=== PATIENT | female | born 1950 | race Caucasian/White ===

== ENCOUNTER 2025-07-03 09:35 | Emergency (ER) | payer MEDICARE, OTHER, SELFPAY ==
--- OUTSIDE RECORDS SUMMARY | 2021-02-22 09:30 | XMS_ITS | Continuity of Care Document ---
Author Organization [facility] Address [address] [place] [address] Phone Care Team Providers Care Director Product Management Name Role Phone Silvino PT, DPT, Compa Unavailable Unavailab le Procedures Procedure Date Therapeutic Activities PT Evaluation Moderate Complexity Manual Therapy Therapeutic Activities Advance Directives Directive Yes / No Effective Date File Name No Information Encounters Encounter Description Practice Location Reason(s) For Visit Diagnoses Date Provider Providers Copied on Encounter [facility], [address], [place], [place], [id number], tel:[phone] Brittani Oscar [facility] [place] No Information Silvino Segovia Referring Provider: Samuel Mclain, [address] [place] [address], [id number]. tel:[phone] [address], [place], [place], [id number], tel:[phone] Walton [facility] No Information Silvino Segovia Family History Family Member Type Diagnosis Age At Onset No Information Payers Payer name Insurance type Covered green party ID Authorjanell kolb(s) Medicare [place]LIN [id number] [facility] [facility] CI [id number] Social History Type Description Quantity Date Captured Comments Sex Female Smoking Status No Information Chief Complaint And Reason For Visit No Information Reason For Referral Reason For Referral No Information History Of Present Illness Encounter Date Complaint History Of Prese nt Illness No Information Functional Status Date Functional Assessmen t No Information Instructions Date Instruction Additional Infor mation Giving encouragement to exercise Related to Overweight Giving encouragement to exercise Related to Overweight Assessments Type Assessment Date No Information Patient Care Teams Name Effective Dates (start - stop) Status Members No Information
--- OUTSIDE RECORDS SUMMARY | 2025-05-19 08:52 | XMS_ITS | Encounter Summary ---
Author Organization [facility] [employer] [facility] Address [address] [address] [place] [address] Care Team Providers Care Dockworker Name Role Phone Compa Guevara MD Primary Care Provider [phone] Provider, No Attributed RESOURCE Unavailable Unavailable Rain Castle RN Unavailable [phone] Compa Guevara MD Unavailable [phone] Reason for Visit * FCC PT (Routine) [...] PROC Compa Guevara MD [address] [facility] [address] Phone: tel: fax: [facility] [address] [place] [address] Phone: tel: fax: Referral ID Status Reason Start Date Expiration Date Visits Requested Visits Authorized [id number] Authorized Continuity of Care 05/19/2025 09/22/2025 99 99 Encounter Details Date Type Department Care Team (Latest Contact Info) Description 05/19/2025 8:52 AM CDT - 05/19/2025 11:59 PM CDT Hospital Encounter [facility] PH[facility]ICAL THERAPY [address] [facility] [address] [place] [address] Compa Guevara MD [address] [place] [address] Miranda Rose, PT [address] [place] [address] Unsteadiness Discharge Disposition: Still a Patient Social [...] often do you attend chur ch or amish services? Never 11/19/2023 Do you belong to any clubs o r organizations such as uatsdin groups, unions, fraternal or athletic groups, or [...] Answer Date Recorded PHQ-2 Total 3 04/20/2025 [facility] Occup[facility] ional Health - Occupational [...] place to sleep or slept in a senior living (including now)? No 11/19/2023 Housing Stability Vital Sign Answer Henrik e Recorded In the last 12 months, was t here a time when you were not able to pay the mortgage or rent on time? No 09/02/2024 In the past 12 months, how m any times have you moved where you were living? 0 09/02/2024 At any time in the past [address] [facility], were you homeless or living in a senior living (including now)? No 09/02/2024 Hunger Vital Sign [...] any time in the past [address] [facility], were you homeless or living in a senior living (including now)? No 04/20/2025 [facility] Utilities Answer Date Recorded In the past [...] DAILY (PLEASE CALL TO SCHEDULE FOLLOW UP [phone]) 90 tablet 3 5 DULoxetine (CYMBALTA) 60 [...] Vitamin C 40mg, Grape Seed Extract 26.3mg, [place] Fruit Extract 100mg, L-lysine 125mg OIL OF [...] nasal sprayIndications:Pl ugged feeling in ear, right [place] 2 sprays into each nostril 1 time [...] CDT Patient Name: Ace Domínguez : 1950 [facility]#: [id number] MR#: [id number] ZAYRA: [id number] Referring Provider: No ref. provider found Reason [...] this program: Increase Strength and improve balance Hoahaoism/Cultural Practices Incorporated into Care: none Preferred Learning [...] Total Time: 42 minutes Treatment: Access Code: [email or web address] Exercises - Seated March - 2 x [...] with SPC and no loss of balance Agricultural Scientist Goals: To be met within 12 weeks: [...] Compa Benson MD for [facility]. If you have any questions or concerns regarding this patient's physical therapy evaluation or plan of care, please contact me at [phone]. Sincerely, Miranda Rose PT, DPT Cosigned by Compa Guevara MD at 05/19/2025 2:16 PM CDT documented in this encounter Plan of Treatment Upcoming Encounters Date Type Department Care Team (Latest Contact Info) Description 07/06/2025 4:00 PM CDT Appointment [facility] PHYSICAL THERAPY [address] [facility] [address] [place] [address] Compa Guevara MD [address] [place] [address] Miranda Rose, PT [address] [place] [address] 07/20/2025 10:00 AM CDT Office Visit [facility] [address] [facility] [address] [place] [address] Addi Matias, DPM [address] [place] [address] Discharge Disposition: Home, Self Care 07/22/2025 9:45 AM CDT Appointment [facility] PHYSICAL THERAPY [address] [place] [address] Compa Guevara MD [address] [place] [address] Miranda Rose, PT [address] [place] [address] 07/28/2025 9:30 AM VOCATIONAL ADVISER Office Visit [facility] [place] [facility] [address] [place] [address] Compa Guevara MD [address] [place] [address] Discharge Disposition: Home, Self Care 07/28/2025 3:15 PM VOCATIONAL ADVISER Appointment [facility] PH[facility]ICAL THERAPY [address] [facility] [address] [place] [address] Compa Guevara MD [address] [place] [address] Miranda Rose, PT [address] [place] [address] 08/03/2025 9:15 AM VOCATIONAL ADVISER Appointment [facility] PHYSICAL THERAPY [address] [place] [address] Compa Guevara MD [address] [place] [address] Miranda Rose, PT [address] [place] [address] 2025 2:30 PM VOCATIONAL ADVISER Appointment [facility] PHYSICAL THERAPY [address] [place] [address] Compa Guevara MD [address] [place] [address] Miranda Rose, PT [address] [place] [address] 08/13/2025 9:00 AM VOCATIONAL ADVISER Appointment [facility] PH[facility]ICAL THERAPY [address] [place] [address] Compa Guevara MD [address] [place] [address] Miranda Rose, PT [address] [place] [address] 10/18/2025 8:30 AM VOCATIONAL ADVISER Ancillary Procedure [facility] [address] [place] [address] Discharge Disposition: Home, Self Care documented as of this encounter Goals Goal Patient Goal Type Associated Problems Recent Progress Patient-Stated? Author DIET - REDUCE SUGAR INTAKE Diet Not on track( 10:54 AM CDT) No Rain Castle APRN-FURNACE INSTALLER DIET - KEEP A DAILY FOOD DIARY Diet Yes Mariangel Virk, SENAIT Note: 07/17/22 Use a food journal or [employer] It mariela to document all food eaten [...] gait documented in this encounter Care Teams Dockworker Relationship Specialty Start Date End Date Compa Guevara MD [address] [place] [address] PCP - General Internal Medicine 08/18/19 Compa Guevara MD [address] [place] [address] PCP - Attributed Provider 03/17/21 Provider, No Attributed, RESOURCE [address] 08/13/16 Rain Castle, RN [address] [facility] [place] [address] Fine SanderSpooler Operator Automatic Medicine 05/18/15 documented as of this encounter
--- OUTSIDE RECORDS SUMMARY | 2025-05-21 09:14 | XMS_ITS | Encounter Summary ---
Author Organization [facility] [employer] [facility] Address [address] [place] [address] [address] [place] [address] Care Team Providers Care Master Cosmetologist Name Role Phone Compa Guevara MD Primary Care Provider Provider, No Attributed RESOURCE Unavailable Unavailable Rain Castle RN Unavailable [phone] Compa Guevara MD Unavailable [phone] Reason for Visit * FCC PT (Routine) [...] PROC Compa Guevara MD [address] [facility] [address] Phone: tel: fax: [facility] [address] [place] [place] [address] Phone: tel: fax: Referral ID Status Reason Start Date Expiration Date Visits Requested Visits Authorized [id number] Authorized Continuity of Care 05/19/2025 09/22/2025 99 99 Encounter Details Date Type Department Care Team (Latest Contact Info) Description 05/21/2025 9:14 AM CDT - 05/21/2025 11:59 PM CDT Hospital Encounter [facility] PHYSICAL THERAPY [address] [facility] [place] [address] Compa Guevara MD [address] [place] [address] Miranda Rose, PT [address] [place] [address] Unsteadiness Discharge Disposition: Still a Patient Social [...] any clubs o r organizations such as confucianist groups, unions, fraternal or athletic groups, or [...] Answer Date Recorded PHQ-2 Total 3 04/20/2025 [facility] of Occupat ional Health - Occupational [...] place to sleep or slept in a skilled nursing (including now)? No 11/19/2023 Housing Stability Vital Sign Answer Henrik e Recorded In the last 12 months, was t here a time when you were not able to pay the mortgage or rent on time? No 09/02/2024 In the past 12 months, how m any times have you moved where you were living? 0 09/02/2024 At any time in the past 12 m [facility], were you homeless or living in a skilled nursing (including now)? No 09/02/2024 Hunger Vital Sign [...] any time in the past 12 m [facility], were you homeless or living in a skilled nursing (including now)? No 04/20/2025 [facility] Utilities Answer Date Recorded In the [...] DAILY (PLEASE CALL TO SCHEDULE FOLLOW UP [phone]) 90 tablet 3 5 DULoxetine (CYMBALTA) 60 [...] Vitamin C 40mg, Grape Seed Extract 26.3mg, [place] Fruit Extract 100mg, L-lysine 125mg OIL OF [...] nasal sprayIndications:Pl ugged feeling in ear, right [place] 2 sprays into each nostril 1 time [...] Patient Name: Ace Domínguez : 1950 MR#: [id number] Referring Provider: Compa Guevara MD Therapy Session [...] Info) Description 07/06/2025 4:[address] [facility] PHYSICAL THERAPY [address] [place] [address] [place] [place] [address] Compa Guevara MD [address] [place] [place] [address] Miranda Rose, PT [address] [place] [place] [address] 07/20/2025 10:00 AM CDT Office Visit [facility] [address] [place] [address] [place] [place] [address] Addi Matias, DPM [address] [place] [address] [place] [address] Discharge Disposition: Home, Self Care 07/22/2025 9:[address] [facility] PHYSICAL THERAPY [address] [place] [address] [address] [place] [address] Compa Guevara MD [address] [place] [place] [address] Miranda Rose, PT [address] [place] [address] 07/28/2025 9:30 AM PATTERN MAKER Office Visit [facility] [place] [facility] [address] [place] [address] [place] [address] Compa Guevara MD [address] [place] [place] [address] Discharge Disposition: Home, Self Care 07/28/2025 3:15 PM PATTERN MAKER Appointment [facility] PHYSICAL THERAPY [address] [place] [address] [place] [address] Compa Guevara MD [address] [place] [address] [place] [address] Miranda Rose, PT [address] [place] [place] [address] 08/03/2025 9:15 AM PATTERN MAKER Appointment [facility] PHYSICAL THERAPY [address] [place] [address] [place] [address] Compa Guevara MD [address] [place] [place] [address] Miranda Rose, PT [address] [place] [address] 2025 2:30 PM PATTERN MAKER Appointment [facility] PHYSICAL THERAPY [address] [place] [address] [place] [address] Compa Guevara MD [address] [place] [place] [address] Miranda Rose, PT [address] [place] [address] 08/13/2025 9:00 AM PATTERN MAKER Appointment [facility] PHYSICAL THERAPY [address] [place] [address] [place] [address] Compa Guevara MD [address] [place] [address] Miranda Rose, PT [address] [place] [address] 10/18/2025 8:30 AM PATTERN MAKER Ancillary Procedure [facility] RAD[facility] MARTIN [address] [place] [address] [place] [address] [place] [id number] Discharge Disposition: Home, Self Care documented as of this encounter Goals Goal Patient Goal Type Associated Problems Recent Progress Patient-Stated? Author DIET - REDUCE SUGAR INTAKE Diet Not on track( 10:54 AM CDT) No Rain Castle APRN-CNP DIET - KEEP A DAILY FOOD DIARY Diet Yes Mariangel Virk, RN Note: 07/17/22 Use a food journal or Mis [employer] It mariela to document all food eaten [...] 5 10:00 AM CDT) No Rain Castle, HOT BLASTER-WET MIX OPERATOR documented as of this encounter Visit Diagnoses Not on filedocumented in this encounter Care Teams Master Cosmetologist Relationship Specialty Start Date End Date Compa Guevara MD [address] [facility] [address] PCP - General Internal Medicine 08/18/19 Compa Guevara MD [address] [facility] [address] PCP - Attributed Provider 03/17/21 Provider, No Attributed, RESOURCE [address] 08/13/16 Rain Castle, RN [address] [facility] [place] [address] Hedge Fund PrincipalTeleradiologist Medicine 05/18/15 documented as of this encounter
--- OUTSIDE RECORDS SUMMARY | 2025-05-27 08:57 | XMS_ITS | Encounter Summary ---
Author Organization [facility] [employer] [facility] Address [address] [address] [place] [address] Care Team Providers Care Tax Analyst Name Role Phone Compa Guevara MD Primary Care Provider [phone] Provider, No Attributed RESOURCE Unavailable Unavailable Rain Castle RN Unavailable Compa Guevara MD Unavailable [phone] Reason for Visit * FCC PT (Routine) [...] PROC Compa Guevara MD [address] [place] [address] Phone: tel: fax: [facility] [address] [place] [address] Phone: tel: fax: Referral ID Status Reason Start Date Expiration Date Visits Requested Visits Authorized [id number] Authorized Continuity of Care 05/19/2025 09/22/2025 99 99 Encounter Details Date Type Department Care Team (Latest Contact Info) Description 05/27/2025 8:57 AM CDT - 05/27/2025 11:59 PM CDT Hospital Encounter [facility] PHYSICAL THERAPY [address] [facility] [place] [address] Compa Guevara MD [address] [place] [address] Miranda Rose, PT [address] [place] [address] Unsteadiness Discharge Disposition: Still a Patient Social [...] often do you attend chur ch or advent services? Never 11/19/2023 Do you belong to any clubs o r organizations such as yazidi groups, unions, fraternal or athletic groups, or [...] Answer Date Recorded PHQ-2 Total 3 04/20/2025 [facility] of Occupat ional Health - Occupational Stress [...] place to sleep or slept in a fci (including now)? No 11/19/2023 Housing Stability Vital Sign Answer Henrik e Recorded In the last 12 months, was t here a time when you were not able to pay the mortgage or rent on time? No 09/02/2024 In the past 12 months, how m any times have you moved where you were living? 0 09/02/2024 At any time in the past 12 m [facility], were you homeless or living in a fci (including now)? No 09/02/2024 Hunger Vital Sign [...] any time in the past 12 m [facility], were you homeless or living in a fci (including now)? No 04/20/2025 [facility] Utilities Answer Date Recorded In the [...] DAILY (PLEASE CALL TO SCHEDULE FOLLOW UP [phone]) 90 tablet 3 5 DULoxetine (CYMBALTA) 60 [...] Vitamin C 40mg, Grape Seed Extract 26.3mg, [place] Fruit Extract 100mg, L-lysine 125mg OIL OF [...] nasal sprayIndications:Pl ugged feeling in ear, right [place] 2 sprays into each nostril 1 time [...] Patient Name: Ace Domínguez : 1950 MR#: [id number] Referring Provider: Compa Guevara MD Therapy Session [...] Description 07/06/2025 4:00 PM CDT Appointment [facility] PHYSICAL THERAPY [address] [place] [address] [place] [address] Compa Guevara MD [address] [place] [address] Miranda Rose, PT [address] [place] [address] 07/20/2025 10:00 AM CDT Office Visit [facility] [address] [place] [address] [place] [address] Addi Matias, DPM [address] [place] [address] [place] [address] Discharge Disposition: Home, Self Care 07/22/2025 9:45 AM CDT Appointment [facility] PHYSICAL THERAPY [address] [place] [address] [place] [address] Compa Guevara MD [address] [place] [address] Miranda Rose, PT [address] [place] [address] 07/28/2025 9:30 AM TRAFFIC POLICE OFFICER Office Visit [place] [facility] [address] [place] [address] Compa Guevara MD [address] [place] [address] Discharge Disposition: Home, Self Care 07/28/2025 3:15 PM TRAFFIC POLICE OFFICER Appointment [facility] PHYSICAL THERAPY [address] [place] [address] [place] [address] Compa Guevara MD [address] [place] [address] Miranda Rose, PT [address] [place] [address] 08/03/2025 9:15 AM TRAFFIC POLICE OFFICER Appointment [facility] PHYSICAL THERAPY [address] [place] [address] [place] [address] Compa Guevara MD [address] [place] [address] Miranda Rose, PT [address] [place] [address] 2025 2:30 PM TRAFFIC POLICE OFFICER Appointment [facility] PHYSICAL THERAPY [address] [place] [address] [place] [address] Compa Guevara MD [address] [place] [address] Miranda Rose, PT [address] [place] [address] 08/13/2025 9:00 AM TRAFFIC POLICE OFFICER Appointment [facility] PHYSICAL THERAPY [address] [place] [address] [place] [address] Compa Guevara MD [address] [place] [address] Mrianda Rose, PT [address] [place] [address] 10/18/2025 8:30 AM TRAFFIC POLICE OFFICER Ancillary Procedure [facility] [place] [facility] [place] [address] [place] [address] Discharge Disposition: Home, Self Care documented as of this encounter Goals Goal Patient Goal Type Associated Problems Recent Progress Patient-Stated? Author DIET - REDUCE SUGAR INTAKE Diet Not on track( 10:54 AM CDT) No Rain Castle APRN-CNP DIET - KEEP A DAILY FOOD DIARY Diet Yes Mariangel Virk, RN Note: 07/17/22 Use a food journal or [employer] It mariela to document all food eaten [...] 5 10:00 AM CDT) No Rain Castle, CORPORATE RELATIONS DIRECTOR-AGRICULTURAL ADVISER documented as of this encounter Visit Diagnoses Not on filedocumented in this encounter Care Teams Tax Analyst Relationship Specialty Start Date End Date Compa Guevara MD [address] [place] [address] PCP - General Internal Medicine 08/18/19 Compa Guevara MD [address] [facility], [place] [id number] PCP - Attributed Provider 03/17/21 Provider, No Attributed, RESOURCE [address] 08/13/16 Rain Castle, RN [address] [facility], [place] [id number] Material MoverWorkforce Analyst Medicine 05/18/15 documented as of this encounter
--- OUTSIDE RECORDS SUMMARY | 2025-06-02 08:32 | XMS_ITS | Encounter Summary ---
Author Organization [facility] [employer] [facility] Address [address] [address] [place] [address] Care Team Providers Care Health Editor Name Role Phone Compa Guevara MD Primary Care Provider [phone] Provider, No Attributed RESOURCE Unavailable Unavailable Rain Castle RN Unavailable [phone] Compa Guevara MD Unavailable [phone] Reason for Visit * FCC PT (Routine) [...] PROC Compa Guevara MD [address] [facility] [place] [place] [address] Phone: tel: fax: [facility] [address] [place] [address] Phone: tel: fax: Referral ID Status Reason Start Date Expiration Date Visits Requested Visits Authorized [id number] Authorized Continuity of Care 05/19/2025 09/22/2025 99 99 Encounter Details Date Type Department Care Team (Latest Contact Info) Description 06/02/2025 8:32 AM CDT - 06/02/2025 11:59 PM CDT Hospital Encounter [facility] PHYSICAL THERAPY [address] [facility] [place] [address] Compa Guevara MD [address] [place] [address] Miranda Rose, PT [address] [place] [address] Unsteadiness Discharge Disposition: Still a Patient Social [...] often do you attend chur ch or hoahaoism services? Never 11/19/2023 Do you belong to any clubs o r organizations such as pentecostal groups, unions, fraternal or athletic groups, or [...] Answer Date Recorded PHQ-2 Total 3 04/20/2025 [facility] - Occupational [...] [facility] in the [facility] were you [facility] or living in [...] any time in the past 12 m [facility], were you homeless or living in a senior living (including now)? No 04/20/2025 [facility] Utilities Answer Date Recorded In the past [...] DAILY (PLEASE CALL TO SCHEDULE FOLLOW UP [phone]) 90 tablet 3 5 DULoxetine (CYMBALTA) 60 [...] Vitamin C 40mg, Grape Seed Extract 26.3mg, [place] Fruit Extract 100mg, L-lysine 125mg OIL OF [...] nasal sprayIndications:Pl ugged feeling in ear, right [place] 2 sprays into each nostril 1 time [...] Progress Notes * Miranda Rose, PT - 06/02/2025 9:06 AM CDT Outpatient Physical Therapy Daily Treatment Note Patient Name: Ace Domínguez : 1950 MR#: [id number] Referring Provider: Compa Guevara MD Therapy Session Reason for therapy: Unsteadiness Visit Number: 4 Medicare Certification: 05/19/25 through 08/11/25 Therapy Diagnosis: decreased functional strength, decreased balance, decreased endurance Subjective: Bethany states that she has been doing her exercises at home, but hasn't been able to do the chairyoga yet. She feels like her strength is slowly improving. Pain Pain Scale Used: 0-10 Pain Ratin Nature of pain: No pain Comment: No pain Treatment: Therapeutic Exercise (27 minutes): -Nustep x7 minutes Level 3 -Seated exercises: -Alt marching 2x20 2# -LAQ 2x10 B 2# -Hip abd 2x10 GTB -Knee flexion 2x10 B GTB -Hip add ball squeeze 3 hold 2x10 -Sit to stand from mat table 2x10 no hands for 2nd set -Standing exercises: done in parallel bars -Alt marching 2x20 -Hip extension 2x10 B -Hip abd 2x10 B -Heel raises 2x10 -Toe raises 2x10 -Mini squats 2x10 Neuromuscular Reeducation (13 minutes): -Walking on foam beam: -fwd x6 lengths -retro walking x6 lengths -sidestep x3 lengths B -Tandem stance on floor 2x20 B with intermittent UE support -Step on/off Airex pad x10 B -WBOS on Airex pad: -Eyes open 2x30 -Eyes closed 2x10 Assessment: Patient verbalizes understanding of home exercise program? yes-continue with current program Comments: Able to do seated and standing exercises. She needed cues to lean forward with sit to stand. She also needed cues for body awareness and shifting her weight properly in order to maintain her balance.She had tendency to over compensate by shifting too much weight into toes with eyes closed. Plan: Continue skilled PT services Comment: Continue with balance and strengthening Session Summary: Total timed: 40 minutes Total untimed: 0 minutes Total treatment time: 40 minutes documented in this encounter Plan of Treatment Upcoming Encounters Date Type Department Care Team (Latest Contact Info) Description 07/06/2025 4:00 PM CDT Appointment [facility] PHYSICAL THERAPY [address] [place] [address] Compa Guevara MD [address] [facility] [place] [address] Miranda Rose, PT [address] [place] [address] 07/20/2025 10:00 AM CDT Office Visit [facility] [address] [place] [address] Addi Matias, DPM [address] [place] [address] Discharge Disposition: Home, Self Care 07/22/2025 9:45 AM CDT Appointment [facility] PHYSICAL THERAPY [address] [place] [address] Compa Guevara MD [address] [facility] [place] [address] Miranda Rose, PT [address] [place] [address] 07/28/2025 9:30 AM GLASS BENDER [facility] [address] [place] [address] Cmopa Guevara MD [address] [place] [address] Discharge Disposition: Home, Self Care 07/28/2025 3:15 PM GLASS BENDER Appointment [facility] PHYSICAL THERAPY [address] [facility] [place] [address] Compa Guevara MD [address] [place] [address] Miranda Rose, PT [address] [place] [address] 08/03/2025 9:15 AM GLASS BENDER Appointment [facility] PHYSICAL THERAPY [address] [facility] [place] [address] Compa Guevara MD [address] [place] [address] Miranda Rose, PT [address] [place] [address] 2025 2:30 PM GLASS BENDER Appointment [facility] PHYSICAL THERAPY [address] [facility] [place] [address] Compa Guevara MD [address] [place] [address] Miranda Rose, PT [address] [place] [address] 08/13/2025 9:00 AM GLASS BENDER Appointment [facility] PHYSICAL THERAPY [address] [place] [facility] [place] [address] Compa Guevara MD [address] [place] [address] Miranda Rose, PT [address] [place] [address] 10/18/2025 8:30 AM GLASS BENDER Ancillary Procedure [facility] [address] [place] [place] [address] Discharge Disposition: Home, Self Care documented as of this encounter Goals Goal Patient Goal Type Associated Problems Recent Progress Patient-Stated? Author DIET - REDUCE SUGAR INTAKE Diet Not on track( 10:54 AM CDT) No Rain Castle, ALEXX DIET - KEEP A DAILY FOOD DIARY Diet Yes Mariangel Virk, SENAIT Note: 07/17/22 Use a food journal or Channel[employer] It mariela to document all food eaten [...] track( 10:54 AM CDT) No Rain Castle, LOREETHYLENE PLANT OPERATOR Note: Every other day use bowflex and treadmill at home, increasing length and intensity gradually. HGB A1C < 7 Result Component 5.8( 8:25 AM CDT) No Mariangel Virk, RN Note: 07/17/22 Weight < 90.719 kg (200 lb) Weight 115.6 kg (254 lb 12.8 oz)( 5 10:00 AM CDT) No Rain Castle, IOS ARCHITECT-ETHYLENE PLANT OPERATOR documented as of this encounter Visit Diagnoses Not on filedocumented in this encounter Care Teams Health Editor Relationship Specialty Start Date End Date Compa Guevara MD [address] [facility], [place] [id number] PCP - General Internal Medicine 08/18/19 Compa Guevara MD [address] [facility] [place] [address] PCP - Attributed Provider 03/17/21 Provider, No Attributed, RESOURCE [address] 08/13/16 Rain Castle, RN [address] [facility], [place] [id number] Body Component EngineerSpot Welder Line Medicine 05/18/15 documented as of this encounter
--- OUTSIDE RECORDS SUMMARY | 2025-06-04 08:17 | XMS_ITS | Encounter Summary ---
Author Organization [facility] [employer] [facility] Address [address] [address] [place] [address] Care Team Providers Care Photoengraving Photographer Name Role Phone Compa Guevara MD Primary Care Provider [phone] Provider, No Attributed RESOURCE Unavailable Unavailable Rain Castle RN Unavailable [phone] Compa Guevara MD Unavailable [phone] Reason for Visit * FCC PT (Routine) [...] PROC Compa Guevara MD [address] [facility] [place] [address] Phone: tel: fax: [facility] [address] [place] [address] Phone: tel: fax: Referral ID Status Reason Start Date Expiration Date Visits Requested Visits Authorized [id number] Authorized Continuity of Care 05/19/2025 09/22/2025 99 99 Encounter Details Date Type Department Care Team (Latest Contact Info) Description 06/04/2025 8:17 AM CDT - 06/04/2025 11:59 PM CDT Hospital Encounter [facility] PHYSICAL THERAPY [address] [facility] [place] [address] Compa Guevara MD [address] [place] [address] Miranda Rose, PT [address] [place] [address] Unsteadiness Discharge Disposition: Still a Patient Social [...] often do you attend chur ch or caodaism services? Never 11/19/2023 Do you belong to any clubs o r organizations such as cheondoism groups, unions, fraternal or athletic groups, or [...] Recorded PHQ-2 Total 3 04/20/2025 [facility] of Occupat ional Health - Occupational [...] place to sleep or slept in a alf (including now)? No 11/19/2023 Housing Stability Vital Sign Answer Henrik e Recorded In the last 12 months, was t here a time when you were not able to pay the mortgage or rent on time? No 09/02/2024 In the past 12 months, how m any times have you moved where you were living? 0 09/02/2024 At any time in the past 12 m [facility], were you homeless or living in a alf (including now)? No 09/02/2024 Hunger Vital Sign [...] any time in the past 12 m [facility], were you homeless or living in a alf (including now)? No 04/20/2025 [facility] Utilities Answer Date Recorded In the [...] DAILY (PLEASE CALL TO SCHEDULE FOLLOW UP [phone]) 90 tablet 3 5 DULoxetine (CYMBALTA) 60 [...] Vitamin C 40mg, Grape Seed Extract 26.3mg, [place] Fruit Extract 100mg, L-lysine 125mg OIL OF [...] nasal sprayIndications:Pl ugged feeling in ear, right [place] 2 sprays into each nostril 1 time [...] Progress Notes * Miranda Rose, PT - 06/04/2025 8:57 AM CDT Outpatient Physical Therapy Daily Treatment Note Patient Name: Ace Domínguez : 1950 MR#: [id number] Referring Provider: Compa Guevara MD Therapy Session Reason for therapy: Unsteadiness Visit Number: 5 Medicare Certification: 05/19/25 through 08/11/25 Therapy Diagnosis: decreased functional strength, decreased balance, decreased endurance Subjective: Bethany reports that she was sore from last session. It lasted for a few days. Pain Pain Scale Used: 0-10 Pain Ratin Nature of pain: No pain Comment: No pain Treatment: Therapeutic Exercise (28 minutes): -Nustep x7 minutes Level 3 -Seated [...] raises 2x10 -Mini squats 2x10 Neuromuscular Reeducation (14 minutes): -Walking on foam beam: -fwd x6 lengths -retro walking x6 lengths -sidestep x3 lengths B -Tandem stance on floor 2x20 B with intermittent UE support -Step over/back 4 block x10 B -WBOS on Airex pad: -Eyes open x30 -Eyes closed x10 -Head turns left/right, up/down x10 each Assessment: Patient verbalizes understanding of home exercise program? yes-continue with current program Comments: Ace Penny tolerated exercises well. She needed cues to picker her feet when stepping over 4 block. She was able to maintain her balance better in tandem stance than last session and she kept her balance well with head turns on Airex pad. Plan: Continue skilled PT services Comment: Continue with balance and strengthening Session Summary: Total timed: 42 minutes Total untimed: 0 minutes Total treatment time: 42 minutes documented in this encounter Plan of Treatment Upcoming Encounters Date Type Department Care Team (Latest Contact Info) Description 07/06/2025 4:00 PM CDT Appointment [facility] PHYSICAL THERAPY [address] [place] [address] [place] [address] Compa Guevara MD [address] [place] [address] Miranda Rose, PT [address] [place] [address] [place] [address] 07/20/2025 10:00 AM CDT Office Visit [facility] [address] [place] [address] [place] [address] Addi Matias, DPM [address] [place] [address] [place] [address] Discharge Disposition: Home, Self Care 07/22/2025 9:45 AM CDT Appointment [facility] PHYSICAL THERAPY [address] [place] [address] [place] [address] Compa Guevara MD [address] [place] [address] Miranda Rose, PT [address] [place] [address] 07/28/2025 9:30 AM MERRY GO ROUND OPERATOR [facility] [address] [place] [address] Compa Guevara MD [address] [place] [address] Discharge Disposition: Home, Self Care 07/28/2025 3:15 PM MERRY GO ROUND OPERATOR Appointment [facility] PHYSICAL THERAPY [address] [facility] [place] [address] Compa Guevara MD [address] [place] [address] Miranda Rose, PT [address] [place] [address] 08/03/2025 9:15 AM MERRY GO ROUND OPERATOR Appointment [facility] PHYSICAL THERAPY [address] [facility] [place] [address] Compa Guevara MD [address] [place] [address] Miranda Rose, PT [address] [place] [address] 2025 2:30 PM MERRY GO ROUND OPERATOR Appointment [facility] PHYSICAL THERAPY [address] [facility] [place] [address] Compa Guevara MD [address] [place] [address] Miranda Rose, PT [address] [place] [address] 08/13/2025 9:00 AM MERRY GO ROUND OPERATOR Appointment [facility] PHYSICAL THERAPY [address] [place] [address] [place] [address] Compa Guevara MD [address] [place] [address] Miranda Rose, PT [address] [place] [address] 10/18/2025 8:30 AM MERRY GO ROUND OPERATOR Ancillary Procedure [facility] [address] [place] [address] Discharge Disposition: Home, Self Care documented as of this encounter Goals Goal Patient Goal Type Associated Problems Recent Progress Patient-Stated? Author DIET - REDUCE SUGAR INTAKE Diet Not on track( 10:54 AM CDT) No Rain Castle, ALEXX DIET - KEEP A DAILY FOOD DIARY Diet Yes Mariangel Virk, RN Note: 07/17/22 Use a food journal or [employer]angent It mariela to document all food eaten [...] 5 10:00 AM CDT) No Rain Castle, DINING SERVICES DIRECTOR-FIELD HORTICULTURAL SPECIALTY GROWER documented as of this encounter Visit Diagnoses Not on filedocumented in this encounter Care Teams Photoengraving Photographer Relationship Specialty Start Date End Date Compa Guevara MD [address] [facility], [place] [id number] PCP - General Internal Medicine 08/18/19 Compa Guevara MD [address] [facility], [place] [id number] PCP - Attributed Provider 03/17/21 Provider, No Attributed, RESOURCE [address] 08/13/16 Rain Castle, RN [address] [facility], [place] [id number] Contractor General BuildingMonogram Technician Medicine 05/18/15 documented as of this encounter
--- OUTSIDE RECORDS SUMMARY | 2025-06-08 08:04 | XMS_ITS | Encounter Summary ---
Author Organization [facility] Address [address] [address] [place] [address] Care Team Providers Care General Office Worker Name Role Phone Compa Guevara MD Primary Care Provider [phone] Provider, No Attributed RESOURCE Unavailable Unavailable Rain Castle RN Unavailable [phone] Compa Guevara MD Unavailable [phone] Reason for Visit * FCC PT (Routine) [...] [facility] [place] [address] Phone: tel: fax: [facility] [address] [place] [address] Phone: tel: fax: Referral ID Status Reason Start Date Expiration Date Visits Requested Visits Authorized [id number] Authorized Continuity of Care 05/19/2025 09/22/2025 99 99 Encounter Details Date Type Department Care Team (Latest Contact Info) Description 06/08/2025 8:04 AM CDT - 06/08/2025 11:59 PM CDT Hospital Encounter [facility] [address] [facility] [place] [address] Compa Guevara MD [address] [place] [address] Miranda Rose, PT [address] [place] [address] Unsteadiness Discharge Disposition: Still a Patient Social [...] often do you attend chur ch or jehovah's witness services? Never 11/19/2023 Do you belong to any clubs o r organizations such as hindu groups, unions, fraternal or athletic groups, or [...] Answer Date Recorded PHQ-2 Total 3 04/20/2025 [facility] of Occupat ional Health - Occupational Stress [...] place to sleep or slept in a group home (including now)? No 11/19/2023 Housing Stability [...] any time in the past 12 m [facility], were you homeless or living in a group home (including now)? No 09/02/2024 Hunger Vital [...] any time in the past 12 m [facility], were you homeless or living in a group home (including now)? No 04/20/2025 [facility] Utilities Answer Date Recorded In the past [...] DAILY (PLEASE CALL TO SCHEDULE FOLLOW UP [phone]) 90 tablet 3 5 DULoxetine (CYMBALTA) 60 [...] Vitamin C 40mg, Grape Seed Extract 26.3mg, [place] Fruit Extract 100mg, L-lysine 125mg OIL OF [...] nasal sprayIndications:Pl ugged feeling in ear, right [place] 2 sprays into each nostril 1 time [...] Progress Notes * Miranda Rose, PT - 06/08/2025 8:16 AM CDT Outpatient Physical Therapy Daily Treatment Note Patient Name: Ace Domínguez : 1950 MR#: [id number] Referring Provider: Compa Guevara MD Therapy Session Reason for therapy: Unsteadiness Visit Number: 6 Medicare Certification: 05/19/25 through 08/11/25 Therapy Diagnosis: decreased functional strength, decreased balance, decreased endurance Subjective: Bethany states that her back is sore this sore. She states that she is going to the chiropractor today. Pain Pain Scale Used: 0-10 Pain Ratin Nature of pain: low back pain Comment: low back Treatment: Therapeutic Exercise (28 minutes): -Nustep x7 minutes Level 3 -Seated exercises: -Alt marching 2x20 2# -LAQ 2x10 B 2# -Hip abd 2x10 GTB -Knee flexion 2x10 B GTB -Hip add ball squeeze 3 hold 2x10 -Sit to stand from mat table 2x10 no hands -Standing exercises: done in parallel bars -Alt marching 2x20 -Hip extension 2x10 B -Hip abd 2x10 B -Heel raises 2x10 -Toe raises 2x10 -Mini squats 2x10 Neuromuscular Reeducation (14 minutes): -Walking on foam beam: -fwd x6 lengths -retro walking x6 lengths -sidestep x3 lengths B -Tandem stance on floor 2x20 B with intermittent UE support -Step over/back small albert x10 fwd B, x10 lat B -WBOS on Airex pad: -Eyes open x30 -Eyes closed x15 -Head turns left/right, up/down x10 each Assessment: Patient verbalizes understanding of home exercise program? yes-continue with current program Comments: Ace Penny did well with exercises today even though her back was sore. She needed less support for tandem stance today. She did need cues to picket labor union her feet with stepping over the albert. Plan: Continue skilled PT services Comment: Continue with balance and strengthening Session Summary: Total timed: 42 minutes Total untimed: 0 minutes Total treatment time: 42 minutes documented in this encounter Plan of Treatment Upcoming Encounters Date Type Department Care Team (Latest Contact Info) Description 07/06/2025 4:00 PM CDT Appointment [facility] [address] [address] [place] [address] Compa Guevara MD [address] [facility] [place] [address] Miranda Rose, PT [address] [place] [address] 07/20/2025 10:00 AM CDT Office Visit [facility] [address] [address] [place] [address] Addi Matias, DPM [address] [address] [place] [address] Discharge Disposition: Home, Self Care 07/22/2025 9:45 AM CDT Appointment [facility] [address] [address] [place] [address] Compa Guevara MD [address] [place] [address] Miranda Rose, PT [address] [place] [address] 07/28/2025 9:30 AM ELECTRICIAN CHIEF [facility] [address] [place] [address] Compa Guevara MD [address] [place] [address] Discharge Disposition: Home, Self Care 07/28/2025 3:15 PM ELECTRICIAN CHIEF Appointment [facility] [address] [facility] [place] [address] Compa Guevara MD [address] [place] [address] Miranda Rose, PT [address] [place] [address] 08/03/2025 9:15 AM ELECTRICIAN CHIEF Appointment [facility] [address] [facility] [place] [address] Compa Guevara MD [address] [place] [address] Miranda Rose, PT [address] [place] [address] 2025 2:30 PM ELECTRICIAN CHIEF Appointment [facility] [address] [facility] [place] [address] Compa Guevara MD [address] [place] [address] Miranda Rose, PT [address] [place] [address] 08/13/2025 9:00 AM ELECTRICIAN CHIEF Appointment [facility] [address] [facility] [address] [place] [address] Compa Guevara MD [address] [place] [address] Miranda Rose, PT [address] [place] [address] 10/18/2025 8:30 AM ELECTRICIAN CHIEF Ancillary Procedure [facility] JULIA MARTIN [address] [place] [address] Discharge Disposition: Home, Self Care documented as of this encounter Goals Goal Patient Goal Type Associated Problems Recent Progress Patient-Stated? Author DIET - REDUCE SUGAR INTAKE Diet Not on track( 022 10:54 AM CDT) No Rain Castle, ALEXX DIET - KEEP A DAILY FOOD DIARY Diet Yes Mariangel Virk, SENAIT Note: 07/17/22 Use a food journal or [employer] It mariela to document all food eaten [...] TIMES PER WEEK Exercise Not on track( 022 10:54 AM CDT) No Rain Castle APRN-USPS LETTER CARRIER Note: Every other day use bowflex and treadmill at home, increasing length and intensity gradually. HGB A1C < 7 Result Component 5.8( 5 8:25 AM CDT) No Mariangel Virk, RN Note: 07/17/22 Weight < 90.719 kg (200 lb) Weight 115.6 kg (254 lb 12.8 oz)( 5 10:00 AM CDT) No Rain Castle, SENIOR ADULTS DIRECTOR-USPS LETTER CARRIER documented as of this encounter Visit Diagnoses Not on filedocumented in this encounter Care Teams General Office Worker Relationship Specialty Start Date End Date Compa Guevara MD [address] [facility], [place] [id number] PCP - General Internal Medicine 08/18/19 Compa Guevara MD [address] [facility], [place] [id number] PCP - Attributed Provider 03/17/21 Provider, No Attributed, RESOURCE [address] 08/13/16 Rain Castle, RN [address] [facility], [place] [id number] Dead Mail CheckerElectric Sealing Machine Operator Medicine 05/18/15 documented as of this encounter
--- OUTSIDE RECORDS SUMMARY | 2025-06-15 14:01 | XMS_ITS | Encounter Summary ---
Author Organization [facility] [employer] [facility] Address [address] [place] [address] [address] [place] [address] Care Team Providers Care Cougar Hunter Name Role Phone Compa Guevara MD Primary Care Provider [phone] Provider, No Attributed RESOURCE Unavailable Unavailable Rain Castle RN Unavailable [phone] Compa Guevara MD Unavailable [phone] Reason for Visit * FCC PT (Routine) [...] Compa Guevara MD [address] [facility] [place] [address] Phone: tel: fax: [facility] [address] [place] [address] Phone: tel: fax: Referral ID Status Reason Start Date Expiration Date Visits Requested Visits Authorized [id number] Authorized Continuity of Care 05/19/2025 09/22/2025 99 99 Encounter Details Date Type Department Care Team (Latest Contact Info) Description 06/15/2025 2:01 PM CDT - 06/15/2025 11:59 PM CDT Hospital Encounter [facility] PHYSICAL THERAPY [address] [facility] [place] [address] Compa Guevara MD [address] [place] [address] Tanner Alvarado, CEREAL CHEMIST [address] [facility] [place] [address] Unsteadiness Discharge Disposition: Still a Patient Social [...] often do you attend chur ch or congregation services? Never 11/19/2023 Do you belong to any clubs o r organizations such as gnosticism groups, unions, fraternal or athletic groups, or [...] Answer Date Recorded PHQ-2 Total 3 04/20/2025 [facility] Occupat ional Health - [...] place to sleep or slept in a [place] (including now)? No 11/19/2023 Housing Stability Vital Sign Answer Henrik e Recorded In the last 12 months, was t here a time when you were not able to pay the mortgage or rent on time? No 09/02/2024 In the past 12 months, how m any times have you moved where you were living? 0 09/02/2024 At any time in the past 12 m [facility], were you homeless or living in a [place] facility (including now)? No 09/02/2024 Hunger Vital Sign [...] any time in the past 12 m [facility], were you homeless or living in a [place] facility (including now)? No 04/20/2025 [facility] Utilities Answer Date Recorded In the [...] No 02/11/2020 7:57 AM Elton Bashir RN * Because of a physical, mental, [...] DAILY (PLEASE CALL TO SCHEDULE FOLLOW UP [phone]) 90 tablet 3 5 DULoxetine (CYMBALTA) 60 [...] Vitamin C 40mg, Grape Seed Extract 26.3mg, [place] Fruit Extract 100mg, L-lysine 125mg OIL OF [...] nasal sprayIndications:Pl ugged feeling in ear, right [place] 2 sprays into each nostril 1 time [...] as of this encounter Progress Notes * Tanner Alvarado, CEREAL CHEMIST - 06/15/2025 2:17 PM CDT Outpatient Physical Therapy Daily Treatment Note Patient Name: Ace Domínguez : 1950 MR#: [id number] Referring Provider: Compa Guevara MD Therapy Session Reason for therapy: Unsteadiness Visit Number: 7 Medicare Certification: 05/19/25 through 08/11/25 Therapy Diagnosis: decreased functional strength, decreased balance, decreased endurance Subjective: Bethany reports she has done her exercises today and gone up and down steps a few times so her legs are sore. Pain Pain Scale Used: 0-10 Pain Ratin Nature of pain: legs Comment: soreness Treatment: Therapeutic Exercise (30 minutes): -Nustep x8 minutes Level 3 -Seated exercises: -Alt marching 2x20 2.5# -LAQ 2x10 B 2.5# -Hip abd 2x10 GTB -Knee flexion 2x10 [...] albert x10 fwd B, x10 lat B Assessment: Patient verbalizes understanding of home exercise program? yes-continue with current program Comments: Held off on progressing standing exercises due to increased leg soreness and fatigue today. Does well with previous exercises. Plan: Continue skilled PT services Comment: Continue with balance and strengthening Session Summary: Total timed: 40 minutes Total untimed: 0 minutes Total treatment time: 40 minutes documented in this encounter Plan of Treatment Upcoming Encounters Date Type Department Care Team (Latest Contact Info) Description 07/06/2025 4:00 PM CDT Appointment [facility] PHYSICAL THERAPY [address] [address] [place] [address] Compa Guevara MD [address] [facility] [address] Miranda Rose, PT [address] [facility] [place] [address] 07/20/2025 10:00 AM CDT Office Visit [facility] [address] [address] [place] [address] Addi Matias, DPM [address] [address] [place] [address] Discharge Disposition: Home, Self Care 07/22/2025 9:45 AM CDT Appointment [facility] PHYSICAL THERAPY [address] [address] [place] [address] Compa Guevara MD [address] [facility] [address] Miranda Rose, PT [address] [facility] [address] 07/28/2025 9:30 AM ACCOUNTS RECEIVABLE PROCESSOR Office Visit [facility] [address] [place] [address] Compa Guevara MD [address] [place] [address] Discharge Disposition: Home, Self Care 07/28/2025 3:15 PM ACCOUNTS RECEIVABLE PROCESSOR Appointment [facility] PHYSICAL THERAPY [address] [facility] [place] [address] Compa Guevara MD [address] [place] [address] Miranda Rose, PT [address] [place] [address] 08/03/2025 9:15 AM ACCOUNTS RECEIVABLE PROCESSOR Appointment [facility] PHYSICAL THERAPY [address] [facility] [place] [address] Compa Guevara MD [address] [place] [address] Miranda Rose, PT [address] [place] [address] 2025 2:30 PM ACCOUNTS RECEIVABLE PROCESSOR Appointment [facility] PHYSICAL THERAPY [address] [facility] [place] [address] Compa Guevara MD [address] [place] [address] Miranda Rose, PT [address] [place] [address] 08/13/2025 9:00 AM ACCOUNTS RECEIVABLE PROCESSOR Appointment [facility] PHYSICAL THERAPY [address] [facility] [place] [address] Compa Guevara MD [address] [place] [address] Miranda Rose, PT [address] [place] [address] 10/18/2025 8:30 AM ACCOUNTS RECEIVABLE PROCESSOR Ancillary Procedure [facility] [address] [facility] [address] [place] [address] Discharge Disposition: Home, Self Care documented as of this encounter Goals Goal Patient Goal Type Associated Problems Recent Progress Patient-Stated? Author DIET - REDUCE SUGAR INTAKE Diet Not on track( 10:54 AM CDT) No Rain Castle APRN-CNP DIET - KEEP A DAILY FOOD DIARY Diet Yes Mariangel Virk, RN Note: 07/17/22 Use a food journal or [employer] It mariela to document all food eaten [...] 5 8:25 AM CDT) No Mariangel Virk, SENAIT Note: 07/17/22 Weight < 90.719 kg (200 lb) Weight 115.6 kg (254 lb 12.8 oz)( 5 10:00 AM CDT) No Radigan, Rain A, MANAGER OF INTERNAL-GAS GENERATOR OPERATOR documented as of this encounter Visit Diagnoses Not on filedocumented in this encounter Care Teams Cougar Hunter Relationship Specialty Start Date End Date Compa Guevara MD [address] [facility], [place] [id number] PCP - General Internal Medicine 08/18/19 Compa Guevara MD [address] [facility], [place] [id number] PCP - Attributed Provider 03/17/21 Provider, No Attributed, RESOURCE [address] 08/13/16 Rain Castle, RN [address] [place] [address] Top Lift CompresserAir Traffic Control Operator Medicine 05/18/15 documented as of this encounter
--- OUTSIDE RECORDS SUMMARY | 2025-06-18 10:30 | XMS_ITS | Encounter Summary ---
Author Organization [facility] Address [address] [place] [address] [address] [place] [address] Care Team Providers Care Binding Machine Operator Name Role Phone Compa Guevara MD Primary Care Provider Provider, No Attributed RESOURCE Unavailable Unavailable Rain Castle RN Unavailable [phone] Compa Guevara MD Unavailable [phone] Reason for Visit * Reason Comments Obstructive Sleep Apnea Encounter Details Date Type Department Care Team (Late st Contact Info) Description 06/18/2025 10:30 AM CDT [place] [facility] 2 PULMONOLOGY CLINIC [address] [place] [address] Luis Duran DO [address] [place] [address] SARATH on CPAP (Primary Dx) Discharge Disposition: [...] How often do you attend chur or jainism services? Never 11/19/2023 Do you belong to any clubs o r organizations such as faith groups, unions, fraternal or athletic groups, or [...] Answer Date Recorded PHQ-2 Total 3 04/20/2025 [facility] [...] place to sleep or slept in a intermediate (including now)? No 11/19/2023 Housing Stability Vital [...] were you homeless or living in a intermediate (including now)? No 09/02/2024 Hunger Vital Sign [...] were you homeless or living in a intermediate (including now)? No 04/20/2025 [place] Utilities Answer Date Recorded In the past [...] Body Mass Index 41.13 08/03/2024 11:20 AM RIPSHEAR OPERATOR documented in this encounter Functional Status * [...] female who we are seeing in the [place] sleep clinic for followupof SARATH diagnosed by PSG. Ace Penny is currently on CPAP (AutoSet 9/13 cmH2O). Review of the recent data shows compliance of 57% (>=4h). Her overall compliance is 87% which is significantly improved compared to prior. Witha residual AHI of 1.9/h. Current Total Giddings Score: 9. Patient continues to work on [...] FIBER PO acetaminophen (TYLENOL) 500 mg tablet Qicfxiuhxzj-Djpkhdfyz-Jox C-Mn (GLUCOSAMINE-CHONDROITIN COMPLEX) capsule Probiotic Product (PROBIOTIC [...] Daily Use 5h45m 5h31m 3h10m 4h35m Total Giddings Score: 9 I spent a total of 25 minutes on the patient's care today including preparing for the visit, the visit, documentation, and follow-up care. This does not include any procedure time. Luis Duran DO PULMONARY, CRITICAL CARE, AND SLEEP MEDICINE [facility] documented in this encounter Plan of Treatment Upcoming Encounters Date Type Department Care Team (Latest Contact Info) Description 07/06/2025 4:00 PM CDT Appointment [facility] PHYSICAL THERAPY [address] [address] [place] [address] Compa Guevara MD [address] [facility] [address] Miranda Rose, PT [address] [place] [address] 07/20/2025 10:00 AM CDT Office Visit [facility] [address] [address] [place] [address] Addi Matias, DPM [address] [address] [facility] [address] Discharge Disposition: Home, Self Care 07/22/2025 9:45 AM CDT Appointment [facility] [address] [address] [place] [address] Compa Guevara MD [address] [facility] [address] Miranda Rose, PT [address] [facility] [address] 07/28/2025 9:30 AM RIPSHEAR OPERATOR Office [place] [facility] [place] [facility] [address] [place] [address] Compa Guevara MD [address] [place] [address] Discharge Disposition: Home, Self Care 07/28/2025 3:15 PM RIPSHEAR OPERATOR Appointment [facility] [address] [place] [address] Compa Guevara MD [address] [place] [address] Miranda Rose, PT [address] [place] [address] 08/03/2025 9:15 AM RIPSHEAR OPERATOR Appointment [facility] [address] [facility] [address] [place] [address] Compa Guevara MD [address] [place] [address] Miranda Rose, PT [address] [place] [address] 2025 2:30 PM RIPSHEAR OPERATOR Appointment [facility] [address] [facility] [address] [place] [address] Compa Guevara MD [address] [place] [address] Miranda Rose, PT [address] [place] [address] 08/13/2025 9:00 AM RIPSHEAR OPERATOR Appointment [facility] [address] [place] [address] Compa Guevara MD [address] [place] [address] Miranda Rose, PT [address] [place] [address] 10/18/2025 8:30 AM RIPSHEAR OPERATOR Ancillary Procedure [facility] RAD[facility] MARTIN [address] [place] [address] Discharge Disposition: Home, Self Care documented as of this encounter Goals Goal Patient Goal Type Associated Problems Recent Progress Patient-Stated? Author DIET - REDUCE SUGAR INTAKE Diet Not on track( 10:54 AM CDT) No Rain Castle APRN-CNP DIET - KEEP A DAILY FOOD DIARY Diet Yes Mariangel Virk, RN Note: 07/17/22 Use a food journal or GetIntent It mariela to document all food eaten [...] oz)( 5 10:00 AM CDT) Rain Park, LAB SUPPORT TECH-ICER HAND documented as of this encounter Visit Diagnoses Diagnosis SARATH on CPAP- Primary Obstructive sleep apnea (adult) (pediatric) documented in this encounter Care Teams Binding Machine Operator Relationship Specialty Start Date End Date Compa Guevara MD [address] [place] [address] PCP - General Internal Medicine 08/18/19 Compa Guevara MD [address] [place] [address] PCP - Attributed Provider 03/17/21 Provider, No Attributed, RESOURCE [address] 08/13/16 Rain Castle, RN [address] [place] [address] Display Card WriterSliver Former Medicine 05/18/15 documented as of this encounter
--- OUTSIDE RECORDS SUMMARY | 2025-06-25 14:43 | XMS_ITS | Encounter Summary ---
Author Organization [facility] Address [address] [place] [address] [address] [place] [address] Care Team Providers Care Microstrategy Bi Developer Name Role Phone Compa Guevara MD Primary Care Provider [phone] Provider, No Attributed RESOURCE Unavailable Unavailable Rain Castle RN Unavailable Compa Guevara MD Unavailable [phone] Reason for Visit * FCC PT (Routine) [...] [address] [facility] [place] [address] Phone: tel: fax: [facility] [address] [place] [address] Phone: tel: fax: Referral ID Status Reason Start Date Expiration Date Visits Requested Visits Authorized [id number] Authorized Continuity of Care 05/19/2025 09/22/2025 99 99 Encounter Details Date Type Department Care Team (Latest Contact Info) Description 06/25/2025 2:43 PM CDT - 06/25/2025 11:59 PM CDT Hospital Encounter [facility] PHYSICAL THERAPY [address] [facility] [place] [address] Compa Guevara MD [address] [place] [address] Miranda Rose, PT [address] [place] [address] Unsteadiness Discharge Disposition: Still a Patient Social [...] often do you attend chur ch or denominational services? Never 11/19/2023 Do you belong to [...] Answer Date Recorded PHQ-2 Total 3 04/20/2025 [facility] - Occupational [...] place to sleep or slept in a jail (including now)? No 11/19/2023 Housing Stability Vital [...] time in the past 12 m [facility], were you homeless or living in a jail (including now)? No 09/02/2024 Hunger Vital Sign [...] time in the past 12 m [facility], were you homeless or living in a jail (including now)? No 04/20/2025 [facility] Utilities Answer Date Recorded In [...] DAILY (PLEASE CALL TO SCHEDULE FOLLOW UP [phone]) 90 tablet 3 5 DULoxetine (CYMBALTA) 60 [...] Vitamin C 40mg, Grape Seed Extract 26.3mg, [place] Fruit Extract 100mg, L-lysine 125mg OIL OF [...] nasal sprayIndications:Pl ugged feeling in ear, right [place] 2 sprays into each nostril 1 time [...] Progress Notes * Miranda Rose, PT - 06/25/2025 3:20 PM CDT Outpatient Physical Therapy Daily Treatment Note Patient Name: Ace Domínguez : 1950 MR#: [id number] Referring Provider: Compa Guevara MD Therapy Session Reason for therapy: Unsteadiness Visit Number: 8 Medicare Certification: 05/19/25 through 08/11/25 Therapy Diagnosis: decreased functional strength, decreased balance, decreased endurance Subjective: Bethany states that she has a headache today. She reports that she can tell that her strength and balance are a little bit better. Pain Pain Scale Used: 0-10 Pain Ratin Nature of pain: headache Comment: took Advil Treatment: Therapeutic Exercise (30 minutes): -Nustep x8 minutes Level 3 -Seated exercises: -Alt marching 2x20 2.5# -LAQ 2x10 B 2.5# -Hip abd 2x10 GTB -Knee flexion 2x10 B GTB -Hip add ball squeeze 3 hold 2x10 -Sit to stand from mat table 2x10 holding ball -Standing exercises: done in parallel bars -Alt marching 2x20 -Hip extension 2x10 B -Hip abd 2x10 B -Heel raises 2x10 -Toe raises 2x10 -Mini squats 2x10 Neuromuscular Reeducation (10 minutes): -Walking on foam beam: -fwd x6 lengths -retro walking x6 lengths -sidestep x4 lengths B -Staggered stance 2x30 B -Step over/back small albert x10 fwd B Assessment: Patient verbalizes understanding of home exercise program? yes-continue with current program Comments: She was able to do less UE support with standing marching, heel raises and toe raises. She needed cues to slow down her movements. She had some quad fatigue with sit to stand from chair holding the ball. Plan: Continue skilled PT services Comment: Will do progress note next session and then reassess plan. Session Summary: Total timed: 40 minutes Total untimed: 0 minutes Total treatment time: 40 minutes documented in this encounter Plan of Treatment Upcoming Encounters Date Type Department Care Team (Latest Contact Info) Description 07/06/2025 4:00 PM CDT Appointment [facility] PHYSICAL THERAPY [address] [place] [address] [place] [address] Compa Guevara MD [address] [place] [address] Miranda Rose, PT [address] [place] [address] 07/20/2025 10:00 AM CDT Office Visit [facility] [address] [place] [address] [place] [address] Addi Matias, DPM [address] [place] [address] [place] [address] Discharge Disposition: Home, Self Care 07/22/2025 9:45 AM CDT Appointment [facility] PHYSICAL THERAPY [address] [place] [address] [place] [address] Compa Guevara MD [address] [place] [address] Miranda Rose, PT [address] [place] [address] 07/28/2025 9:30 AM INSURANCE AGENCY OWNER Office [place] [facility] [address] [place] [address] Compa Guevara MD [address] [place] [address] Discharge Disposition: Home, Self Care 07/28/2025 3:15 PM INSURANCE AGENCY OWNER Appointment [facility] PHYSICAL THERAPY [address] [place] [address] [place] [address] Compa Guevara MD [address] [place] [address] Miranda Rose, PT [address] [place] [address] 08/03/2025 9:15 AM INSURANCE AGENCY OWNER Appointment [facility] PHYSICAL THERAPY [address] [place] [address] [place] [address] Compa Guevara MD [address] [place] [address] Miranda Rose, PT [address] [place] [address] 2025 2:30 PM INSURANCE AGENCY OWNER Appointment [facility] PHYS[facility]APY [address] [place] [address] [place] [address] Copma Guevara MD [address] [place] [address] Miranda Rose, PT [address] [place] [address] 08/13/2025 9:00 AM INSURANCE AGENCY OWNER Appointment [facility] PHYSICAL THERAPY [address] [place] [address] [place] [address] Compa Guevara MD [address] [place] [address] Miranda Rose, PT [address] [place] [address] 10/18/2025 8:30 AM INSURANCE AGENCY OWNER Ancillary Procedure [facility] [place] [address] [place] [address] Discharge Disposition: Home, Self Care documented as of this encounter Goals Goal Patient Goal Type Associated Problems Recent Progress Patient-Stated? Author DIET - REDUCE SUGAR INTAKE Diet Not on track( 10:54 AM CDT) No Rain Castle APRN-CNP DIET - KEEP A DAILY FOOD DIARY Diet Yes Mariangel Virk, RN Note: 07/17/22 Use a food journal or [employer] It mariela to document all food eaten [...] 5 10:00 AM CDT) No Rain Castle, TERRA COTTA ROOFER HELPER-PLASTER MOLD MAKER documented as of this encounter Visit Diagnoses Not on filedocumented in this encounter Care Teams Microstrategy Bi Developer Relationship Specialty Start Date End Date Compa Guevara MD [address] [facility] [place] [address] PCP - General Internal Medicine 08/18/19 Compa Guevara MD [address] [facility], [place] [id number] PCP - Attributed Provider 03/17/21 Provider, No Attributed, RESOURCE [address] 08/13/16 Rain Castle, RN [address] [facility] [place], [place] [id number] Director BioinformaticsLedger Clerk Medicine 05/18/15 documented as of this encounter
--- OUTSIDE RECORDS SUMMARY | 2025-06-28 09:00 | XMS_ITS | Encounter Summary ---
Author Organization [facility] Address [address] [place] [address] [address] [place] [address] Care Team Providers Care Superintendent Custodian Janitor Name Role Phone Compa Guevara MD Primary Care Provider [phone] Provider, No Attributed RESOURCE Unavailable Unavailable Rain Castle RN Unavailable [phone] Compa Guevara MD Unavailable [phone] Reason for Visit * FCC PT (Routine) [...] PROC Compa Guevara MD [address] [place] [address] Phone: tel: fax: [facility] [address] [place] [address] Phone: tel: fax: Referral ID Status Reason Start Date Expiration Date Visits Requested Visits Authorized [id number] Authorized Continuity of Care 05/19/2025 09/22/2025 99 99 Encounter Details Date Type Department Care Team (Latest Contact Info) Description 06/28/2025 9:00 AM CDT - 06/28/2025 11:59 PM CDT Hospital Encounter [facility] [address] [facility] [place] [address] Compa Guevara MD [address] [place] [address] Miranda Rose, PT [address] [place] [address] Unsteadiness Discharge Disposition: Still a Patient Social [...] often do you attend chur ch or anabaptism services? Never 11/19/2023 Do you belong to any clubs o r organizations such as yazdanism groups, unions, fraternal or athletic groups, or [...] Answer Date Recorded PHQ-2 Total 3 04/20/2025 [facility] - [...] any time in the past 12 m [facility], were you homeless or [...] any time in the past 12 m [facility], were you homeless or living in a correction (including now)? No 04/20/2025 [facility] Utilities Answer Date Recorded In the past [...] DAILY (PLEASE CALL TO SCHEDULE FOLLOW UP [phone]) 90 tablet 3 5 DULoxetine (CYMBALTA) 60 [...] nasal sprayIndications:Pl ugged feeling in ear, right [place] 2 sprays into each nostril 1 time [...] Patient Name: Ace Domínguez : 1950 MR#: [id number] Referring Provider: Compa Guevara MD Therapy Session [...] SPC and no loss of balance MET Pig Iron Loader Goals: To be met within 12 weeks: [...] met 5/5 short term goals and 1/4 superintendent terminal goals. She has significantly improved her overall [...] Info) Description 07/06/2025 4:00 PM CDT Appointment [facility] [address] [place] [address] Compa Guevara MD [address] [place] [address] Miranda Rose PT [address] [place] [address] 07/20/2025 10:00 AM CDT Office Visit [facility] [address] [address] [place] [address] Addi Matias, DPM [address] [address] [place] [address] Discharge Disposition: Home, Self Care 07/22/2025 9:45 AM CDT Appointment [facility] [address] [address] [place] [address] Compa Guevara MD [address] [place] [address] Miranda Rose, PT [address] [place] [address] 07/28/2025 9:30 AM GROUP WORK PROGRAM DIRECTOR [facility] [address] [place] [address] Compa Guevara MD [address] [place] [address] Discharge Disposition: Home, Self Care 07/28/2025 3:15 PM GROUP WORK PROGRAM DIRECTOR Appointment [facility] [address] [address] [place] [address] Compa Guevara MD [address] [place] [address] Miranda Rose, PT [address] [place] [address] 08/03/2025 9:15 AM GROUP WORK PROGRAM DIRECTOR Appointment [facility] [address] [facility] [place] [address] Compa Guevara MD [address] [place] [address] Miranda Rose, PT [address] [place] [address] 2025 2:30 PM GROUP WORK PROGRAM DIRECTOR Appointment [facility] [address] [facility] [place] [address] Compa Guevara MD [address] [place] [address] Miranda Rose, PT [address] [place] [address] 08/13/2025 9:00 AM GROUP WORK PROGRAM DIRECTOR Appointment [facility] [address] [place] [address] Compa Guevara MD [address] [place] [address] Miranda Rose, PT [address] [place] [address] 10/18/2025 8:30 AM GROUP WORK PROGRAM DIRECTOR Ancillary Procedure [facility] [address] [place] [address] Discharge Disposition: Home, Self Care documented as of this encounter Goals Goal Patient Goal Type Associated Problems Recent Progress Patient-Stated? Author DIET - REDUCE SUGAR INTAKE Diet Not on track( 022 10:54 AM CDT) Rain Park, AJ-SUBSTITUTE TEACHER DIET - KEEP A DAILY FOOD DIARY Diet Yes Mariangel Virk, SENAIT Note: 07/17/22 Use a food journal or [employer] It mariela to document all food eaten [...] on filedocumented in this encounter Care Teams Superintendent Custodian Janitor Relationship Specialty Start Date End Date Compa Guevara MD [address] [place] [address] PCP - General Internal Medicine 08/18/19 Compa Guevara MD [address] [place] [address] PCP - Attributed Provider 03/17/21 Provider, No Attributed, RESOURCE [address] 08/13/16 Rain Castle, RN [address] [place] [facility] [place] [address] Digital Color Press OperatorType Inspector Medicine 05/18/15 documented as of this encounter
[2025-07-03 09:56] VITALS: BP 166/68; PULSE 80; RESP 18; TEMP 37.2; O2SAT 98; BMI 41.6
--- NOTE | 2025-07-03 11:03 | ED.GENADULT ---
HPI - General Adult General Date Seen: 07/03/25 Chief complaint: Dizziness/Vertigo Stated complaint: vertigo Time Seen by Provider: 07/03/25 11:01 History of Present Illness HPI narrative: 74-year-old female presenting to the ER today with concern for dizziness and vertigo. She has a history of vertigo in the past related to inflammation in her ear. She started having symptoms this morning at about 4:00 a.m.. She is also vomiting. Per her records from [facility] she has a history of hypertension, knee replacement, sleep apnea, depression . 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 Because of her left eye problems she wears a patch over her left eye so that her right eye will see better. She does have chronic trouble with balance and uses a cane. She is already working with her primary care provider and a physical therapist in her home city of [place], [place]. She recalls that she had an episode of vertigo identical to what she is experiencing today. It happened about 9 months ago, last August. She says she went to the ER in her home city of [place] and had an extensive workup and was found not to have a stroke. It sounds like her doctor was also suspecting that she might have had BPPV but hurt tests for crystals was negative (she describes having undergone Hartland-Hallpike maneuver). She was given meclizine and Zofran for supportive care and put on a 3 day course of steroids and her vertigo resolved. She has been doing well since then. She is in [place] visiting some family. She woke up at about 4:00 a.m. this morning and rolled over in bed to go to the bathroom and had onset of spinning vertigo. It is the same as what happened to her last August. She got very dizzy and had to lay back down and then moved to the foot of her bed. She tends to experience a lot of spinning dizziness and vertigo when she tries to move and it is better when she holds still. She is nauseous and has been dry heaving. She is not having a headache. No change in her chronic vision (she does not see much out of her left eye). No facial droop. No slurred speech. No numbness or weakness in her arms or legs. No headache. No fall. No other symptoms such as chest pain, shortness of breath, palpitations. No fever. She already took a meclizine that she had left over from last time but is not helping very much. She came here to the ER this morning desiring some nausea medication and some more steroids which were very effective for her with her last episode. Related Data Home Medications ?Medication ?Instructions ?Recorded ?Confirmed amlodipine 5 mg tablet 5 mg PO DAILY 07/03/25 07/03/25 bupropion HCl 100 mg tablet 100 mg PO TID 07/03/25 07/03/25 duloxetine 60 mg capsule,delayed 60 mg PO DAILY 07/03/25 07/03/25 release sprinkle (Drizal[place] Sprinkle) hydrochlorothiazide 25 mg tablet 25 mg PO DAILY 07/03/25 07/03/25 losartan 25 mg tablet (Cozaar) 25 mg PO DAILY 07/03/25 07/03/25 omeprazole 20 mg capsule,delayed 20 mg PO BID 07/03/25 07/03/25 release rosuvastatin 5 mg tablet 5 mg PO DAILY 07/03/25 07/03/25 Previous Rx's ?Medication ?Instructions ?Recorded meclizine 25 mg tablet 25 mg PO TID PRN vertigo #15 tabs 07/03/25 ondansetron HCl 4 mg tablet 4 mg PO Q8H PRN nausea and 07/03/25 vomiting #10 tabs prednisone 20 mg tablet 60 mg (3 x 20 mg) PO DAILY 3 days 07/03/25 #9 tabs Allergies Allergy/AdvReac Type Severity Reaction Status Date / Time paroxetine Allergy Unknown Verified 07/03/25 10:06 Sulfa (Sulfonamide Allergy Unknown Verified 07/03/25 10:06 Antibiotics) Exam Narrative: Exam Narrative: Constitutional: Appears well-developed and well-nourished. Alert. Conversant. Non toxic. HENT: Head: Atraumatic. Nose: Nose normal. Mouth/Throat: Oral mucosa is clear and moist. no trismus. Pharynx normal. Tonsils symmetric. No tonsillar enlargement, erythema, or exudate. Eyes: Wears a shade on her glasses over her left eye because of her vision loss there. Conjunctivae normal. EOM normal. No nystagmus Pupils equal, round, and reactive to light. No scleral icterus. Neck: Normal range of motion. Neck supple. No tracheal deviation present. No tenderness Cardiovascular: Normal rate, regular rhythm. No gallop. No friction rub. No murmur heard. Pulmonary/Chest: Effort normal. No stridor. No respiratory distress. No wheezes. No rales. No rhonchi .. Abdominal: Soft. No distension. No mass. No tenderness. No rebound. No guarding. Musculoskeletal: RUE: Normal range of motion. No tenderness. No deformity LUE: Normal range of motion. No tenderness. No deformity RLE: Normal range of motion. No edema. No tenderness. No deformity LLE: Normal range of motion. No edema. No tenderness. No deformity Neurological: Alert and oriented to person, place, and time. Normal strength. CN II-VII intact. No sensory deficit. GCS eye subscore is 4. GCS verbal subscore is 5. GCS motor subscore is 6. Normal coordination Mental status normal. Attention normal. Alert and oriented x3. GCS 15. Memory normal. Speech fluent. Cognition normal. Cranial Nerves intact II-XII except I did not formally test gag or visual acuity. EOMI. Palate elevates symmetrically and tongue protrudes in the midline. Strength: 5/5 trapezius on the right and left 5/5 deltoid on the right and left 5/5 biceps on the right and left 5/5 triceps on the right and left 5/5 end matcher on the right and left 5/5 thumb opposition on the right and left 5/5 finger abduction on the right and left 5/5 hip flexors (L3) on the right and left 5/5 quadriceps (L4) on the right and left 5/5 tibialis anterior on the right and left 5/5 EHL (L5) on the right and left 5/5 gastrocnemius (S1) on the right and left 5/5 hamstring on the right and left Sensation intact to light touch in both upper extremities (C4-T1) Sensation intact to light touch in Both lower extremities (L4-S1). Finger to nose and coordination normal. Her uses a cane to stand and this is her baseline. She has a beautiful hand carved wooden walking stick Skin: Skin is warm and dry. No rash noted. No pallor. Normal capillary refill. Psychiatric: Normal mood. Normal affect. Very polite. Const: Vital Signs, click to edit/add: Vital Signs - 24 hr 07/03/25 09:56 Temperature 98.9 F Pulse Rate [Right Pulse Oximeter] 80 Respiratory Rate 18 Blood Pressure [Ri ght Upper Arm] 166/68 H Pulse Oximetry 98 Oxygen Delivery Me thod Room Air Course Vital Signs Vital signs: Initial Vital Signs Temperature 98.9 F 07/03/25 09:56 Temperature Source Temporal Artery Scan 07/03/25 09:56 Pulse Rate 80 07/03/25 09:56 Pulse Rhythm Regular 07/03/25 09:56 Pulse Strength 3+ Normal 07/03/25 09:56 Respiratory Rate 18 07/03/25 09:56 Blood Pressure 166/68 H 07/03/25 09:56 Blood Pressure Mean 100 07/03/25 09:56 Blood Pressure Position Sitting 07/03/25 09:56 Pulse Oximetry 98 07/03/25 09:56 Oxygen Delivery Method Room Air 07/03/25 09:56 Vital Signs Temperature 98.9 F 07/03/25 09:56 Pulse Rate 80 07/03/25 09:56 Respiratory Rate 18 07/03/25 09:56 Blood Pressure 166/68 H 07/03/25 09:56 Pulse Oximetry 98 07/03/25 09:56 Oxygen Delivery Method Room Air 07/03/25 09:56 Temperature 98.9 F 07/03/25 09:56 Pulse Rate 80 07/03/25 09:56 Respiratory Rate 18 07/03/25 09:56 Blood Pressure 166/68 H 07/03/25 09:56 Pulse Oximetry 98 07/03/25 09:56 Oxygen Delivery Method Room Air 07/03/25 09:56 Medications Administered Medications: Discontinued Medications Generic Name Dose Route Start Last Admin Trade Name Freq PRN Reason Stop Dose Admin Ondansetron HCl 4 mg 07/03/25 11:20 07/03/25 11:25 Ondansetron Odt 4 Mg Tab PO 07/03/25 11:21 4 mg ONCE ONE Administration Prednisone 60 mg 07/03/25 11:20 07/03/25 11:27 Prednisone 20 Mg Tablet PO 07/03/25 11:21 60 mg ONCE ONE Administration Medical Decision Making [facility] Narrative Medical decision making narrative: This patient presents for evaluation of dizziness c/w vertigo. The differential diagnosis of vertigo is broad and includes common etiologies such as menieres disease, labyrinthitis, benign positional vertigo, otitis media, etc. More serious etiologies considered include central etiologies such as tumor, intracerebral bleed, dissection, ischemic cerebral vascular accident. The history, physical exam including detailed neurologic exam, and workup in the emergency room suggests a benign cause of vertigo today. Based on history and physical from the patient and similar to previous episode which self-resolved, the patient does not want workup for other causes such as neuro imaging for stroke. She just wants supportive care with medications. Based on history provided in absence of other neurologic findings such as diplopia, dysarthria, facial droop, or other focal deficits I think it is reasonable to treat supportively. I did give her a dose of Zofran and prednisone here in the ER. She had already taken meclizine. Further outpatient management is indicated with vertigo medications. We attempted to give her prescriptions through [facility] but the machine is malfunctioning due to and IT problem and therefore [facility] Vertigo precautions given for home. Would recommend, even if she gets better, but she follow-up with her primary at home in [place] and consider dizziness and balance evaluation through PT Discharge Plan Discharge Clinical Impression: Vertigo Patient Disposition: Home, Self-Care Condition: Stable Instructions: Vertigo (DC) Additional Instructions: As we discussed, we expect that your dizziness should get better over the next day or 2. Please return to the ER right away if you have any worsening symptoms such as headache, neck pain, slurred speech, uncontrolled vomiting, fever, numbness or weakness in your arm or leg, or worsening trouble walking. If you are not completely improved within 72 hours, please recheck with your ER or with your regular doctor. Even if you get better, when you get home to [place], please recheck with your regular doctor and consider a referral to physical therapy for dizziness and balance (specifically for vertigo) evaluation. Prescriptions: New meclizine 25 mg tablet 25 mg PO TID PRN (Reason: vertigo) Qty: 15 0RF ondansetron HCl 4 mg tablet 4 mg PO Q8H PRN (Reason: nausea and vomiting) Qty: 10 0RF prednisone 20 mg tablet 60 mg PO DAILY 3 Days Qty: 9 0RF Rx Instructions: days 11-21 of therapy No Action hydrochlorothiazide 25 mg tablet 25 mg PO DAILY bupropion HCl 100 mg tablet 100 mg PO TID Rx Instructions: administer 6 hours apart omeprazole 20 mg capsule,delayed release(DR/EC) 20 mg PO BID rosuvastatin 5 mg tablet 5 mg PO DAILY losartan [Cozaar] 25 mg tablet 25 mg PO DAILY amlodipine 5 mg tablet 5 mg PO DAILY Drizal[place] Sprinkle 60 mg capsule, delayed rel sprinkle 60 mg PO DAILY Stand Alone Forms: [facility] Info Instructions
[2025-07-03] MEDS: ONDANSETRON ODT 4 MG TAB PO (11:25)
--- OUTSIDE RECORDS SUMMARY | 2025-07-03 11:33 | XMS_ITS | Clinical Summary ---
Author Organization [facility] Address [address] [place] [address] [address] [place] [address] Care Team Providers Care Government Guard Name Role Phone Compa Guevara MD Primary Care Provider [phone] Provider, No Attributed RESOURCE Unavailable Unavailable Rain Castle RN Unavailable [phone] Compa Guevara MD Unavailable [phone] Allergies Active Allergy Reactions Criticality Noted Date Comments Ofloxacin Diarrhea,Dizziness 02/15/2015 Muscle pain Paroxetine Other (Specify in Comments) 12/03/2013 Caused low blood pressure. Simvastatin Other (Specify in Comments) 12/03/2013 Caused muscle pain. Sulfa Drugs Itching 12/03/2013 Medications acetaminophen (TYLENOL) 500 mg tablet Take 2 tablets (1,000 mg) by mouth Every 4 hours as needed for fever > (indicate temp) (100.00) Active Glucosamine-Chondr oit-Vit C-Mn (GLUCOSAMINE-CHOND ROITIN COMPLEX) capsule Take 2 capsules by mouth 1 time per day Active Probiotic Product (PROBIOTIC COLON SUPPORT) CAPS Take 1 capsule by mouth 1 time per day. Active Lutein-Zeaxanthin 20-0.8 MG CAPS Take 1 capsule by mouth 1 time per day. Active FIBER PO Take 2 gummy by mouth 1 time per day Active fluticasone (FLONASE) 50 mcg/spray nasal sprayIndications:P lugged feeling in ear, right [place] 2 sprays into each nostril 1 time per day 1 Bottle 13 01/17/20 17 Active Additional Information Patient taking differently: 1 sprayEach nostril DAILY, Reason: By Patient, Informant: Self, Reported on 04/28/2025 ELEMENTAL MAGNESIUM PO Take 1,000 mg by mouth 1 time per day Active vitamin D, cholecalciferol, 100 MCG (4000 UT) CAPS Take 1 capsule (4,000 Units) by mouth Take 2 tablets daily Active diphenhydrAMINE-ac etaminophen (TYLENOL PM) 25-500 mg tablet Take 2 tablets by mouth at bedtime as needed for insomnia Active QUERCETIN PO Take 500 mg by mouth 1 time per day 12/23/19 20 Active Multiple Vitamins-Minerals (ICAPS) TABS Take 1 tablet by mouth 1 time per day 30 tablet 06/13/20 20 Active OIL OF OREGANO PO 15 mL 1 time per day 07/19/20 21 Active Menaquinone-7 (VITAMIN K2 PO) 07/09/20 Active ubiquinol (COENZYME Q10) 100 MG CAPS capsule Take by mouth 1 time per day Active MISC NATURAL PRODUCTS PO Take 1 capsule by mouth 1 time per day [facility] Eye Floater Formula. Each dose contains: Zinc 5mg, Vitamin C 40mg, Grape Seed Extract 26.3mg, [place] Fruit Extract 100mg, L-lysine 125mg Active MISC NATURAL PRODUCTS PO Take by mouth Turmeric 1650 mg; Susan Extract 300 mg Active ibuprofen-diphenhy drAMINE (ADVIL PM) 200-38 mg tablet Take 1 tablet by mouth at bedtime as needed for insomnia (pain) Active melatonin 10 mg capsuleIndications :Insomnia, unspecified type Take 1 capsule (10 mg) by mouth every night at bedtime 30 capsule 10 12/19/19 24 Active hydroCHLOROthiazid e 25 mg tabletIndications: Essential hypertension Take 1 tablet (25 mg) by mouth 1 time per day 90 tablet 3 07/22/20 24 Active losartan 100 mg tabletIndications: Essential hypertension Take 1 tablet (100 mg) by mouth 1 time per day 90 tablet 3 07/22/20 24 Active esomeprazole (NEXIUM) 40 mg capsuleIndications :Gastroesophageal reflux disease without esophagitis Take 1 capsule (40 mg) by mouth 2 times a day 180 capsule 3 08/24/20 24 Active semaglutide (OZEMPIC, 0.25 OR 0.5 MG/DOSE,) 2 mg/3 mL subcutaneous injection solution (pen)Indications:C ontrolled type 2 diabetes mellitus without complication, without long-term current use of insulin (HCC) Inject 0.5 mg under the skin 1 time a week 9 mL 3 09/01/20 24 Active amLODIPine (NORVASC) 5 mg tabletIndications: Essential hypertension Take 1 tablet (5 mg) by mouth 1 time per day 90 tablet 3 09/21/20 24 Active rosuvastatin (CRESTOR) 5 mg tabletIndications: Mixed hyperlipidemia Take 1 tablet (5 mg) by mouth 1 time per day 90 tablet 3 04/16/20 25 Active buPROPion (WELLBUTRIN XL) 150 mg tablet (24 hr)Indications:Dys thymic disorder TAKE 3 TABLETS ONCE DAILY (PLEASE CALL TO SCHEDULE FOLLOW UP [phone]) 90 tablet 3 04/28/20 25 Active DULoxetine (CYMBALTA) 60 mg capsuleIndications :Dysthymic disorder,Fibromyal lindsay Take 1 capsule (60 mg) by mouth 1 time per day 90 capsule 3 04/28/20 25 Active Active Problems Problem Noted Date Diagnosed Date Gastroesophageal reflux disease without esophagi tis 08/05/2023 Obesity, morbid (more than 1 00 lbs over ideal weight or BMI > 40) 08/05/2023 Controlled type 2 diabetes m ellitus without complication, without long-term current use of insulin 07/17/2022 Chronic right maxillary sinusitis 07/23/2021 Fasting hyperglycemia 12/17/2018 Encounter for therapeutic drug monitoring 2016 Essential hypertension 06/18/2017 Mixed hyperlipidemia 06/18/2017 SARATH (obstructive sleep apnea) 06/18/2017 [facility] arthritis 02/26/2015 Wrist pain 02/26/2015 Depression 12/03/2013 Assessment & Plan (12/03/2016 10:49 AM CDT): Mood is ok but because has a colonoscopy tomorrow so is a little cranky today. Otherwise has been having days when she's a little blue but not out of the ordinary. Taking duloxetine and Abilify. Continue current therapy. Assessment & Plan (05/10/2016 9:50 AM CDT): Duloxetine and Abilify. Doesn't follow with psychiatry. Fibromyalgia 12/03/2013 Assessment & Plan (12/03/2016 10:50 AM CDT): Does seem to be aggravated by weather and her mood. Tends to be worse. Taking duloxetine and that helps, also takes Aleve. Continue current therapy. Assessment & Plan (08/31/2016 5:24 PM DIAMOND POLISHER): She is on duloxetine 30 mg daily. Pain is tolerable and for the most part she can function. Some days are better than others and she's worse if she overdoes things. She will continue her duloxetine. Assessment & Plan (05/10/2016 9:51 AM CDT): Duloxetine, exercise and weight management have helped her pain. Assessment & Plan (01/30/2016 2:31 PM CDT): She is on duloxetine 30 mg daily which also helps her depression. The weight loss and exercise also helps her feel better overall. Continue duloxetine. 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 Resolved Problems Problem Noted Date Diagnosed Date Resolved Date Controlled type 2 diabetes italia nino without complication, without long-term current use of insulin 01/21/2018 12/17/2018 CKD (chronic kidney disease) stage 3, GFR 30-59 ml/min 05/03/2015 06/18/2017 Assessment & Plan (05/10/2016 9:49 AM CDT): Last eGFR was 56 which has been her baseline for the past 2 years. She is on lasix. We discussed using NSAID's very judiciously. Prediabetes 02/07/2014 01/21/2018 Assessment & Plan (12/03/2016 10:32 AM CDT): She's been losing weight which has helped her blood sugars. She's been able to maintain her weight over the winter. Lab Results Component Value Date HGBA1C 5.8 11/28/2016 HGBA1C 5.7 08/06/2016 HGBA1C 5.7 05/04/2016 We stopped her metformin and her A1C remains well below 6.0. She continues to work on life style modification. Continue current efforts. Assessment & Plan (08/31/2016 5:18 PM DIAMOND POLISHER): She's been losing weight which has helped her blood sugars. Lab Results Component Value Date HGBA1C 5.7 08/06/2016 HGBA1C 5.7 05/04/2016 HGBA1C 5.8 01/23/2016 We stopped her metformin and her A1C remains well below 6.0. We discussed her increased risk of developing diabetes but she has worked hard on life style modification and weight loss. She is afraid of going backwards and gaining weight again. I encouraged her to just maintain her weight during the holidays and then she can start anew come September 23. Assessment & Plan (05/10/2016 9:54 AM CDT): Metformin once daily. Checks blood sugars daily. Has been doing extremely well with diet and exercise. Lab Results Component Value Date HGBA1C 5.7 05/04/2016 HGBA1C 5.8 01/23/2016 HGBA1C 6.1 10/27/2015 Wt Readings from Last 3 Encounters: 05/10/16 110 kg (242 lb 9.6 oz) 02/24/16 117.9 kg (260 lb) 01/30/16 120.6 kg (265 lb 14.4 oz) She continues to lose weight which helps her overall health. I think we can stop the metformin now. Assessment & Plan (01/30/2016 2:28 PM CDT): She is taking metformin 500 mg once daily with breakfast. Lab Results Component Value Date HGBA1C 5.8 01/23/2016 HGBA1C 6.1 10/27/2015 HGBA1C 5.9 04/27/2015 A1C has responded nicely. She hasn't had any low readings or symptoms. Wt Readings from Last 3 Encounters: 01/30/16 120.611 kg (265 lb 14.4 oz) 11/01/15 126.962 kg (279 lb 14.4 oz) 10/03/15 127.007 kg (280 lb) She has been losing weight which she's happy about. She is walking on her treadmill 4 days a week. She will continue the metformin and her lifestyle modification. Essential hypertension with goal blood pressure less than 130/80 12/03/2013 06/18/2017 Assessment & Plan (12/03/2016 10:58 AM CDT): Amlodipine, Coreg, losartan and lasix. BP Readings from Last 3 Encounters: 12/03/16 128/76 08/31/16 132/72 06/01/16 122/62 Goal blood pressures should be less than 140/90 and she is within goal. Denies chest pain or dizziness. She does get short of breath with heavy exertion. Continue current therapy. Assessment & Plan (08/31/2016 4:09 PM DIAMOND POLISHER): Reviewed in Snap[employer]ot. BP Readings from Last 3 Encounters: 08/31/16 132/72 06/01/16 122/62 05/10/16 134/68 Goal blood pressures should be less than 140/90 and she is within goal. Continue current therapy. Assessment & Plan (05/10/2016 9:59 AM CDT): Amlodipine, lasix and losartan. Has some mild ankle swelling periodically but has been better since she's been losing weight. BP Readings from Last 3 Encounters: 05/10/16 134/68 02/24/16 130/82 01/30/16 130/76 denies-chest pain or dizziness. Gets some shortness of breath with exercising after a while. Continue current therapy. Assessment & Plan (01/30/2016 12:58 PM CDT): Medications reviewed in Synopsis BP Readings from Last 3 Encounters: 11/01/15 132/80 05/03/15 128/72 02/21/15 128/82 She denies- Obesity (BMI 30-39.9) 12/03/20132019 Assessment & Plan (12/03/2016 10:30 AM CDT): She has been working to maintain her weight. Wt Readings from Last 3 Encounters: 11/06/16 109.3 kg (241 lb) 08/31/16 109.5 kg (241 lb 4.8 oz) 06/01/16 109.9 kg (242 lb 3.2 oz) Encounters Date Type Department Care Team Description 06/28/2025 9:00 AM CDT - 06/28/2025 11:59 PM CDT Hospital Encounter [facility] [address] [facility] [place] [address] Compa Guevara MD Crank, Sara, PT Unsteadiness Discharge Disposition: Still a Patient 06/25/2025 2:43 PM CDT - 06/25/2025 11:59 PM CDT Hospital Encounter [facility] [address] [place] [address] [place] [address] Compa Guevara MD Crank, Sara, PT Unsteadiness Discharge Disposition: Still a Patient 06/21/2025 Telephone 2 [facility] [address] [facility] [address] [place] [address] Yulisa Gibbs LPN 06/18/2025 10:30 AM CDT Office Visit 2 [facility] [address] [place] [address] [place] [address] Luis Duran DO SARATH on CPAP (Primary Dx) Discharge Disposition: Home, Self Care 06/15/2025 2:01 PM CDT - 06/15/2025 11:59 PM CDT Hospital Encounter [facility] [address] [place] [address] [place] [address] Compa Guevara MD Erickson, Conner, COMMERCIAL HOUSEKEEPER Unsteadiness Discharge Disposition: Still a Patient 06/08/2025 8:04 AM CDT - 06/08/2025 11:59 PM CDT Hospital Encounter [facility] [address] [place] [address] [place] [address] Compa Guevara MD Crank, Sara, PT Unsteadiness Discharge Disposition: Still a Patient 06/04/2025 8:17 AM CDT - 06/04/2025 11:59 PM CDT Hospital Encounter [facility] [address] [place] [address] [place] [address] Compa Guevara MD Crank, Sara, PT Unsteadiness Discharge Disposition: Still a Patient 06/02/2025 8:32 AM CDT - 06/02/2025 11:59 PM CDT Hospital Encounter [facility] [address] [place] [address] [place] [address] Compa Guevara, Miranda Dumont, PT Unsteadiness Discharge Disposition: Still a Patient 05/27/2025 8:57 AM CDT - 05/27/2025 11:59 PM CDT Hospital Encounter [facility] [address] [place] [address] [place] [address] Compa Guevara MD Crank, Sara, PT Unsteadiness Discharge Disposition: Still a Patient 05/21/2025 9:14 AM CDT - 05/21/2025 11:59 PM CDT Hospital Encounter [facility] [address] [place] [address] [place] [address] Compa Guevara MD Crank, Sara, PT Unsteadiness Discharge Disposition: Still a Patient 05/19/2025 8:52 AM CDT - 05/19/2025 11:59 PM CDT Hospital Encounter [facility] [address] [place] [address] [place] [address] Compa Guevara MD Crank, Sara, PT Unsteadiness Discharge Disposition: Still a Patient 04/28/2025 10:00 AM CDT Office Visit [facility] [facility] [address] [place] [address] Sari Domínguez, STRUCTURES TECHNICIAN-DAIRY FARM SUPERVISOR Dysthymic disorder (Primary Dx); Anxiety; Fibromyalgia Discharge Disposition: Home, Self Care 04/27/2025 1:30 PM CDT [facility] [address] [facility] [place] [id number] Compa Gueavra MD Unsteadiness (Primary Dx); Fall, initial encounter; Essential hypertension; Mixed hyperlipidemia; Controlled type 2 diabetes mellitus without complication, without long-term current use of insulin (HCC); Other depression Discharge Disposition: Home, Self Care 04/15/2025 Refill [facility] [address] [facility] [place] [address] Compa Guevara MD Refill Request from Last 3 Months Immunizations Immunization Administration Dates Next Due FLU VACCINE TRIVALENT SINGLE DOSE(Fluvirin,Afluria) 11/13/2011 FLU VACCINE HIGH DOSE 65YR+(Fluzone) 06/22/2019 INFLUENZA HIGH DOSE (FLUZONE ) 65 YEARS AND UP 07/17/2022,06/28/2021,08/01/2020 INFLUENZA MULTIDOSE 6 MONTHS AND UP 07/07/2014 INFLUENZA SINGLE DOSE 0.5ML 6 MONTHS AND UP 07/26/2017,08/03/2016,08/08/2015,07/24 Influenza High Dose Quadrivalent 07/17/2022,10/0 02/2021,08/01/2020 Influenza Vaccine 07/26/2017,06/17/2012,08/09/20 10 Influenza Vaccine,unspecified 07/24/2013 ,06/17/2012,11/13/2011,08/09 Pfizer COVID-19 Vaccine(Purp le Top) 12 Years and up 01/11/2021,12/16/2020 Pneumococcal Conj PCV13 06/19/2018 Pneumococcal Polysaccharide PPSV23 08/03/2024, TD,adsorbed, 7 years and up 09/06/2003 TDAP 08/05/2024,07/24/2013,10/14/2010 Trivalent Influenza High Dos e, Historical 06/22/2019 Zoster Live(Zostavax) 02/17/2015 Zoster Recombinant (Shingrix) 09/02/2019, 019 influenza split quadrivalent PF 07/26/2017,08/03,07/24/2013 Family History Medical History Relation Comments Heart Brother 3 Hyperlipidemia Brother 4 Obesity Brother 5 Arthritis Brother 6 Osteoarthritis Heart Disease Brother 6 Hypertension Brother 6 Not otherwise listed - Cancer Brother 7 le ukvasu, 1970 aged 25 Heart Father CHF Hypertension Father Breast Cancer Maternal Aunt 80 Diabetes Maternal Grandfather Dementia Mother Heart Mother Hyperlipidemia Mother Hypertension Mother Diabetes Paternal Aunt Diabetes Paternal Uncle Chronic Obstructive Pulmonar y Disease Sister 1 Hypertension Sister 1 Hypertension Sister 3 Chronic Obstructive Pulmonar y Disease Sister 4 Relation Status Comments Brother 1 (Age 26) leukemia Brother 2 Alive Brother 3 Brother 4 Brother 5 Brother 6 Brother 7 Father (Age 69) Maternal Aunt Maternal Grandfather Mother (Age 95) Paternal Aunt Paternal Uncle Sister 1 (Age 65) COPD Sister 2 Alive Sister 3 Sister 4 Social History Tobacco Use Types Packs/Day Years Used Date Smoking Tobacco: Former Cigarettes 2.5 21 0 02/27/1971 - 02/28/1992 Smokeless Tobacco: Never Tobacco Cessation:Counseling Given: Yes Comments:Average packs/day over 21 years is closer to 1.5 Alcohol [...] week 11/19/2023 How often do you attend [facility] or mormon services? Never 11/19/2023 Do you belong to any clubs o r organizations such as buddhism groups, unions, fraternal or athletic groups, or [...] Answer Date Recorded PHQ-2 Total 3 04/20/2025 [facility] - Occupational [...] in a correction (including now)? No 04/20/2025 [facility] Utilities Answer Date Recorded In [...] file Not on file Not on file Last Filed Vital Signs Vital Sign Reading Time Taken Comments Blood Pressure 164/72 06/18/2025 10:00 AM CDT Pulse 81 06/18/2025 10:00 AM CDT Temperature 36.7 C (98 F) 06/18/2025 10:00 AM CDT Respiratory Rate 18 04/28/2025 9:46 AM CDT Oxygen Saturation 92% 06/18/2025 10: 00 AM CDT Inhaled Oxygen Concentration - - Weight 115.6 kg (254 lb 12.8 oz) 2024 10:00 AM CDT Height 167.6 cm (5' 6) 08/03/2024 11:2 0 AM DIAMOND POLISHER Body Mass Index 41.13 08/03/2024 11:20 AM DIAMOND POLISHER Plan of Treatment Upcoming Encounters Date Type Department Care Team (Latest Contact Info) Description 07/06/2025 4:00 PM CDT Appointment [facility] [address] [place] [address] Compa Guevara MD [address] [facility] [place] [address] Miranda Rose, PT [address] [facility] [place] [address] 07/20/2025 10:00 AM CDT Office Visit [facility] [address] [place] [address] [facility] [place] [id number] Addi Matias, DPM [address] [place] [address] [facility] [place] [address] Discharge Disposition: Home, Self Care 07/22/2025 9:45 AM CDT Appointment [facility] [address] [place] [address] [facility] [place] [address] Compa Guevara MD [address] [place] [address] Miranda Rose, PT [address] [place] [address] 07/28/2025 9:30 AM DIAMOND POLISHER Office Visit [facility] [address] [place] [address] Compa Guevara MD [address] [place] [address] Discharge Disposition: Home, Self Care 07/28/2025 3:15 PM DIAMOND POLISHER Appointment [facility] [address] [place] [address] Compa Guevara MD [address] [place] [address] Miranda Rose, PT [address] [place] [address] 08/03/2025 9:15 AM DIAMOND POLISHER Appointment [facility] [address] [place] [address] Compa Guevara MD [address] [place] [address] Miranda Rose, PT [address] [place] [address] 2025 2:30 PM DIAMOND POLISHER Appointment [facility] [address] [place] [address] Compa Guevara MD [address] [place] [address] Miranda Rose, PT [address] [place] [address] 08/13/2025 9:00 AM DIAMOND POLISHER Appointment [facility] [address] [facility] [address] [place] [address] Compa Guevara MD [address] [place] [address] Miranda Rose, PT [address] [place] [address] 10/18/2025 8:30 AM DIAMOND POLISHER Ancillary Procedure [facility] [address] [place] [address] Discharge Disposition: Home, Self Care Health Maintenance Due Date Last Done Comments RSV Vaccine, Adult (1 - Risk 60-74 years 1-dose series) 2012 Covid-19 Vaccine ( season) 2025 01/11/2021, 12/16/2020 Influenza Vaccine (#1) 2025 , 07/17/2022, 06/28/2021, Additional history exists Lipid Screening 07/30/2025 07/30/2024, 06/24, 07/13/2022, Additional history exists Microalbumin 07/30/2025 07/30/2024, 06/24, 06/16/2018 Diabetic Foot Exam 08/03/2025 08/03/2024, 1 , 07/17/2022 Hemoglobin A1C Every 6 Months 08/20/2025 02/17/2025, 07/30/2024, 03/24/2024, Additional history exists Creatinine 08/28/2025 08/28/2024, 03/2024, 07/15/2023, Additional history exists WISDOM Study-Screening Mammogram Schedule 10/16/2025 10/16/2024, 09/02/2023, 07/23/2023, Additional history exists Glucose Value 02/17/2026 02/17/2025, 02/2024, 07/30/2024, Additional history exists Colonoscopy 12/04/2026 12/04/2016, 12/08/2014 ALT 08/28/2027 08/28/2024, 07/15/2023 AST 08/28/2027 08/28/2024, 06/24, 07/13/2022, Additional history exists Platelets 08/28/2027 08/28/2024, 02/2024, 07/15/2023, Additional history exists TDAP/TD VACCINE (4 - Td or Tdap) 08/05/2034 08/05/2024, 07/24/2013, 10/14/2010, Additional history exists DEXA/Heel Scan 06/20/2035 06/20/2020, 12/2017, 04/27/2015 Hepatitis C Screening Completed 01/30/2016 (Health Contraindicated) Zoster Vaccine Completed 09/02/2019, 12/2018, 02/17/2015 Pneumococcal Vaccine 50yr + Completed 07/24, 06/22/2019, 06/19/2018 Mammogram Discontinued 10/16/2024, 08/23, 07/23/2023, Additional history exists Hepatitis B Vaccine Aged Out No longe r eligible based on patient's age to complete this topic Ophthalmology Exam Discontinued Goals Goal Patient Goal Type Associated Problems Recent Progress Patient-Stated? Author DIET - REDUCE SUGAR INTAKE Diet Not on track( 022 10:54 AM CDT) No Rain Castle APRN-NICOLE DIET - KEEP A DAILY FOOD DIARY Diet Yes Mariangel Virk, SENAIT Note: 07/17/22 Use a food journal or [employer] It mariela to document all food eaten [...] Weight 115.6 kg (254 lb 12.8 oz)( 10:00 AM CDT) No Rain Castle APRN-CNP Medical Devices Implanted Type Area Regulator Assembler Device Identifier Shelf Expiration Date Model / Serial / Lot Stnt Universa Soft 5fr 26cm N [id number] - [id number] Implanted:Qty: 1 on 12/03/2017 by Nehemiah Madden MD at [facility] 08/30/2020 [id number] / / [id number] Procedures Procedure Name Priority Date/Time Associated Diagnosis Comments GLYCATED HEMOGLOBIN Routine 02/17/2025 8 :25 AM CDT Controlled type 2 diabetes mellitus without complication, without long-term current use of insulin (HCC) GLUCOSE Routine 02/17/2025 8:25 AM CDT Controlled type 2 diabetes mellitus without complication, without long-term current use of insulin (HCC) MAMMOGRAM BALJEET DIGITAL SCREENING AHBILASH Routine 10/16/2024 7:37 AM DIAMOND POLISHER Screening mammogram, encounter for LAB ONLY-COMPLETE BLOOD COUNT WITH DIFFERENTIAL Routine 08/28/2024 5:50 PM DIAMOND POLISHER Dizziness COMPREHENSIVE METABOLIC PANEL Routine 08/28/2024 5:50 PM DIAMOND POLISHER Dizziness ALBUMIN WITH ALBUMIN/CREATININE RATIO, RANDOM URINE Routine 07/30/2024 9:28 AM DIAMOND POLISHER Controlled type 2 diabetes mellitus without complication, without long-term current use of insulin (HCC) LIPID PANEL Routine 07/30/2024 8:22 AM DIAMOND POLISHER Mixed hyperlipidemia DEXA SCAN Routine 06/20/2020 2:27 PM CDT Post-menopausal from Last 3 Months or Most Recently Relevant to Health Maintenance Results * (ABNORMAL) GLYCATED HEMOGLOBIN (02/17/2025 8:25 AM CDT) Hgb A1C 5.8(H) <5.7 % 02/17/2025 8:58 AM CDT [facility] [address] Estimated Average Glucose 120 mg/dL 02/17/2025 8:58 AM CDT [facility] [address] Blood BLOOD SPECIMEN / Unknown Venipuncture / Unknown 02/17/2025 8:25 AM CDT 02/17/2025 8:28 AM CDT Narrative [facility] [address] - 02/17/2025 8:58 AM CDT ADA Interpretive Guidelines When Using HbA1c for Diagnosis Prediabetes 5.7 - 6.4% Diabetes >= 6.5% When monitoring a person known to have diabetes mellitus, A1C goals must be individualized, however an A1C of <7% is reasonable for most children, adolescents and non adults. ADA Standards of Medical Care in Diabetes - 2023 Compa Guevara MD LAB BLOOD Final Result [facility] [address] [place] [address] * (ABNORMAL) GLUCOSE (02/17/2025 8:25 AM CDT) Glucose 103(H) 70 - 99 mg/dL 02/17/2025 12:45 PM CDT [facility] Fasting Yes Yes, No, Unknown 02/17/2025 12:45 PM CDT [facility] Blood BLOOD SPECIMEN / Unknown 02/17/2025 8:25 AM CDT 02/17/2025 8:28 AM CDT Compa Guevara MD LAB BLOOD Final Result [facility] [address] [place] [address] * MAMMOGRAM BALJEET DIGITAL SCREENING ABHILASH (10/16/2024 7:37 AM DIAMOND POLISHER) Anatomical Region Laterality Modality Breast Bilateral Mammography 10/20/2024 8:40 AM DIAMOND POLISHER Narrative 10/20/2024 8:44 AM DIAMOND POLISHER EXAM: MAMMOGRAM BALJEET DIGITAL SCREENING ABHILASH INDICATION: Screening mammogram. COMPARISON(S): Comparison is made to previous exams. TECHNIQUE: Computer aided detection used. Interpretation was made with the benefit of tomosynthesis imaging. DENSITY: There are scattered areas of fibroglandular density. FINDINGS: No significant masses, calcifications, or other abnormalities seen. No significant change since prior exams. 2 biopsy clips in the left breast. ASSESSMENT: BI-RADS 2 - Benign RECOMMENDATION: Screening mammogram in one year. A letter will be sent to the patient indicating the mammography results in lay terminology. Finalized by: Dennis Pisano MD on 10/20/2024 8:44 AM DIAMOND POLISHER FDA Accredited Performing Facility: [address], [facility] [id number] Compa Guevara MD MAMMOGRAPHY Final Result * (ABNORMAL) COMPREHENSIVE METABOLIC PANEL (08/28/2024 5:50 PM DIAMOND POLISHER) Glucose 116(H) 70 - 99 mg/dL 08/28/2024 6:12 PM DIAMOND POLISHER [facility] BUN 20 6 - 22 mg/dL 08/28/2024 6:12 PM DIAMOND POLISHER [facility] Creatinine 0.90 0.55 - 1.02 mg/dL 08/28/2024 6:12 PM DIAMOND POLISHER [facility] BUN/Creatinine Ratio 22.2 10.0 - 25.0 08/28/2024 6:12 PM [facility] Sodium 145 136 - 145 meq/L 08/28/2024 6:12 PM [facility] Potassium 4.2 3.5 - 5.1 meq/L 08/28/2024 6:12 PM [facility] Chloride 107 98 - 109 meq/L 08/28/2024 6:12 PM [facility] CO2 25 20 - 29 meq/L 08/28/2024 6:12 PM [facility] Anion Gap with K 17 6 - 20 meq/L 08/28/2024 6:12 PM [facility] Calcium 10.2 8.5 - 10.5 mg/dL 08/28/2024 6:12 PM [facility] Protein Total 7.7 6.0 - 8.3 g/dL 08/28/2024 6:12 PM [facility] Albumin 4.3 3.2 - 4.6 g/dL 08/28/2024 6:12 PM [facility] Alkaline Phosphatase 94 40 - 150 U/L 08/28/2024 6:12 PM [facility] AST - SGOT 29 <6 - 45 U/L 08/28/2024 6:12 PM [facility] ALT - SGPT 19 <6 - 55 U/L 08/28/2024 6:12 PM [facility] Bilirubin Total 0.2 0.2 - 1.2 mg/dL 08/28/2024 6:12 PM [facility] Age 74 Years 08/28/2024 6:12 PM [facility] eGFRcr() 68 >=60 mL/min/1.73 m2 08/28/2024 6:12 PM [facility] Fasting Yes Yes, No, Unknown 08/28/2024 6:12 PM [facility] Blood BLOOD SPECIMEN / Unknown 08/28/2024 5:50 PM DIAMOND POLISHER 08/28/2024 5:52 PM DIAMOND POLISHER Lorena KOO LAB BLOOD Final Result [facility] [address] [place] [address] * ALBUMIN WITH ALBUMIN/CREATININE RATIO, RANDOM URINE (07/30/2024 9:28 AM DIAMOND POLISHER) Creatinine Urine 116.72 No Reference Range Established mg/dL 07/30/2024 1:26 PM [facility] Albumin mg/L 18.26 No Reference Range Established mg/L 07/30/2024 1:26 PM [facility] Albumin/Creati nine Ratio 16 <30 mg/g 07/30/2024 1:26 PM [facility] Urine VOIDED URINE SPECIMEN / Unknown Collection / Unknown 07/30/2024 9:28 AM DIAMOND POLISHER 07/30/2024 9:28 AM DIAMOND POLISHER Compa Guevara MD LAB NON BLOOD Final Result Performing Organization Address [facility] Co de Phone Number [facility] [address] [place] [phone] * LIPID PANEL (07/30/2024 8:22 AM DIAMOND POLISHER) Cholesterol 168 <200 mg/dL 07/30/2024 1:16 PM [facility] Triglyceride 137 <150 mg/dL 07/30/2024 1:16 PM [facility] HDL 70 >=40 mg/dL 07/30/2024 1:16 PM [facility] LDL 71 <=100 mg/dL 07/30/2024 1:16 PM [facility] Fasting Yes Yes, No, Unknown 07/30/2024 1:16 PM [facility] Blood BLOOD SPECIMEN / Unknown Venipuncture / Unknown 07/30/2024 8:22 AM DIAMOND POLISHER 07/30/2024 8:23 AM DIAMOND POLISHER Compa Guevara MD LAB BLOOD Final Result Performing Organization Address [facility]/ZIP Co de Phone Number [facility] [address] [place] [address] * DEXA SCAN (06/20/2020 2:27 PM CDT) Anatomical Region Laterality Modality Spine Diaphanography Narrative 06/21/2020 11:50 AM CDT [facility] DEXA Report [address], [address] [place] [address] Name: Ace Domínguez : 1950 AGE: [id number] year old To: Compa Guevara [address] [place] [address] ORDERING PHYSICIAN: Compa Guevara ORDERING PHYSICIAN FAX: [phone] ORDER ID: [id number] DEXA SCAN 06/20/2020 1427 Order Dx: Post-Menopausal Technologist: MACK CSN: [id number] ZAYRA: [id number] PATIENT HISTORY: Risk Factors: Female, or heritage, Post-menopausal, Follow up exam Current Treatment: Supplemental Calcium, Vitamin D COMPARISON: 06/26/2018 TECHNIQUE: A bone density measurement was done on the above patient to evaluate bone loss. Dual energy X-Ray absorptiometric was used to determine the bone mineral density of the AP spine and hip using a Hologic dual energy X-Ray bone densitometer. FINDINGS: BMD BMD Previous BMD % Change T-score T-Score Previous Z-Score AP Spine 1.217 1.251 -2.7% 1.5 1.9 3.5 Right Hip 0.962 1.043 -7.8% 0.2 0.8 1.5 Right Femoral Neck 0.775 0.806 N/A -0.7 -0.4 1.0 Left Hip 0.997 1.109 -10.1% 0.4 1.4 1.8 Left Femoral Neck 0.794 0.823 N/A -0.5 -0.2 1.2 # This symbol denotes no statistically significant interval change IMPRESSION: Lumbar Spine WHO Classification is: Normal bone mass Right Hip WHO Classification is: Normal bone mass Right Femoral Neck WHO Classification is:Normal bone mass Left Hip WHO Classification is: Normal bone mass Left Femoral Neck WHO Classification is:Normal bone mass Indications for VFA not met. FRAX not reported due to T scores at or above -1.0. COMMENTS: A more comprehensive DEXA report, including images and graphs, is available electronically. T-score represents a standard deviation above or below the young-normal reference. Z-score represents a standard deviation above or below average for the age-matched reference for all females/males in the patient's ethnic group. In the absence of other causes of low BMD or demonstrated skeletal fragility, osteoporosis may be diagnosed in post-menopausal women and men age 50 and older when the T-score is at or below - 2.5 per WHO (World Health Organization). Osteopenia is present at T-scores between -1 and -2.5 and normal BMD is defined by a T-score at or above -1.0. The diagnosis of osteoporosis in pre-menopausal women and in men can be based on low bone mass or evidence of skeletal fragility. A valid clinical diagnosis of osteoporosis can be made on clinical grounds in the setting of fragility fracture even when DEXA criteria for osteoporosis are absent. Compa Guevara MD MAMMOGRAPHY Final Result from Last 3 Months or Most Recently Relevant to Health Maintenance Advance Directives For more information, please contact: [phone] Documents on File Type Date Recorded Patient Radio Mechanic Expl anation Advance Directives and Living Will 12/23/2018 * Full Code (Latest Code Status on File) Date Activated Date Inactivated Comments 07/24/2021 6:14 AM 07/24/2021 5:57 PM * Full Code Date Activated Date Inactivated Comments 02/11/2020 7:44 AM 02/11/2020 10:08 AM * Full Code Date Activated Date Inactivated Comments 12/03/2017 10:05 AM 12/03/2017 8:57 PM * Full Code Date Activated Date Inactivated Comments 12/03/2016 7:45 AM 12/04/2016 6:46 PM * Full Code Date Activated Date Inactivated Comments 12/06/2014 11:57 AM 12/08/2014 4:43 PM Care Teams Government Guard Relationship Specialty Start Date End Date Comap Guevara MD [address] [place] [address] PCP - General Internal Medicine 08/18/19 Compa Guevara MD [address] [facility] [place] [address] PCP - Attributed Provider 03/17/21 Provider, No Attributed, RESOURCE [address] 08/13/16 Rain Castel, RN [address] [place] [address] Pancake ProfessionalShag Truck Driver Medicine 05/18/15
--- OUTSIDE RECORDS SUMMARY | 2025-07-03 11:33 | XMS_ITS | Encounter Summary ---
Author Organization [facility] HERMEL DELOR [facility] Address [address] [place] [address] [address] [place] [address] Care Team Providers Care Kier Tender Name Role Phone Compa Guevara MD Primary Care Provider Provider, No Attributed RESOURCE Unavailable Unavailable Rain Castle RN Unavailable Compa Guevara MD Unavailable [phone] Encounter Details Date Type Department Care Team (Late st Contact Info) Description 06/21/2025 Telephone [facility] [address] [place] [address] Yulisa iGbbs LPN [address] [place] [address] Social History Tobacco Use Types Packs/Day Years [...] How often do you attend chur or christian services? Never 11/19/2023 Do you belong to any clubs o r organizations such as hoahaoism groups, unions, fraternal or athletic groups, or [...] Answer Date Recorded PHQ-2 Total 3 04/20/2025 [facility] - Occupational Stress [...] in the past 12 m [facility], were you homeless or living in a group home (including now)? No 04/20/2025 [facility] Utilities Answer Date Recorded In the [...] 02/11/2020 7:57 AM CDT Elton Fabian RN documented as of this encounter Mental Status * Because of a physical, mental, or emotional condition; does this person have serious difficulty concentrating, remembering, or making decisions? Answer Entry Date Author No 02/11/2020 7:57 AM IMANT Elton Fabian RN documented in this encounter Nursing Notes * Yulisa Gibbs LPN - 06/21/2025 9:30 AM CDT Images from the original note were not included. Updated orders sent to [facility]. Luis Duran DO P Pulmonary [facility] Please send prescription for CPAP supplies on current settings to her preferred DME provider. Thankyou documented in this encounter Plan of Treatment Upcoming Encounters Date Type Department Care Team (Latest Contact Info) Description 07/06/2025 4:00 PM CDT Appointment [facility] [address] [place] [address] [place] [address] Compa Guevara MD [address] [facility] [place] [address] Miranda Rose, PT [address] [facility] [place] [address] 07/20/2025 10:00 AM CDT Office Visit [facility] [address] [place] [address] [place] [address] Addi Matias, DPM [address] [place] [address] [place] [address] Discharge Disposition: Home, Self Care 07/22/2025 9:45 AM CDT Appointment [facility] [address] [place] [address] [place] [address] Compa Guevara MD [address] [facility] [place] [address] Miranda Rose, PT [address] [facility] [place] [address] 07/28/2025 9:30 AM COOK RELIEF Office Visit [facility] [address] [place] [address] Compa Guevara MD [address] [place] [address] Discharge Disposition: Home, Self Care 07/28/2025 3:15 PM COOK RELIEF Appointment [facility] [address] [place] [address] Compa Guevara MD [address] [place] [address] Miranda Rose, PT [address] [place] [address] 08/03/2025 9:15 AM COOK RELIEF Appointment [facility] [address] [place] [address] Compa Guevara MD [address] [place] [address] Miranda Rose, PT [address] [place] [address] 2025 2:30 PM COOK RELIEF Appointment [facility] [address] [place] [address] Compa Guevara MD [address] [place] [address] Miranda Rose, PT [address] [place] [address] 08/13/2025 9:00 AM COOK RELIEF Appointment [facility] [address] [place] [address] Compa Guevara MD [address] [facility] [place] [address] Rose Miranda, PT [address] [facility] [place] [address] 10/18/2025 8:30 AM COOK RELIEF Ancillary Procedure [facility] [address] [place] [address] Discharge Disposition: Home, Self Care documented as of this encounter Goals Goal Patient Goal Type Associated Problems Recent Progress Patient-Stated? Author DIET - REDUCE SUGAR INTAKE Diet Not on track( 10:54 AM CDT) No Rain Castle APRN-CNP DIET - KEEP A DAILY FOOD DIARY Diet Yes Mariangel Virk, RN Note: 07/17/22 Use a food journal or [email or web address] It mariela to document all food eaten [...] (pediatric) documented in this encounter Care Teams Kier Tender Relationship Specialty Start Date End Date Compa Guevara MD [address] [facility] [place], [place] [id number] PCP - General Internal Medicine 08/18/19 Compa Guevara MD [address] [facility] [place] [place] [id number] PCP - Attributed Provider 03/17/21 Provider, No Attributed, RESOURCE [address] 08/13/16 Rain Castle, RN [address] [facility], [place] [id number] Electrician WiringData Collection Specialist Medicine 05/18/15 documented as of this encounter
== END 2025-07-03 11:45 | disposition home or self-care (01) ==
PROVIDERS: Emergency Provider Emergency Medicine
DX: R42 Dizziness and giddiness (principal)
CPT/HCPCS: 99282; 99283; A9270; J7512

== ENCOUNTER 2025-07-03 23:22 | Outpatient (CLI) | payer MEDICARE, OTHER, SELFPAY | END 2025-07-03 23:23 | disposition home or self-care (01) | LOC: AMB 07-07 12:40 | PROVIDERS: Visit Provider Family Medicine | DX: R42 Dizziness and giddiness (principal) | CPT/HCPCS: A0425; A0429 ==

== ENCOUNTER 2025-07-03 23:57 | Emergency (ER) | payer MEDICARE, OTHER, SELFPAY ==
--- OUTSIDE RECORDS SUMMARY | 2021-02-22 09:30 | XMS_ITS | Continuity of Care Document ---
Author Organization [facility] Address [address] [place] [address] Phone Care Team Providers Care [place]rick [place] Hand Name Role Phone Silvino PT, DPT, Compa Unavailable Unavailab le Procedures Procedure Date Therapeutic Activities Therapeutic Activities Manual Therapy PT Evaluation Moderate Complexity Advance Directives Directive Yes / No Effective Date File Name No Information Encounters Encounter Description Practice Location Reason(s) For Visit Diagnoses Date Provider Providers Copied on Encounter [facility], [address], [place], [place], [id number], tel:[phone] Brittani Oscar [facility] No Information Silvino Segovia Referring Provider: Samuel Mclain, [address] [place] [address], [id number]. tel:[phone] [address], [place], [place], [id number], tel:[phone] [facility] No Information Silvino Segovia Family History Family Member Type Diagnosis Age At Onset No Information Payers Payer name Insurance type Covered republican ID Authorjanell kolb(s) Medicare [place] [id number] [employer] [facility] CI [id number] Social History Type Description Quantity Date Captured [...]
--- OUTSIDE RECORDS SUMMARY | 2021-02-22 09:30 | XMS_ITS | Continuity of Care Document ---
Author Organization [facility] Address [address] [place] [address] Phone Care Team Providers Care Animal Care Assistant Name Role Phone Silvino PT, DPT, Compa Unavailable Unavailab le Procedures Procedure Date Therapeutic Activities Therapeutic Activities Manual Therapy PT Evaluation Moderate Complexity Advance Directives Directive Yes / No Effective Date File Name No Information Encounters Encounter Description Practice Location Reason(s) For Visit Diagnoses Date Provider Providers Copied on Encounter [facility], [address], [place], [place], [id number], tel:[phone] [place] [facility] [place] Information Silvino Segovia Referring Provider: Samuel Mclain, [address] [place] [address], [address]. tel:[phone] [address] [address], [place], [place], [id number], tel:[phone] [facility] [place] Information Silvino Segovia Family History Family Member Type Diagnosis Age At Onset No Information Payers Payer name Insurance type Covered alliance party ID Authorjanell kolb(s) Medicare [place] [id number] [employer] [facility] CI [id number] Social History Type Description Quantity Date Captured [...]
--- OUTSIDE RECORDS SUMMARY | 2025-05-19 08:52 | XMS_ITS | Encounter Summary ---
Author Organization [facility] [employer] [facility] Address [address] [address] [place] [address] Care Team Providers Care Grip Name Role Phone Compa Guevara MD Primary Care Provider [phone] Provider, No Attributed RESOURCE Unavailable Unavailable Rain Castle RN Unavailable [phone] Compa Guevara MD Unavailable [phone] Reason for Visit * FCC PT (Routine) - Authorized Specialty Diagnoses / Procedures Referred By Contac t Referred To Contact Physical Therapy Diagnoses Unsteadiness Procedures PT EVAL MOD COMPLEX 30 MIN THERAPEUTIC PROC 1+ AREAS EACH 15 MIN THERAPEUTIC EXERCISES THERAPEUTIC PROC 1+ AREAS EACH 15 MIN NEUROMUSCULAR REEDUCATION THERAPEUTIC PROC 1+ AREAS EA 15 MIN GAIT TRAINING(WSTAIR CLIMBING) MANUAL THERAPY TECHNIQUES 1+ REGIONS EACH 15 MIN THERAPEUTIC ACTVITIES DIRECT PATIENT CONTACT EACH 15 MIN CANALITH REPOSITIONING PROC Compa Guevara MD [address] [place] [address] Phone: tel: fax: [facility] [address] [place] [address] Phone: tel: fax: Referral ID Status Reason Start Date Expiration Date Visits Requested Visits Authorized [id number] Authorized Continuity of Care 05/19/2025 09/22/2025 99 99 Encounter Details Date Type Department Care Team (Latest Contact Info) Description 05/19/2025 8:52 AM CDT - 05/19/2025 11:59 PM CDT Hospital Encounter [facility] PHYSICAL THERAPY [address] [facility] [address] [place] [address] Compa Guevara MD [address] [place] [address] Miranda Rose, PT [address] [place] [address] Unsteadiness Discharge Disposition: Still a Patient Social History Tobacco Use Types Packs/Day Years Used Date Smoking Tobacco: Former Cigarettes 2.5 21 0 02/27/1971 - 02/28/1992 Smokeless Tobacco: Never Comments:Average packs/day o shauna 21 years is closer to 1.5 Alcohol Use Standard Drinks/Week Comments Not Currently 2 (1 standard drink = 0.6 oz pur e alcohol) 1-2 a year Humiliation, Afraid, Rape, and Kick questionnair e Answer Date Recorded Within the last year, have y ou been afraid of your partner or ex-partner? No 12/20/2021 Within the last year, have y ou been humiliated or emotionally abused in other ways by your partner or ex-partner? No Within the last year, have y ou been kicked, hit, slapped, or otherwise physically hurt by your partner or ex-partner? No 12/20/2021 Within the last year, have y ou been raped or forced to have any kind of sexual activity by your partner or ex-partner? No 12/20/2021 Social Connection and Isolation Panel Answer Date Recorded In a typical week, how many times do you talk on the phone with family, friends, or neighbors? Twice a week 11/19/2023 How often do you get togethe r with friends or relatives? Three times a week 11/19/2023 How often do you attend chur ch or quaker services? Never 11/19/2023 Do you belong to any clubs o r organizations such as shinto groups, unions, fraternal or athletic groups, or school groups? No 11/19/2023 How often do you attend meet ings of the clubs or organizations you belong to? Never 11/19/2023 Are you , , di vorced, , never , or living with a partner? 11/19/2023 AUDIT-C Answer Date Recorded Q1: How often do you have a drink containing alcohol? Never 11/19/2023 Q2: How many drinks containi ng alcohol do you have on a typical day when you are drinking? Patient does not drink Q3: How often do you have si x or more drinks on one occasion? Never 11/19/2023 Overall Financial Resource Strain (CARDIA) Answe r Date Recorded How hard is it for you to pa y for the very basics like food, housing, medical care, and heating? Not hard at all 11/19/2023 PHQ-2 Answer Date Recorded PHQ-2 Total 3 04/20/2025 [facility] - Occupational Stress Questionnaire Answer Date Recorded Do you feel stress - tense, restless, nervous, or anxious, or unable to sleep at night because your mind is troubled all the time - these days? Rather much 11/19/2023 Exercise Vital Sign Answer Date Recorde d On average, how many days pe r week do you engage in moderate to strenuous exercise (like a brisk walk)? 0 days 11/19/2023 On average, how many minutes do you engage in exercise at this level? 0 min 11/19/2023 Housing Stability Vital Sign Answer Henrik e Recorded In the last 12 months, was t here a time when you were not able to pay the mortgage or rent on time? No 11/19/2023 In the last 12 months, how many places have you lived? 1 11/19/2023 In the last 12 months, was t here a time when you did not have a steady place to sleep or slept in a residential (including now)? No 11/19/2023 Housing Stability Vital Sign Answer Henrik e Recorded In the last 12 months, was t here a time when you were not able to pay the mortgage or rent on time? No 09/02/2024 In the past 12 months, how m any times have you moved where you were living? 0 09/02/2024 At any time in the past 12 m [facility], were you homeless or living in a residential (including now)? No 09/02/2024 Hunger Vital Sign Answer Date Recorded Within the past 12 months, y ou worried that your food would run out before you got the money to buy more. Never true 04/20/20 25 Within the past 12 months, t he food you bought just didn't last and you didn't have money to get more. Never true 04/20/2025 PRAPARE - Transportation Answer Date Re corded In the past 12 months, has l ack of transportation kept you from medical appointments or from getting medications? No 03/24 In the past 12 months, has l ack of transportation kept you from meetings, work, or from getting things needed for daily living? No 04/20/2025 Housing Stability Vital Sign Answer Henrik e Recorded In the last 12 months, was t here a time when you were not able to pay the mortgage or rent on time? No 04/20/2025 In the past 12 months, how m any times have you moved where you were living? 0 04/20/2025 At any time in the past 12 m [facility], were you homeless or living in a residential (including now)? No 04/20/2025 [facility] Utilities Answer Date Recorded In the past 12 months has th e electric, gas, oil, or water company threatened to shut off services in your home? No 04/20/2025 Abuse/Neglect Answer Date Recorded Do you have current concerns about any past or present abuse and neglect? No 04/28/2025 Does the patient display any signs or symptoms of abuse or neglect? No 04/28/2025 Education Answer Date Recorded What is the highest level of school you have completed or the highest degree you have received? Associate degree: occupational, technical, or vocational program 12/14/2019 Sexually Active Control Partners Comments Not Currently Post-menopausal Male Comments No Sex and Gender Information Value Date Recorded Sex Assigned at Female 12/28/2019 9:21 AM CDT Legal Sex Female 4:53 AM CDT Gender Identity Female 12/28/2019 9:21 AM CDT Sexual Orientation Straight 12/28/2019 9: 21 AM CDT Occupation Industry Job Start Date Job End Date Retired Not on file Not on file Not on file documented as of this encounter Functional Status * Is the person deaf or does he/she have serious difficulty hearing? Answer Date of Assessment Author No 02/04/2020 4:08 PM CDT Shelia Navas RN * Is this person blind or does he/she have difficulty seeing even when wearing glasses? Answer Date of Assessment Author No 02/04/2020 4:08 PM CDT Shelia Navas, SENAIT * Do you have difficulty with walking, balance, climbing stairs, or had a fall in the last 3 months? Answer Date of Assessment Author Yes 04/30/2024 8:09 PM CDT Kori Colón RN * Does the patient have difficulty dressing or bathing? Answer Date of Assessment Author No 02/11/2020 7:57 AM CDT Elton Fabian RN * Because of a physical, mental, or emotional condition; does this person have difficulty doing errands alone such as visiting a doctor's office or shopping? Answer Date of Assessment Author No 02/11/2020 7:57 AM Elton Bashir RN documented as of this encounter Mental Status * Because of a physical, mental, or emotional condition; does this person have serious difficulty concentrating, remembering, or making decisions? Answer Entry Date Author No 02/11/2020 7:57 AM Elton Bashir RN documented in this encounter Medications at Time of Discharge buPROPion (WELLBUTRIN XL) 150 mg tablet (24 hr)Indications:Dyst hymic disorder TAKE 3 TABLETS ONCE DAILY (PLEASE CALL TO SCHEDULE FOLLOW UP [phone]) 90 tablet 3 5 DULoxetine (CYMBALTA) 60 mg capsuleIndications: Dysthymic disorder,Fibromyalg ia Take 1 capsule (60 mg) by mouth 1 time per day 90 capsule 3 5 rosuvastatin (CRESTOR) 5 mg tabletIndications:M ixed hyperlipidemia Take 1 tablet (5 mg) by mouth 1 time per day 90 tablet 3 5 amLODIPine (NORVASC) 5 mg tabletIndications:E ssential hypertension Take 1 tablet (5 mg) by mouth 1 time per day 90 tablet 3 4 semaglutide (OZEMPIC, 0.25 OR 0.5 MG/DOSE,) 2 mg/3 mL subcutaneous injection solution (pen)Indications:Co ntrolled type 2 diabetes mellitus without complication, without long-term current use of insulin (HCC) Inject 0.5 mg under the skin 1 time a week 9 mL 3 4 esomeprazole (NEXIUM) 40 mg capsuleIndications: Gastroesophageal reflux disease without esophagitis Take 1 capsule (40 mg) by mouth 2 times a day 180 capsule 3 4 hydroCHLOROthiazide 25 mg tabletIndications:E ssential hypertension Take 1 tablet (25 mg) by mouth 1 time per day 90 tablet 3 4 losartan 100 mg tabletIndications:E ssential hypertension Take 1 tablet (100 mg) by mouth 1 time per day 90 tablet 3 4 melatonin 10 mg capsuleIndications: Insomnia, unspecified type Take 1 capsule (10 mg) by mouth every night at bedtime 30 capsule 10 4 ibuprofen-diphenhyd rAMINE (ADVIL PM) 200-38 mg tablet Take 1 tablet by mouth at bedtime as needed for insomnia (pain) MISC NATURAL PRODUCTS PO Take by mouth Turmeric 1650 mg; Susan Extract 300 mg ubiquinol (COENZYME Q10) 100 MG CAPS capsule Take by mouth 1 time per day MISC NATURAL PRODUCTS PO Take 1 capsule by mouth 1 time per day Vit[employer] Eye Floater Formula. Each dose contains: Zinc 5mg, Vitamin C 40mg, Grape Seed Extract 26.3mg, Arapahoe Fruit Extract 100mg, L-lysine 125mg OIL OF OREGANO PO 15 mL 1 time per day 1 Menaquinone-7 (VITAMIN K2 PO) 1 Multiple Vitamins-Minerals (ICAPS) TABS Take 1 tablet by mouth 1 time per day 30 tablet 0 QUERCETIN PO Take 500 mg by mouth 1 time per day 0 diphenhydrAMINE-janny taminophen (TYLENOL PM) 25-500 mg tablet Take 2 tablets by mouth at bedtime as needed for insomnia vitamin D, cholecalciferol, 100 MCG (4000 UT) CAPS Take 1 capsule (4,000 Units) by mouth Take 2 tablets daily ELEMENTAL MAGNESIUM PO Take 1,000 mg by mouth 1 time per day fluticasone (FLONASE) 50 mcg/spray nasal sprayIndications:Pl ugged feeling in ear, right Aspen 2 sprays into each nostril 1 time per day 1 Bottle 13 7 FIBER PO Take 2 gummy by mouth 1 time per day acetaminophen (TYLENOL) 500 mg tablet Take 2 tablets (1,000 mg) by mouth Every 4 hours as needed for fever > (indicate temp) (100.00) Glucosamine-Chondro it-Vit C-Mn (GLUCOSAMINE-CHONDR OITIN COMPLEX) capsule Take 2 capsules by mouth 1 time per day Probiotic Product (PROBIOTIC COLON SUPPORT) CAPS Take 1 capsule by mouth 1 time per day. Lutein-Zeaxanthin 20-0.8 MG CAPS Take 1 capsule by mouth 1 time per day. documented as of this encounter Progress Notes * GalenMiranda carlos, PT - 05/19/2025 10:17 AM CDT Patient Name: Ace Domínguez : 1950 [facility]#: [id number] MR#: [id number] ZAYRA: [id number] Referring Provider: No ref. provider found Reason for Therapy Treatment Date of Evaluation/SOC: 05/19/25 Onset Date: 04/27/25 (order date) Clinical Diagnosis: Unsteadiness Certification: 05/19/25 through 08/11/25 Therapy Diagnosis: decreased functional strength, decreased balance, decreased endurance Subjective Assessment Reason for therapy: Instability and Weakness History of present problem: Patient is a 74yr female referred to OP physical therapy by Compa Guevara MD for evaluation and treatment of decreased balance, decreased strength and endurance. Patient reports that she started to notice her unsteadiness about 6 months ago. During that time she wasalso diagnosed with vertigo and had treatment for her vertigo. The vertigo cleared, but she continued to feel unsteady when walking. She started using a cane and feels like that helps with her balance and gait. She states that she has had some falls. One happened 3 weeks ago when she was sitting henrry chair with wheels and leaned too far forward when bending forward and fell off the chair. She hada near fall last week when she dropped her cane outside and stumbled and caught herself on a fence so she didn't fall. She complains of bilateral knee pain even though both of her knees are replaced.She states she has bursitis in both knees. She states her pain is worse in her knees when sitting and then has to stand up. She struggles with standing up from a chair and turning while walking. She uses her cane all the time when outside of her house, but doesn't use the cane as much when in herhome. Her goal for therapy is to be able to have better balance and endurance in her legs. What goals to you hope to reach by the end of this program: Increase Strength and improve balance Protestant/Cultural Practices Incorporated into Care: none Preferred Learning Method/Learning Ability: dialogue Barriers to Learning: none Pain Assessment Pain Scale Used: 0-10 Pain Ratin Pain Location: Knee Nature of Pain: achy Comment: both knees have bursitis Past Medical History: Diagnosis Date Allergy, unspecified not elsewhere classified 1994, 2012, 1989, 2008 Sulfa drugs, Simvastatin, Paroxetine, Ofloxacin Arthritis 1996 CMC arthritis 02/26/2015 Colon polyp 2010 benign Depression 1986 Encounter for therapeutic drug monitoring 07/17/2017 Essential hypertension 06/18/2017 Fasting hyperglycemia 12/17/2018 HTN (hypertension) 1997 Hypercholesterolemia 1997 Mixed hyperlipidemia 06/18/2017 Obesity 1980 worse after hyst and stopped smoking SARATH (obstructive sleep apnea) no cpap Wrist pain 02/26/2015 Past Surgical History: Procedure Laterality Date ABD HYSTERECTOMY 1987 ARTHROPLASTY 2008 left knee ARTHROSCOPY 2006 left knee BREAST BIOPSY BALJEET STEREOTACTIC LT Left 06/10/2018 Benign CHOLECYSTECTOMY 1996 had pancreatitis due to obstruction COLON POLYP BX N/A 12/04/2016 Procedure: COLONOSCOPY WITH POLYP/BIOPSY;; Surgeon: Zohaib Dejesus MD COLON THERAPUTIC N/A 12/08/2014 Procedure: COLONOSCOPY THERAPEUTIC;; Surgeon: Zohaib Dejesus MD CORE NEEDLE BIOPSY Left 2010 benign CORE NEEDLE BIOPSY Left 2010 benign CYSTO & ADDT PROC & LASER Right 12/03/2017 Procedure: CYSTOSCOPY, BILATERAL FLUOROSCOPY, URETEROSCOPY LASER LITHOTRISPIE, STONE EXTRACTION ANDSTENT PLACEMENT;; Surgeon: Nehemiah Madden MD HAMMER TOES Left 02/11/2020 Procedure: CONDYLECTOMY 4TH, 5TH TOES LEFT FOOT;; Surgeon: Meño Patiño DPM HYSTERECTOMY had BSO JOINT REPLACEMENT 2008 & 2013 left knee, right knee NASAL SINUS PROCEDURE Right 07/24/2021 Procedure: Right Maxillary Antrostomy;; Surgeon: El Virk MD OOPHERECTOMY TOTAL KNEE BILATERAL ZZWRIST ADULT 1998 right wrist repair from previous trauma Current Outpatient Medications Medication buPROPion DULoxetine rosuvastatin amLODIPine Ozempic (0.25 or 0.5 MG/DOSE) esomeprazole hydroCHLOROthiazide losartan melatonin Advil PM MISC NATURAL PRODUCTS PO ubiquinol MISC NATURAL PRODUCTS PO OIL OF OREGANO PO Menaquinone-7 (VITAMIN K2 PO) icaps QUERCETIN PO diphenhydrAMINE-acetaminophen vitamin D (cholecalciferol) ELEMENTAL MAGNESIUM PO fluticasone FIBER PO acetaminophen glucosamine-chondroitin complex Probiotic Colon Support Lutein-Zeaxanthin No current facility-administered medications for this encounter. Allergies Allergen Reactions Ofloxacin Diarrhea and Dizziness Muscle pain Paxil [Paroxetine] Other (Specify in Comments) Caused low blood pressure. Simvastatin Other (Specify in Comments) Caused muscle pain. Sulfa Drugs Itching Functional Status Prior Functional Status: Able to walk without cane, less falls Current Functional Status: Frequent falls, using cane for long distance walking Work Status retired Fall Risk: Have you had any falls in the past year? Yes Are you experiencing any problems with your balance or walking? Yes Objective Assessment Observation Gait: Lateral trunk sway bilateral, Antalgic gait bilateral, and Speed decreased LE Strength-tested in sitting left Strength Hip Flexion 4+/5 Hip Extension NT Hip Abduction 5/5 Normal Hip Adduction 5/5 Normal Knee Flexion 4+/5 Knee Extension 4+/5 Ankle Dorsiflexion 5/5 Normal right Strength Hip Flexion 4+/5 Hip Extension NT Hip Abduction 5/5 Normal Hip Adduction 5/5 Normal Knee Flexion 4+/5 Knee Extension 4+/5 Ankle Dorsiflexion 5/5 Normal Special Tests: FUNCTIONAL GAIT ASSESSMENT: Gait Level Surfaces: 3. Normal-Walks 6 m (20 ft) in less than 5.5 seconds, no assistivedevices, good speed, no evidence for imbalance, normal gait pattern, deviates no more than 15.24 cm (6 in) outside of the 30.48-cm (12-in) walkway width. Changes in Gait Speed: 3. Normal-Able to smoothly change walking speed without loss of balance or gait deviation. Shows a significant difference in walking speeds between normal, fast, and slow speeds. Deviates no more than 15.24cm (6in) outisde of the 30.48cm (12in) walkway width. Gait with Horizontal Head Turns: 2. Mild impairment-Performs head turns smoothly with slight change in gait velocity (eg, minor disruption to smooth gait path), deviates 15.24-25.4 cm (6- 10 in) outside 30.48-cm (12-in) walkway width, or uses an assistive device. Gait with Vertical Head Turns: 2. Mild impairment-Performs task with slight change in gait velocity (eg, minor disruption to smooth gait path), deviates 15.24-25.4 cm (6-10 in) outside 30.48- cm (12-in) walkway width or uses assistive device. Gait and Pivot Turn: 2. Mild impairment-Pivot turns safely in 3 seconds and stops with no loss of balance, or pivot turns safely within 3 seconds and stops with mild imbalance, requires small steps to catch balance. Step Over Obstacle: 3. Normal-Is able to step over 2 stacked shoe boxes taped together (22.86 cm [9 in] total height) without changing gait speed; no evidence of imbalance. Gait with Narrow Base of Support: 1. Moderate impairment-Ambulates 4-7 steps. Gait with Eyes Closed: 2. Mild impairment-Walks 6 m (20 ft), uses assistive device, slower speed, mild gait deviations, deviates 15.24-25.4 cm (6-10 in) outside 30.48-cm (12-in) walkway width. Ambulates 6 m (20 ft) in lessthan 9 seconds but greater than 7 seconds. Ambulating Backwards: 2. Mild impairment-Walks 6 m (20 ft), uses assistive device, slower speed, mild gait deviations, deviates 15.24-25.4 cm (6-10 in) outside 30.48-cm (12-in) walkway width. Steps: 2. Mild impairment-Alternating feet, must use rail. TOTAL SCORE: 22/30; 22 or less indicates increased risk for falls, 20 or less indicates likely fallwithin 6 months. 5 times sit-stand 15.7 seconds Norms: 12.9 sec Timed up and Go (TUG): 11.7 sec Norms: 9 sec 2 minute walk test: 334 ft Norms: 493 ft Balance: Airex pad eyes open: 30 Airex pad eyes closed: 30 SLS: Right: 2 seconds Left: 2 seconds Initial Treatment: Timed Minutes: 17 minutes Untimed Minutes: 25 minutes Total Time: 42 minutes Treatment: Access Code: [email or web address] Exercises - Seated March - 2 x daily - 7 x weekly - 2 sets - 10 reps - Seated Long Arc Quad - 2 x daily - 7 x weekly - 2 sets - 10 reps - Seated Heel Raise - 2 x daily - 7 x weekly - 2 sets - 10 reps - Seated Hip Abduction with Resistance - 2 x daily - 7 x weekly - 2 sets - 10 reps - Seated Hip Adduction Isometrics with Ball - 2 x daily - 7 x weekly - 2 sets - 10 reps - 3 hold Patient Education: Yes. Handout given for HEP. Educated in safety in using cane and HEP. She was given RTB for HEP. Assessment: Patient is a 74yr female who presents with increased pain in her knees, decreased balance and gait and decreased functional strength. Impression Significant Findings: Decreased activity tolerance, Decreased strength, Impaired gait, and Pain, Decreased balance Rehab Potential: Good The patient should benefit from skilled physical therapy services to address these deficits and allow for improved balance, strength and gait. Evaluation Complexity Moderate: 1-2 personal factors or comorbidities affecting plan of car, evaluation of 3 or more bodystructures, functions, or activity limitations, evolving/changing clinical presentation, eval takesapprox. 30 min Medical Necessity Medical Necessity: Patient appropriate for skilled PT services Informed Consent Informed Consent : Yes Goals: Short Term Goals: To be met within 6 weeks: 1. Patient will be able to participate in a HEP for general strengthening in order to help with herfunctional mobility 2. Patient will be able to improve her 5x sit to stand to 12 seconds or less in order to improve functional strength 3. Patient will be able to improve her 2 minute walk to 350 ft or more without AD in order to improve overall endurance 4. Patient will be able to improve her TUG to 10 sec or less in order to decrease fall risk 5. Patient will be able to ambulate on uneven surface with SPC and no loss of balance Die Press Operator Goals: To be met within 12 weeks: 1. Patient will be able to improve her FGA to 23 or more in order to decrease her fall risk 2. Patient will be able to perform single leg stance 5-10 bilaterally in order to improve balance 3. Patient will be able to participate in 6 minute walk test without AD in order to improve overallendurance 4. Patient will be able to participate in an advanced HEP in order to maintain her strength and balance gained in therapy Goals were discussed with and agreed upon by patient. Plan: Frequency: 1-2 times per week. Duration: 12 weeks pending progress. Intervention Interventions: Aquatic Therapy, Electrotherapy, Evaluation, Gait Training, Instrument-Assisted SoftTissue Mobilization, Iontophoresis with Dexamethasone, Manual Therapy, Neuromuscular Re-Education, Therapeutic Activity, Therapeutic Exercise, and Ultrasound Thank you Compa Benson MD for [facility]. If you have any questions or concerns regarding this patient's physical therapy evaluation or plan of care, please contact me at [phone]. Sincerely, Miranda Rose PT, DPT Cosigned by Compa Guevara MD at 05/19/2025 2:16 PM CDT documented in this encounter Plan of Treatment Upcoming Encounters Date Type Department Care Team (Latest Contact Info) Description 07/06/2025 4:00 PM CDT Appointment [facility] PHYSICAL THERAPY [address] [facility] [address] [place] [address] Compa Guevara MD [address] [place] [address] Miranda Rose, PT [address] [place] [address] 07/20/2025 10:00 AM CDT Office Visit [facility] [address] [facility] [address] [place] [address] Addi Matias, DPM [id number] [place] [address] Discharge Disposition: Home, Self Care 07/22/2025 9:45 AM CDT Appointment [facility] PHYSICAL THERAPY [address] [place] [address] Compa Guevara MD [address] [place] [address] Miranda Rose, PT [address] [place] [address] 07/28/2025 9:30 AM MANAGER INTERNET Office Visit [facility] [place] [facility] [address] [place] [address] Compa Guevara MD [address] [place] [address] Discharge Disposition: Home, Self Care 07/28/2025 3:15 PM MANAGER INTERNET Appointment [facility] PH[facility]ICAL [facility]ERAPY [address] [facility] [address] [place] [address] Compa Guevara MD [address] [place] [address] Miranda Rose, PT [address] [place] [address] 08/03/2025 9:15 AM MANAGER INTERNET Appointment [facility] PH[facility]ER[facility] [address] [place] [address] Compa Guevara MD [address] [place] [address] Miranda Rose, PT [address] [place] [address] 2025 2:30 PM MANAGER INTERNET Appointment [facility] PH[facility]ERAPY [address] [place] [address] Compa Guevara MD [address] [place] [address] Miranda Rose, PT [address] [place] [address] 08/13/2025 9:00 AM MANAGER INTERNET Appointment [facility] PH[facility]ER[facility] [address] [place] [address] Compa Guevara MD [address] [place] [address] Miranda Rose, PT [address] [place] [address] 10/18/2025 8:30 AM MANAGER INTERNET Ancillary Procedure [facility] [place] [address] Discharge Disposition: Home, Self Care documented as of this encounter Goals Goal Patient Goal Type Associated Problems Recent Progress Patient-Stated? Author DIET - REDUCE SUGAR INTAKE Diet Not on track( 10:54 AM CDT) No Rain Castle APRN-PLASTIC INJECTION MOLD MAKER DIET - KEEP A DAILY FOOD DIARY Diet Yes Mariangel Virk, SENAIT Note: 07/17/22 Use a food journal or Quantance It mariela to document all food eaten for two weeks. Reassess at next office visit. Use of food journal will help to monitor food intake and carbohydrates. DIET - INCREASE WATER INTAKE Diet No Mariangel Virk, SENAIT Note: 07/17/22 Drink 2 liters of water per day. Reassess at next office visit. LIFESTYLE - EXERCISE A NUMBER OF TIMES PER WEEK Exercise Not on track( 10:54 AM CDT) No Rain Castle APRN-CNP Note: Every other day use bowflex and treadmill at home, increasing length and intensity gradually. HGB A1C < 7 Result Component 5.8( 5 8:25 AM CDT) Mariangel Gray, RN Note: 07/17/22 Weight < 90.719 kg (200 lb) Weight 115.6 kg (254 lb 12.8 oz)( 5 10:00 AM CDT) No Rain Castle, ALEXX documented as of this encounter Visit Diagnoses Diagnosis Unsteadiness Abnormality of gait documented in this encounter Care Teams Grip Relationship Specialty Start Date End Date Compa Guevara MD [address] [place] [address] PCP - General Internal Medicine 08/18/19 Compa Guevara MD [address] [place] [address] PCP - Attributed Provider 03/17/21 Provider, No Attributed, RESOURCE [address] 08/13/16 Rain Castle, RN [address] [facility] [place] [address] Plating TechnicianDirector Ehs Medicine 05/18/15 documented as of this encounter
--- OUTSIDE RECORDS SUMMARY | 2025-05-21 09:14 | XMS_ITS | Encounter Summary ---
Author Organization [facility] [employer] [facility] Address [address] [address] [place] [address] Care Team Providers Care Documentation Specialist Name Role Phone Compa Guevara MD Primary Care Provider [phone] Provider, No Attributed RESOURCE Unavailable Unavailable Rain Castle RN Unavailable [phone] Compa Guevara MD Unavailable [phone] Reason for Visit * FCC PT (Routine) [...] PROC Compa Guevara MD [address] [facility] [place] [address] Phone: tel: fax: [facility] [address] [place] [address] Phone: tel: fax: Referral ID Status Reason Start Date Expiration Date Visits Requested Visits Authorized [id number] Authorized Continuity of Care 05/19/2025 09/22/2025 99 99 Encounter Details Date Type Department Care Team (Latest Contact Info) Description 05/21/2025 9:14 AM CDT - 05/21/2025 11:59 PM CDT Hospital Encounter [facility] [address] [facility] [place] [address] Compa Guevara MD [address] [place] [address] Miranda Rose, PT [address] [place] [address] Unsteadiness Discharge Disposition: Still a Patient Social [...] often do you attend chur ch or pentecostalism services? Never 11/19/2023 Do you belong to any clubs o r organizations such as adventism groups, unions, fraternal or athletic groups, or [...] Answer Date Recorded PHQ-2 Total 3 04/20/2025 [facility] of Occupat ional Health - Occupational [...] place to sleep or slept in a mcc (including now)? No 11/19/2023 Housing Stability Vital Sign Answer Henrik e Recorded In the last 12 months, was t here a time when you were not able to pay the mortgage or rent on time? No 09/02/2024 In the past 12 months, how m any times have you moved where you were living? 0 09/02/2024 At any time in the past 12 m [facility], were you homeless or living in a mcc (including now)? No 09/02/2024 Hunger Vital Sign [...] any time in the past 12 m [facility], were you homeless or living in a mcc (including now)? No 04/20/2025 [facility] Utilities Answer Date Recorded In the past [...] DAILY (PLEASE CALL TO SCHEDULE FOLLOW UP [phone]) 90 tablet 3 5 DULoxetine (CYMBALTA) 60 [...] Vitamin C 40mg, Grape Seed Extract 26.3mg, [place] Fruit Extract 100mg, L-lysine 125mg OIL OF [...] nasal sprayIndications:Pl ugged feeling in ear, right [place] 2 sprays into each nostril 1 time [...] as of this encounter Progress Notes * Miranda Rose, PT - 05/21/2025 9:52 AM CDT Outpatient Physical Therapy Daily Treatment Note Patient Name: Ace Domínguez : 1950 MR#: [id number] Referring Provider: Compa Guevara MD Therapy Session Reason for therapy: Unsteadiness Visit Number: 2 Medicare Certification: 05/19/25 through 08/11/25 Therapy Diagnosis: decreased functional strength, decreased balance, decreased endurance Subjective: Bethany states that she did the exercises and they are going well. No issues with HEP. Pain Pain Scale Used: 0-10 Pain Ratin Nature of pain: No pain Comment: No pain Treatment: Therapeutic Exercise (30 minutes): -Nustep x7 minutes Level 3 -Supine exercises: -Bridges x10 -SAQ 3 hold x10 B -SLR x10 B -Seated exercises: -Alt marching 2x20 2# -LAQ 2x10 B 2# -Hip abd 2x10 GTB -Knee flexion 2x10 B GTB -Hip add ball squeeze 3 hold 2x10 -Standing exercises: -Alt marching x20 -Hip extension x10 B -Hip abd x10 B -Heel raises x10 -Toe raises x10 -Mini squats x10 Neuromuscular Reeducation (10 minutes): -Walking on foam beam: -fwd x6 lengths -sidestep x3 lengths B -Tandem stance on floor 2x20 B with intermittent UE support -Step over band on floor working on weight shifting x10 B Assessment: Patient verbalizes understanding of home exercise program? yes-continue with current program Comments: Bethany did well with exercises. She has tendency to go too quickly when doing her balance exercises and will lose her balance. She needed verbal cues to slow down and pay attention to her body awareness to see if she can maintain her balance. Plan: Continue skilled PT services Comment: Continue with balance and strengthening Session Summary: Total timed: 40 minutes Total untimed: 0 minutes Total treatment time: 40 minutes documented in this encounter Plan of Treatment Upcoming Encounters Date Type Department Care Team (Latest Contact Info) Description 07/06/2025 4:00 PM CDT Appointment [facility] [address] [address] [place] [address] Compa Guevara MD [address] [place] [address] Miranda Rose, PT [address] [place] [address] 07/20/2025 10:00 AM CDT Office Visit [facility] [address] [address] [place] [address] Addi Matias, DPM [address] [address] [place] [address] Discharge Disposition: Home, Self Care 07/22/2025 9:45 AM CDT Appointment [facility] [address] [address] [place] [address] Compa Guevara MD [address] [place] [address] Miranda Rose, PT [address] [place] [address] 07/28/2025 9:30 AM AVIATION NEUROPSYCHOLOGIST [facility] [address] [place] [address] Compa Guevara MD [address] [place] [address] Discharge Disposition: Home, Self Care 07/28/2025 3:15 PM AVIATION NEUROPSYCHOLOGIST Appointment [facility] [address] [place] [address] Compa Guevara MD [address] [place] [address] Miranda Rose, PT [address] [place] [address] 08/03/2025 9:15 AM AVIATION NEUROPSYCHOLOGIST Appointment [facility] [address] [place] [address] Compa Guevara MD [address] [place] [address] Miranda Rose, PT [address] [place] [address] 2025 2:30 PM AVIATION NEUROPSYCHOLOGIST Appointment [facility] [address] [place] [address] Compa Guevara MD [address] [place] [address] Miranda Rose, PT [address] [place] [address] 08/13/2025 9:00 AM AVIATION NEUROPSYCHOLOGIST Appointment [facility] [address] [place] [address] Compa Guevara MD [address] [place] [address] Miranda Rose, PT [address] [place] [address] 10/18/2025 8:30 AM AVIATION NEUROPSYCHOLOGIST Ancillary Procedure [facility] [address] [place] [address] Discharge Disposition: Home, Self Care documented as of this encounter Goals Goal Patient Goal Type Associated Problems Recent Progress Patient-Stated? Author DIET - REDUCE SUGAR INTAKE Diet Not on track( 10:54 AM CDT) No Rain Castle APRN-CNP DIET - KEEP A DAILY FOOD DIARY Diet Yes Mariangel Virk, RN Note: 07/17/22 Use a food journal or [employer] It mariela to document all food eaten for two weeks. Reassess at next office visit. Use of food journal will help to monitor food intake and carbohydrates. DIET - INCREASE WATER INTAKE Diet No Mariangel Virk, RN Note: 07/17/22 Drink 2 liters of water per day. Reassess at next office visit. LIFESTYLE - EXERCISE A NUMBER OF TIMES PER WEEK Exercise Not on track( 10:54 AM CDT) No Rain Castle, ALEXX Note: Every other day use bowflex and treadmill at home, increasing length and intensity gradually. HGB A1C < 7 Result Component 5.8( 5 8:25 AM CDT) No Mariangel Virk, RN Note: 07/17/22 Weight < 90.719 kg (200 lb) Weight 115.6 kg (254 lb 12.8 oz)( 5 10:00 AM CDT) No Rain Castle, DISABILITY INSURANCE HEARING OFFICER-FINE ARTS TEACHER documented as of this encounter Visit Diagnoses Not on filedocumented in this encounter Care Teams Documentation Specialist Relationship Specialty Start Date End Date Compa Guevara MD [address] [facility] [place] [address] PCP - General Internal Medicine 08/18/19 Compa Guevara MD [address] [facility] [place] [address] PCP - Attributed Provider 03/17/21 Provider, No Attributed, RESOURCE [address] 08/13/16 Rain Castle, RN [address] [place] [address] Recovery ManagerManager Physical Medicine 05/18/15 documented as of this encounter
--- OUTSIDE RECORDS SUMMARY | 2025-05-27 08:57 | XMS_ITS | Encounter Summary ---
Author Organization [facility] [employer] [facility] Address [address] [address] [place] [address] Care Team Providers Care Car Sales Associate Name Role Phone Compa Guevara MD Primary Care Provider [phone] Provider, No Attributed RESOURCE Unavailable Unavailable Rain Castle RN Unavailable [phone] Compa Guevara MD Unavailable [phone] Reason for Visit * FCC PT (Routine) [...] PROC Compa Guevara MD [address] [place] [address] Phone: tel: fax: [facility] [address] [place] [address] Phone: tel: fax: Referral ID Status Reason Start Date Expiration Date Visits Requested Visits Authorized [id number] Authorized Continuity of Care 05/19/2025 09/22/2025 99 99 Encounter Details Date Type Department Care Team (Latest Contact Info) Description 05/27/2025 8:57 AM CDT - 05/27/2025 11:59 PM CDT Hospital Encounter [facility] PHYSICAL THERAPY [address] [facility] [place] [address] Compa Guevara MD [address] [place] [address] Miranda Rose, PT [address] [place] [address] Unsteadiness Discharge Disposition: Still a Patient Social [...] often do you attend chur ch or buddhist services? Never 11/19/2023 Do you belong to any clubs o r organizations such as episcopalian groups, unions, fraternal or athletic groups, or [...] Answer Date Recorded PHQ-2 Total 3 04/20/2025 [facility] of Occupat ional Health - Occupational Stress [...] place to sleep or slept in a usp (including now)? No 11/19/2023 Housing Stability Vital [...] time in the past 12 m [facility], were you homeless or living in a usp (including now)? No 09/02/2024 Hunger Vital Sign [...] time in the past 12 m [facility], were you homeless or living in a usp (including now)? No 04/20/2025 [facility] Utilities Answer Date Recorded In the [...] DAILY (PLEASE CALL TO SCHEDULE FOLLOW UP [phone]) 90 tablet 3 5 DULoxetine (CYMBALTA) 60 [...] Vitamin C 40mg, Grape Seed Extract 26.3mg, Coffee Fruit Extract 100mg, L-lysine 125mg OIL OF [...] nasal sprayIndications:Pl ugged feeling in ear, right [place] 2 sprays into each nostril 1 time [...] Progress Notes * Miranda Rose, PT - 05/27/2025 9:11 AM CDT Outpatient Physical Therapy Daily Treatment Note Patient Name: Ace Domínguez : 1950 MR#: [id number] Referring Provider: Compa Guevara MD Therapy Session Reason for therapy: Unsteadiness Visit Number: 3 Medicare Certification: 05/19/25 through 08/11/25 Therapy Diagnosis: decreased functional strength, decreased balance, decreased endurance Subjective: Bethany reports that she was sore for 2 days after last session. She is trying to get her exercises in daily, but it hasn't always happened. Pain Pain Scale Used: 0-10 Pain Ratin Nature of pain: No pain Comment: No pain Treatment: Therapeutic Exercise (33 minutes): -Nustep x7 minutes Level 3 -Supine exercises: -Bridges with ball squeeze 2x10 -SAQ 3 hold 2x10 B 2# -SLR 2x10 B 2# -Seated exercises: -Alt marching 2x20 2# -LAQ 2x10 B 2# -Hip abd 2x10 GTB -Knee flexion 2x10 B GTB -Hip add ball squeeze 3 hold 2x10 -Standing exercises: -Alt marching 2x20 -Hip extension 2x10 B -Hip abd 2x10 B -Heel raises 2x10 -Toe raises 2x10 -Mini squats 2x10 Neuromuscular Reeducation (10 minutes): -Walking on foam beam: -fwd x6 lengths -sidestep x3 lengths B -Tandem stance on floor 2x20 B with intermittent UE support -Step over band on floor working on weight shifting x10 B Assessment: Patient verbalizes understanding of home exercise program? yes-continue with current program Comments: Able to add in 2 sets of all exercises and added 2# weight to SAQ and SLR. She tolerated exercises well and did not need any assist. Plan: Continue skilled PT services Comment: Continue with balance and strengthening Session Summary: Total timed: 40 minutes Total untimed: 0 minutes Total treatment time: 40 minutes documented in this encounter Plan of Treatment Upcoming Encounters Date Type Department Care Team (Latest Contact Info) Description 07/06/2025 4:00 PM CDT Appointment [facility] PHYSICAL THERAPY [address] [place] [address] [place] [address] Compa Guevara MD [address] [place] [address] Miranda Rose, PT [address] [place] [address] 07/20/2025 10:00 AM CDT Office Visit [facility] [address] [place] [address] [place] [address] Addi Matias, DPM [address] [place] [address] [place] [address] Discharge Disposition: Home, Self Care 07/22/2025 9:45 AM CDT Appointment [facility] PHYSICAL THERAPY [address] [place] [address] [place] [address] Compa Guevara MD [address] [place] [address] Miranda Rose, PT [address] [place] [address] 07/28/2025 9:30 AM NUCLEAR POWERPLANT MECHANIC Office Visit [place] [facility] [address] [place] [address] Compa Guevara MD [address] [place] [address] Discharge Disposition: Home, Self Care 07/28/2025 3:15 PM NUCLEAR POWERPLANT MECHANIC Appointment [facility] PHYSICAL THERAPY [address] [place] [address] [place] [address] Compa Guevara MD [address] [place] [address] Miranda Rose, PT [address] [place] [address] 08/03/2025 9:15 AM NUCLEAR POWERPLANT MECHANIC Appointment [facility] PHYSICAL THERAPY [address] [place] [address] [place] [address] Compa Guevara MD [address] [place] [address] Miranda Rose, PT [address] [place] [address] 2025 2:30 PM NUCLEAR POWERPLANT MECHANIC Appointment [facility] PHYSICAL THERAPY [address] [place] [address] [place] [address] Compa Guevara MD [address] [place] [address] Miranda Rose, PT [address] [place] [address] 08/13/2025 9:00 AM NUCLEAR POWERPLANT MECHANIC Appointment [facility] PHYSICAL THERAPY [address] [place] [address] [place] [address] Compa Guevara MD [address] [place] [address] Miranda Rose, PT [address] [place] [address] 10/18/2025 8:30 AM NUCLEAR POWERPLANT MECHANIC Ancillary Procedure [facility] [place] [facility] VERONICA [address] [place] [address] Discharge Disposition: Home, Self Care documented as of this encounter Goals Goal Patient Goal Type Associated Problems Recent Progress Patient-Stated? Author DIET - REDUCE SUGAR INTAKE Diet Not on track( 10:54 AM CDT) No Rain Castle APRN-CNP DIET - KEEP A DAILY FOOD DIARY Diet Yes Mariangel Virk, RN Note: 07/17/22 Use a food journal or [employer] It mariela to document all food eaten [...] lb) Weight 115.6 kg (254 lb 12.8 oz)(09/26/202 5 10:00 AM CDT) No Rain Castle, HISTORIC INTERPRETER-CHIEF OPTOMETRY SERVICE documented as of this encounter Visit Diagnoses Not on filedocumented in this encounter Care Teams Car Sales Associate Relationship Specialty Start Date End Date Compa Guevara MD [address] [place] [address] PCP - General Internal Medicine 08/18/19 Compa Guevara MD [address] [facility] [id number] PCP - Attributed Provider 03/17/21 Provider, No Attributed, RESOURCE [address] 08/13/16 Rain Castle, RN [address] [facility], [place] [id number] Tamale Machine FeederGrass Cutter Medicine 05/18/15 documented as of this encounter
--- OUTSIDE RECORDS SUMMARY | 2025-06-02 08:32 | XMS_ITS | Encounter Summary ---
Author Organization [facility] [employer] [facility] Address [address] [address] [place] [address] Care Team Providers Care Waterway Traffic Checker Name Role Phone Compa Guevara MD Primary Care Provider [phone] Provider, No Attributed RESOURCE Unavailable Unavailable Rain Castle RN Unavailable [phone] Compa Guevara MD Unavailable [phone] Reason for Visit * FCC PT (Routine) [...] PROC Compa Guevara MD [address] [facility] [address] Phone: tel: fax: [facility] [address] [place] [address] [place] [address] Phone: tel: fax: Referral ID Status Reason Start Date Expiration Date Visits Requested Visits Authorized [id number] Authorized Continuity of Care 05/19/2025 09/22/2025 99 99 Encounter Details Date Type Department Care Team (Latest Contact Info) Description 06/02/2025 8:32 AM CDT - 06/02/2025 11:59 PM CDT Hospital Encounter [facility] PHYSICAL THERAPY [address] [facility] [place] [address] Compa Guevara MD [address] [place] [address] Miranda Rose, PT [address] [place] [address] [place] [address] Unsteadiness Discharge Disposition: Still a Patient Social [...] often do you attend chur ch or catholic services? Never 11/19/2023 Do you belong to any clubs o r organizations such as jain groups, unions, fraternal or athletic groups, or [...] Answer Date Recorded PHQ-2 Total 3 04/20/2025 [facility] of Occupat ional Health - Occupational Stress [...] place to sleep or slept in a fdc (including now)? No 11/19/2023 Housing Stability Vital Sign Answer Henrik e Recorded In the last 12 months, was t here a time when you were not able to pay the mortgage or rent on time? No 09/02/2024 In the past 12 months, how m any times have you moved where you were living? 0 09/02/2024 At any time in the past 12 m [facility], were you homeless or living in a fdc (including now)? No 09/02/2024 Hunger Vital Sign [...] any time in the past 12 m [facility], were you homeless or living in a fdc (including now)? No 04/20/2025 [facility] Utilities Answer Date Recorded In [...] DAILY (PLEASE CALL TO SCHEDULE FOLLOW UP [phone]) 90 tablet 3 5 DULoxetine (CYMBALTA) 60 [...] Vitamin C 40mg, Grape Seed Extract 26.3mg, [place] Fruit Extract 100mg, L-lysine 125mg OIL OF [...] nasal sprayIndications:Pl ugged feeling in ear, right [place] 2 sprays into each nostril 1 time [...] Patient Name: Ace Domínguez : 1950 MR#: [id number] Referring Provider: Compa Guevara MD Therapy Session [...] Info) Description 07/06/2025 4:00 PM CDT Appointment [facility] PHYSICAL THERAPY [address] [place] [address] Compa Guevara MD [address] [facility] [place] [address] Miranda Rose, PT [address] [address] 07/20/2025 10:00 AM CDT Office Visit [facility] [address] [place] [address] Addi Matias, DPM [address] [place] [address] Discharge Disposition: Home, Self Care 07/22/2025 9:45 AM CDT Appointment [facility] PHYSICAL THERAPY [address] [place] [address] Compa Guevara MD [address] [facility] [place] [address] Miranda Rose, PT [address] [place] [address] 07/28/2025 9:30 AM TRACK WATCHMAN [facility] [address] [place] [address] Compa Guevara MD [address] [place] [address] Discharge Disposition: Home, Self Care 07/28/2025 3:15 PM TRACK WATCHMAN Appointment [facility] PHYSICAL THERAPY [address] [facility] [place] [address] Compa Guevara MD [address] [place] [address] Miranda Rose, PT [address] [place] [address] 08/03/2025 9:15 AM TRACK WATCHMAN Appointment [facility] PHYSICAL THERAPY [address] [facility] [place] [address] Compa Guevara MD [address] [place] [address] Miranda Rose, PT [address] [place] [address] 2025 2:30 PM TRACK WATCHMAN Appointment [facility] PHYSICAL THERAPY [address] [facility] [place] [address] Compa Guevara MD [address] [place] [address] Miranda Rose, PT [address] [place] [address] 08/13/2025 9:00 AM TRACK WATCHMAN Appointment [facility] PHYSICAL THERAPY [address] [place] [address] [place] [address] Compa Guevara MD [address] [place] [address] Miranda Rose, PT [address] [place] [address] 10/18/2025 8:30 AM TRACK WATCHMAN Ancillary Procedure [facility] [address] [place] [address] Discharge Disposition: Home, Self Care documented as of this encounter Goals Goal Patient Goal Type Associated Problems Recent Progress Patient-Stated? Author DIET - REDUCE SUGAR INTAKE Diet Not on track( 10:54 AM CDT) No Rain Castle, ALEXX DIET - KEEP A DAILY FOOD DIARY Diet Yes Mariangel Virk, SENAIT Note: 07/17/22 Use a food journal or Dyyno It mariela to document all food eaten [...] track( 10:54 AM CDT) No Rain Castle, LORESAMPLE PREP TECHNICIAN Note: Every other day use bowflex and treadmill at home, increasing length and intensity gradually. HGB A1C < 7 Result Component 5.8( 8:25 AM CDT) No Mariangel Virk, RN Note: 07/17/22 Weight < 90.719 kg (200 lb) Weight 115.6 kg (254 lb 12.8 oz)( 5 10:00 AM CDT) No Rain Castle, WRAPPER HANDS SPRAYER-SAMPLE PREP TECHNICIAN documented as of this encounter Visit Diagnoses Not on filedocumented in this encounter Care Teams Waterway Traffic Checker Relationship Specialty Start Date End Date Compa Guevara MD [address] [facility], [place] [id number] PCP - General Internal Medicine 08/18/19 Compa Guevara MD [address] [facility] [place] [address] PCP - Attributed Provider 03/17/21 Provider, No Attributed, RESOURCE [address] 08/13/16 Rain Castle, RN [address] [facility], [place] [id number] Skinning Machine FeederInformation Services Assistant Medicine 05/18/15 documented as of this encounter
--- OUTSIDE RECORDS SUMMARY | 2025-06-04 08:17 | XMS_ITS | Encounter Summary ---
Author Organization [facility] Your Office Agent [facility] Address [address] [address] [place] [address] Care Team Providers Care Septic Technician Name Role Phone Compa Guevara MD Primary Care Provider [phone] Provider, No Attributed RESOURCE Unavailable Unavailable Rain Castle RN Unavailable [phone] Compa Guevara MD Unavailable [phone] Reason for Visit * FCC PT (Routine) [...] PROC Compa Guevara MD [address] [place] [address] Phone: tel: fax: [facility] [address] [place] [address] Phone: tel: fax: Referral ID Status Reason Start Date Expiration Date Visits Requested Visits Authorized [id number] Authorized Continuity of Care 05/19/2025 09/22/2025 99 99 Encounter Details Date Type Department Care Team (Latest Contact Info) Description 06/04/2025 8:17 AM CDT - 06/04/2025 11:59 PM CDT Hospital Encounter [facility] [address] [facility] [place] [address] Compa Guevara MD [address] [place] [address] Miranda Rose, PT [address] [place] [address] Unsteadiness Discharge Disposition: Still a Patient Social [...] often do you attend chur ch or orthodoxy services? Never 11/19/2023 Do you belong to any clubs o r organizations such as amish groups, unions, fraternal or athletic groups, or [...] Answer Date Recorded PHQ-2 Total 3 04/20/2025 [facility] of Occupat ional Health - Occupational [...] place to sleep or slept in a care home (including now)? No 11/19/2023 Housing Stability Vital Sign Answer Henrik e Recorded In the last 12 months, was t here a time when you were not able to pay the mortgage or rent on time? No 09/02/2024 In the past 12 months, how m any times have you moved where you were living? 0 09/02/2024 At any time in the past 12 m [facility], were you homeless or living in a care home (including now)? No 09/02/2024 Hunger Vital Sign [...] any time in the past 12 m [facility], were you homeless or living in a care home (including now)? No 04/20/2025 [facility] Utilities Answer Date Recorded In the [...] DAILY (PLEASE CALL TO SCHEDULE FOLLOW UP [phone]) 90 tablet 3 5 DULoxetine (CYMBALTA) 60 [...] Vitamin C 40mg, Grape Seed Extract 26.3mg, [place] Fruit Extract 100mg, L-lysine 125mg OIL OF [...] nasal sprayIndications:Pl ugged feeling in ear, right [place] 2 sprays into each nostril 1 time [...] Patient Name: Ace Domínguez : 1950 MR#: [id number] Referring Provider: Compa Guevara MD Therapy Session [...] tolerated exercises well. She needed cues to belt picker her feet when stepping over 4 [...] Info) Description 07/06/2025 4:00 PM CDT Appointment [facility] [address] [address] [place] [address] Compa Guevara MD [address] [place] [address] Miranda Rose, PT [address] [place] [address] 07/20/2025 10:00 AM CDT Office Visit [facility] [address] [address] [place] [address] Addi Matias, DPM [address] [address] [place] [address] Discharge Disposition: Home, Self Care 07/22/2025 9:45 AM CDT Appointment [facility] [address] [address] [place] [address] Compa Guevara MD [address] [place] [address] Miranda Rose, PT [address] [place] [address] 07/28/2025 9:30 AM SIDE PANEL PADDER [facility] [address] [place] [address] Compa Guevara MD [address] [place] [address] Discharge Disposition: Home, Self Care 07/28/2025 3:15 PM SIDE PANEL PADDER Appointment [facility] [address] [facility] [place] [address] Compa Guevara MD [address] [place] [address] Miranda Rose, PT [address] [place] [address] 08/03/2025 9:15 AM SIDE PANEL PADDER Appointment [facility] [address] [facility] [place] [address] Compa Guevara MD [address] [place] [address] Miranda Rose, PT [address] [place] [address] 2025 2:30 PM SIDE PANEL PADDER Appointment [facility] [address] [facility] [place] [address] Compa Guevara MD [address] [place] [address] Miranda Rose, PT [address] [place] [address] 08/13/2025 9:00 AM SIDE PANEL PADDER Appointment [facility] [address] [place] [place] [address] Compa Guevara MD [address] [place] [address] Miranda Rose, PT [address] [place] [address] 10/18/2025 8:30 AM SIDE PANEL PADDER Ancillary Procedure [facility] [address] [place] [address] Discharge Disposition: Home, Self Care documented as of this encounter Goals Goal Patient Goal Type Associated Problems Recent Progress Patient-Stated? Author DIET - REDUCE SUGAR INTAKE Diet Not on track( 10:54 AM CDT) No Rain Castle, ALEXX DIET - KEEP A DAILY FOOD DIARY Diet Yes Mariangel Virk, RN Note: 07/17/22 Use a food journal or [employer] It mariela to document all food eaten [...] 5 10:00 AM CDT) No Rain Castle, BAND HEAD SAW OPERATOR-RN ANESTHETIST documented as of this encounter Visit Diagnoses Not on filedocumented in this encounter Care Teams Septic Technician Relationship Specialty Start Date End Date Compa Guevara MD [address] [facility], [place] [id number] PCP - General Internal Medicine 08/18/19 Compa Guevara MD [address] [facility], [place] [id number] PCP - Attributed Provider 03/17/21 Provider, No Attributed, RESOURCE [address] 08/13/16 Rain Castle, RN [address] [facility], [place] [id number] Osteopathic ResidentParking Meter Mechanic Medicine 05/18/15 documented as of this encounter
--- OUTSIDE RECORDS SUMMARY | 2025-06-08 08:04 | XMS_ITS | Encounter Summary ---
Author Organization [facility] [employer] [facility], [facility] Address [address] [address] [place] [address] Care Team Providers Care Plunger Shovel Operator Name Role Phone Compa Guevara MD Primary Care Provider [phone] Provider, No Attributed RESOURCE Unavailable Unavailable Rain Castle RN Unavailable [phone] Compa Guevara MD Unavailable [phone] Reason for Visit * FCC PT (Routine) [...] PROC Compa Guevara MD [address] [place] [address] Phone: tel: fax: [facility] [address] [place] [address] Phone: tel: fax: Referral ID Status Reason Start Date Expiration Date Visits Requested Visits Authorized [id number] Authorized Continuity of Care 05/19/2025 09/22/2025 99 99 Encounter Details Date Type Department Care Team (Latest Contact Info) Description 06/08/2025 8:04 AM CDT - 06/08/2025 11:59 PM CDT Hospital Encounter [facility] [address] [facility] [place] [address] Compa Guevara MD [address] [place] [address] Miranda Rose, PT [address] [place] [address] Unsteadiness Discharge Disposition: Still a Patient Social [...] often do you attend chur ch or latter day services? Never 11/19/2023 Do you belong to any clubs o r organizations such as buddhist groups, unions, fraternal or athletic groups, or [...] PHQ-2 Total 3 04/20/2025 [facility] of Occupat ional Health - [...] place to sleep or slept in a correction (including now)? No 11/19/2023 Housing Stability Vital Sign Answer Henrik e Recorded In the last 12 months, was t here a time when you were not able to pay the mortgage or rent on time? No 09/02/2024 In the past 12 months, how m any times have you moved where you were living? 0 09/02/2024 At any time in the past 12 m [facility], were you homeless or living in a correction (including now)? No 09/02/2024 Hunger Vital Sign [...] any time in the past 12 m [facility], were you homeless or living in a correction (including now)? No 04/20/2025 [facility] Utilities Answer Date Recorded In the past [...] DAILY (PLEASE CALL TO SCHEDULE FOLLOW UP [phone]) 90 tablet 3 5 DULoxetine (CYMBALTA) 60 [...] Vitamin C 40mg, Grape Seed Extract 26.3mg, [place] Fruit Extract 100mg, L-lysine 125mg OIL OF [...] nasal sprayIndications:Pl ugged feeling in ear, right [place] 2 sprays into each nostril 1 time [...] Patient Name: Ace Domínguez : 1950 MR#: [id number] Referring Provider: Compa Guevara MD Therapy Session [...] stance today. She did need cues to pick and shovel man her feet with stepping over the albert. Plan: Continue skilled PT services Comment: Continue with balance and strengthening Session Summary: Total timed: 42 minutes Total untimed: 0 minutes Total treatment time: 42 minutes documented in this encounter Plan of Treatment Upcoming Encounters Date Type Department Care Team (Latest Contact Info) Description 07/06/2025 4:00 PM CDT Appointment [facility] [address] [address] [place] [address] Compa Guevara MD [address] [place] [address] Miranda Rose, PT [address] [address] 07/20/2025 10:00 AM CDT Office Visit [facility] [address] [address] [place] [address] Addi Matias, DPM [address] [address] [place] [address] Discharge Disposition: Home, Self Care 07/22/2025 9:45 AM CDT Appointment [facility] [address] [address] [place] [address] Compa Guevara MD [address] [place] [address] Miranda Rose, PT [address] [place] [address] 07/28/2025 9:30 AM INTERVENTIONAL NEURORADIOLOGIST [facility] [address] [place] [address] Compa Guevara MD [address] [place] [address] Discharge Disposition: Home, Self Care 07/28/2025 3:15 PM INTERVENTIONAL NEURORADIOLOGIST Appointment [facility] [address] [facility] [place] [address] Compa Guevara MD [address] [place] [address] Miranda Rose, PT [address] [place] [address] 08/03/2025 9:15 AM INTERVENTIONAL NEURORADIOLOGIST Appointment [facility] [address] [facility] [place] [address] Compa Guevara MD [address] [place] [address] Miranda Rose, PT [address] [place] [address] 2025 2:30 PM INTERVENTIONAL NEURORADIOLOGIST Appointment [facility] [address] [facility] [place] [address] Compa Guevara MD [address] [place] [address] Miranad Rose, PT [address] [place] [address] 08/13/2025 9:00 AM INTERVENTIONAL NEURORADIOLOGIST Appointment [facility] [address] [place] [address] [place] [address] Compa Guevara MD [address] [place] [address] Miranda Rose, PT [address] [place] [address] 10/18/2025 8:30 AM INTERVENTIONAL NEURORADIOLOGIST Ancillary Procedure [facility] JULIA MARTIN [address] [place] [address] Discharge Disposition: Home, Self Care documented as of this encounter Goals Goal Patient Goal Type Associated Problems Recent Progress Patient-Stated? Author DIET - REDUCE SUGAR INTAKE Diet Not on track( 022 10:54 AM CDT) No Rain Castle, ALEXX DIET - KEEP A DAILY FOOD DIARY Diet Yes Mariangel Virk, SENAIT Note: 07/17/22 Use a food journal or [employer] It mariela to document all food eaten [...] 022 10:54 AM CDT) No Rain Castle APRN-ZIGZAGGER Note: Every other day use bowflex and treadmill at home, increasing length and intensity gradually. HGB A1C < 7 Result Component 5.8( 5 8:25 AM CDT) No Mariangel Virk, RN Note: 07/17/22 Weight < 90.719 kg (200 lb) Weight 115.6 kg (254 lb 12.8 oz)( 5 10:00 AM CDT) No Rain Castle, OFFICE EQUIPMENT MECHANIC-ZIGZAGGER documented as of this encounter Visit Diagnoses Not on filedocumented in this encounter Care Teams Plunger Shovel Operator Relationship Specialty Start Date End Date Compa Guevara MD [address] [facility], [place] [id number] PCP - General Internal Medicine 08/18/19 Compa Guevara MD [address] [facility], [place] [id number] PCP - Attributed Provider 03/17/21 Provider, No Attributed, RESOURCE [address] 08/13/16 Rain Castle, RN [address] [facility], [place] [id number] Vault InstallerCold Working Supervisor Medicine 05/18/15 documented as of this encounter
--- OUTSIDE RECORDS SUMMARY | 2025-06-15 14:01 | XMS_ITS | Encounter Summary ---
Author Organization [facility] [employer] [facility] Address [address] [place] [address] [address] [place] [address] Care Team Providers Care Promotional Demonstrator Name Role Phone Compa Guevara MD Primary Care Provider [phone] Provider, No Attributed RESOURCE Unavailable Unavailable Rain Castle RN Unavailable [phone] Compa Guevara MD Unavailable [phone] Reason for Visit * FCC PT (Routine) [...] Compa Guevara MD [address] [facility] [place] [address] Phone: tel: fax: [facility] [address] [place] [address] Phone: tel: fax: Referral ID Status Reason Start Date Expiration Date Visits Requested Visits Authorized [id number] Authorized Continuity of Care 05/19/2025 09/22/2025 99 99 Encounter Details Date Type Department Care Team (Latest Contact Info) Description 06/15/2025 2:01 PM CDT - 06/15/2025 11:59 PM CDT Hospital Encounter [facility] PHYSICAL THERAPY [address] [facility] [place] [address] Compa Guevara MD [address] [place] [address] Tanner Alvarado, DIRECTOR [employer] [address] [facility] [place] [address] Unsteadiness Discharge Disposition: Still a Patient Social [...] often do you attend chur ch or christianity services? Never 11/19/2023 Do you belong to any clubs o r organizations such as jew groups, unions, fraternal or athletic groups, or [...] Date Recorded PHQ-2 Total 3 04/20/2025 [facility] of Occupat ional Health - Occupational Stress [...] any time in the past 12 m [facility], were you homeless or living [...] any time in the past 12 m [facility], were you homeless or living in a [facility]ci (including now)? No 04/20/2025 [facility] Utilities Answer Date Recorded In the [...] DAILY (PLEASE CALL TO SCHEDULE FOLLOW UP [phone]) 90 tablet 3 5 DULoxetine (CYMBALTA) 60 [...] Vitamin C 40mg, Grape Seed Extract 26.3mg, [place] Fruit Extract 100mg, L-lysine 125mg OIL OF [...] nasal sprayIndications:Pl ugged feeling in ear, right [place] 2 sprays into each nostril 1 time [...] this encounter Progress Notes * Tanner Alvarado, DIRECTOR [employer] - 06/15/2025 2:17 PM CDT Outpatient Physical Therapy Daily Treatment Note Patient Name: Ace Domínguez : 1950 MR#: [id number] Referring Provider: Compa Guevara MD Therapy Session [...] Info) Description 07/06/2025 4:00 PM CDT Appointment [facility] PHYSICAL THERAPY [address] [address] [place] [address] Compa Guevara MD [address] [facility] [place] [address] Miranda Rose, PT [address] [facility] [place] [address] 07/20/2025 10:00 AM CDT Office Visit [facility] [address] [address] [place] [address] Addi Matias, DPM [address] [address] [place] [address] Discharge Disposition: Home, Self Care 07/22/2025 9:45 AM CDT Appointment [facility] PHYSICAL THERAPY [address] [address] [place] [address] Compa Guevara MD [address] [facility] [place] [address] Miranda Rose, PT [address] [facility] [place] [address] 07/28/2025 9:30 AM UNDERWRITER Office Visit [facility] [address] [place] [address] Compa Guevara MD [address] [place] [address] Discharge Disposition: Home, Self Care 07/28/2025 3:15 PM UNDERWRITER Appointment [facility] PHYSICAL THERAPY [address] [facility] [address] [place] [address] Compa Guevara MD [address] [place] [address] Miranda Rose, PT [address] [place] [address] 08/03/2025 9:15 AM UNDERWRITER Appointment [facility] PHYSICAL THERAPY [address] [address] [place] [address] Compa Guevara MD [address] [place] [address] Miranda Rose, PT [address] [place] [address] 2025 2:30 PM UNDERWRITER Appointment [facility] PHYSICAL THERAPY [address] [address] [place] [address] Compa Guevara MD [address] [place] [address] Miranda Rose, PT [address] [place] [address] 08/13/2025 9:00 AM UNDERWRITER Appointment [facility] PHYSICAL THERAPY [address] [address] [place] [address] Compa Guevara MD [address] [place] [address] Miranda Rose, PT [address] [place] [address] 10/18/2025 8:30 AM UNDERWRITER Ancillary Procedure [facility] [address] [facility] [address] [place] [address] Discharge Disposition: Home, Self Care documented as of this encounter Goals Goal Patient Goal Type Associated Problems Recent Progress Patient-Stated? Author DIET - REDUCE SUGAR INTAKE Diet Not on track( 10:54 AM CDT) No Rain Castle APRN-CNP DIET - KEEP A DAILY FOOD DIARY Diet Yes Mariangel Virk, RN Note: 07/17/22 Use a food journal or [employer] mariela to document all food eaten [...] 10:00 AM CDT) No Radigan, Rain A, RETAIL LOAN ORIGINATOR-PERSONNEL RECRUITER documented as of this encounter Visit Diagnoses Not on filedocumented in this encounter Care Teams Promotional Demonstrator Relationship Specialty Start Date End Date Compa Guevara MD [address] [facility], [place] [id number] PCP - General Internal Medicine 08/18/19 Compa Guevara MD [address] [facility] [id number] PCP - Attributed Provider 03/17/21 Provider, No Attributed, RESOURCE [address] 08/13/16 Rain Castle, RN [address] [place] [address] Cutter FinisherVamp Maker Medicine 05/18/15 documented as of this encounter
--- OUTSIDE RECORDS SUMMARY | 2025-06-18 10:30 | XMS_ITS | Encounter Summary ---
Author Organization [facility] [employer] [facility] Address [address] [place] [address] [address] [place] [address] Care Team Providers Care Bridge Maintainer Name Role Phone Compa Guevara MD Primary Care Provider [phone] Provider, No Attributed RESOURCE Unavailable Unavailable Rain Castle RN Unavailable [phone] Compa Guevara MD Unavailable [phone] Reason for Visit * Reason Comments Obstructive Sleep Apnea Encounter Details Date Type Department Care Team (Late st Contact Info) Description 06/18/2025 10:30 AM CDT Office [place] [facility]ULMONOLOGY CL[facility]IC [address] [place] [address] Luis Duran DO [address] [facility] [address] [place] [address] SARATH on CPAP (Primary Dx) Discharge Disposition: Home, Self Care Social History Tobacco Use Types Packs/Day Years [...] 11/19/2023 How often do you attend chur or spiritism services? Never 11/19/2023 Do you belong to any clubs o r organizations such as mosque groups, unions, fraternal or athletic groups, or [...] Answer Date Recorded PHQ-2 Total 3 04/20/2025 [facility]ational Stress Questionnaire Answer [...] any time in the past 12 m ont, were you homeless or living in a [...] any time in the past 12 m ont, were you homeless or living in a senior living (including now)? No 04/20/2025 [facility] Utilities Answer Date Recorded In the past 12 months has th e electric, gas, oil, or water company threatened to shut off services in your home? No 04/20/2025 Abuse/Neglect Answer Date Recorded Do you have current concerns about any past or present abuse and neglect? No 06/18/2025 Does the patient display any signs or symptoms of abuse or neglect? No 06/18/2025 Education Answer Date Recorded What is the [...] on file documented as of this encounter Last Filed Vital Signs Vital Sign Reading Time Taken Comments Blood Pressure 164/72 06/18/2025 10:00 AM CDT Pulse 81 06/18/2025 10:00 AM CDT Temperature 36.7 C (98 F) 06/18/2025 10:00 AM CDT Respiratory Rate - - Oxygen Saturation 92% 06/18/2025 10: 00 AM CDT Inhaled Oxygen Concentration - - Weight 115.6 kg (254 lb 12.8 oz) 2024 10:00 AM CDT Height - - Body Mass Index 41.13 08/03/2024 11:20 AM FRONT OFFICE MEDICAL ASSISTANT documented in this encounter Functional Status * Is the person deaf or does he/she have serious difficulty hearing? Answer Date of Assessment Author No 02/04/2020 4:08 PM CDT Shelia Navas RN * Is this person blind or does he/she have difficulty seeing even when wearing glasses? Answer Date of Assessment Author No 02/04/2020 4:08 PM CDT Shelia Navas RN * Do you have difficulty with walking, [...] Elton Bashir RN documented in this encounter Progress Notes * DuranLuis nguyen, - 06/18/2025 1:05 PM CDT Pulmonary/Sleep Clinic--Followup Visit Impression/Recommendations: Patient continues to demonstrate improved compliance to her CPAP device with improvement in her daytime hypersomnia. I believe she would benefit from its continued use. Will refill supplies on current settings to her preferred DME provider. Follow-up in 1 year with compliance report. 1. SARATH on CPAP (Primary) SUBJECTIVE: Ace Domínguez is a 74yr old female who we are seeing in the [place] sleep clinic for followupof SARATH diagnosed by PSG. Ace Penny is currently on CPAP (AutoSet 9/13 cmH2O). Review of the recent data shows compliance of 57% (>=4h). Her overall compliance is 87% which is significantly improved compared to prior. Witha residual AHI of 1.9/h. Current Total Whiting Score: 9. Patient continues to work on her compliance and is wearing her CPAP device on a more consistent basis. Her daytime fatigue has improved in this regard as evidenced by reduced ESS score in the office today. She performs regular maintenance of her CPAP device with so clean machine. She is replacing her equipment at appropriate intervals. Denies issues with her interface. She also denies respiratory symptoms such as cough, wheezing or shortness of breath or nighttime. The patient also denies sleep paralysis, cataplexy, hypnagogic hallucinations, morning headaches, nasal congestion, or RLS symptoms. I have reviewed the patient's medical history in detail and updated the computerized patient record. PMH: has a past medical history of Allergy, unspecified not elsewhere classified (1994, 2012, 1989,2008), Arthritis (1996), C[facility] arthritis (02/26/2015), Colon polyp (2009), Depression (1985), Encounter for therapeutic drug monitoring (07/17/2017), Essential hypertension (06/18/2017), Fasting hyperglycemia (12/17/2018), HTN (hypertension) (1997), Hypercholesterolemia (1997), Mixed hyperlipidemia (06/18/2017), Obesity (1979), SARATH (obstructive sleep apnea), and Wrist pain (02/26/2015). She has no past medical history of At high risk for breast cancer, Breast cancer (HCC), Cervical cancer (HCC), Colon cancer (HCC), Endometrial cancer (HCC), Family history of malignant hyperthermia, Lymphoma (HCC), Ovarian cancer (HCC), or Skin cancer. ALLERGIES: Ofloxacin, Paxil [paroxetine], Simvastatin, and Sulfa drugs MEDS: Current Outpatient Medications Medication buPROPion (WELLBUTRIN XL) 150 mg tablet (24 hr) DULoxetine (CYMBALTA) 60 mg capsule rosuvastatin (CRESTOR) 5 mg tablet amLODIPine (NORVASC) 5 mg tablet semaglutide (OZEMPIC, 0.25 OR 0.5 MG/DOSE,) 2 mg/3 mL subcutaneous injection solution (pen) esomeprazole (NEXIUM) 40 mg capsule hydroCHLOROthiazide 25 mg tablet losartan 100 mg tablet melatonin 10 mg capsule ibuprofen-diphenhydrAMINE (ADVIL PM) 200-38 mg tablet MISC NATURAL PRODUCTS PO ubiquinol (COENZYME Q10) 100 MG CAPS capsule MISC NATURAL PRODUCTS PO OIL OF OREGANO PO Menaquinone-7 (VITAMIN K2 PO) Multiple Vitamins-Minerals (ICAPS) TABS QUERCETIN PO diphenhydrAMINE-acetaminophen (TYLENOL PM) 25-500 mg tablet vitamin D, cholecalciferol, 100 MCG (4000 UT) CAPS ELEMENTAL MAGNESIUM PO fluticasone (FLONASE) 50 mcg/spray nasal spray FIBER PO acetaminophen (TYLENOL) 500 mg tablet Kvmucmbqujh-Pxqdsvgky-Rco C-Mn (GLUCOSAMINE-CHONDROITIN COMPLEX) capsule Probiotic Product (PROBIOTIC COLON SUPPORT) CAPS Lutein-Zeaxanthin 20-0.8 MG CAPS No current facility-administered medications for this visit. REVIEW of SYSTEMS: CONSTITUTIONAL: negative for excess weight loss or weight gain, fever or night sweats ENT: negative for epistaxis, sinus pain, nasal congestion, postnasal drainage ALLERGY AND IMMUNOLOGY: negative for hives, rashes, eczema HEMATOLOGICAL AND LYMPHATIC: negative for bleeding problems or blood clots RESPIRATORY: as per HPI CARDIOVASCULAR: negative for chest pain, orthopnea, PND, or edema GASTROINTESTINAL: no GE reflux, abdominal pain, change in bowel habits, melena MUSCULOSKELETAL: negative for joint pain, joint swelling or muscle pain EXAM: BP 164/72 Pulse 81 Temp 98 ??F (36.7 ??C) (Temporal) Wt 115.6 kg (254 lb 12.8 oz) SpO2 92% BMI 41.13 kg/m2 Body mass index is 41.13 kg/m??. GENERAL APPEARANCE: alert, well appearing, and in no distress EYES: pupils equal and reactive, extraocular eye movements intact NOSE: normal and patent, no erythema, discharge or polyps MOUTH: mucous membranes moist, pharynx normal without lesions NECK: supple, no significant adenopathy LYMPHATICS: no palpable lymphadenopathy, no hepatosplenomegaly CHEST: Clear to auscultation bilaterally HEART: RRR, normal S1, S2, no murmurs, rubs, or gallops ABDOMEN: soft, nontender, nondistended, no masses or organomegaly EXTREMITIES: no pedal edema, no clubbing or cyanosis Data: CPAP data: 06/18/2025 10:00 AM 12/04/2024 11:00 AM 06/22/2024 12:00 PM 12/19/2023 9:00 AM CPAP Download Pulm CPAP Download 05/10/2025-06/08/2025 10/27/2024-11/25/2024 05/16/2024- 06/14/2024 11/19/2023-12/18/2023 CPAP/BIPAP/VPAP Settings 06/05- 11 11 Median Leak 0.3 1.5 1.8 0.9 95th Percentile Leak 2.5 4.6 9.8 6.4 95th Percentile Pressure 11.4 12.1 AHI 1.9 2.9 2.7 4.8 Pulm % Days used > 4 Hours 57 57 27 57 Pulm Average Daily Use 5h45m 5h31m 3h10m 4h35m Total Whiting Score: 9 I spent a total of 25 minutes on the patient's care today including preparing for the visit, the visit, documentation, and follow-up care. This does not include any procedure time. Luis Duran DO PULMONARY, CRITICAL CARE, AND SLEEP MEDICINE [place] [facility] documented in this encounter Plan of Treatment Upcoming Encounters Date Type Department Care Team (Latest Contact Info) Description 07/06/2025 4:00 PM CDT Appointment [facility] PHYSICAL THERAPY [address] [address] [place] [address] Compa Guevara MD [address] [place] [address] Miranda Rose, PT [address] [place] [address] 07/20/2025 10:00 AM CDT Office Visit [facility] [address] [address] [place] [address] Addi Matias, DPM [address] [address] [facility] [address] Discharge Disposition: Home, Self Care 07/22/2025 9:45 AM CDT Appointment [facility] PH[facility]ICAL [facility] [address] [address] [place] [address] Compa Guevara MD [address] [place] [address] Miranda Rose, PT [address] [place] [address] 07/28/2025 9:30 AM FRONT OFFICE MEDICAL ASSISTANT Office [place] [facility] [place] [facility] [address] [place] [address] Compa Guevara MD [address] [place] [address] Discharge Disposition: Home, Self Care 07/28/2025 3:15 PM FRONT OFFICE MEDICAL ASSISTANT Appointment [facility] [address] [place] [address] Compa Guevara MD [address] [place] [address] Miranda Rose, PT [address] [place] [address] 08/03/2025 9:15 AM FRONT OFFICE MEDICAL ASSISTANT Appointment [facility] PH[facility] [address] [facility] [address] [place] [address] Compa Guevara MD [address] [place] [address] Miranda Rose, PT [address] [place] [address] 2025 2:30 PM FRONT OFFICE MEDICAL ASSISTANT Appointment [facility] [address] [facility] [address] [place] [address] Compa Guevara MD [address] [place] [address] Miranda Rose, PT [address] [place] [address] 08/13/2025 9:00 AM FRONT OFFICE MEDICAL ASSISTANT Appointment [facility] [address] [place] [address] Compa Guevara MD [address] [place] [address] Miranda Rose, PT [address] [place] [address] 10/18/2025 8:30 AM FRONT OFFICE MEDICAL ASSISTANT Ancillary Procedure [facility] MARTIN [address] [place] [id number] Discharge Disposition: Home, Self Care documented as of this encounter Goals Goal Patient Goal Type Associated Problems Recent Progress Patient-Stated? Author DIET - REDUCE SUGAR INTAKE Diet Not on track( 10:54 AM CDT) No Rain Castle APRN-CNP DIET - KEEP A DAILY FOOD DIARY Diet Yes Mariangel Virk, RN Note: 07/17/22 Use a food journal or myRete It mariela to document all food eaten [...] lb 12.8 oz)( 5 10:00 AM CDT) Rain Park, ESTHETICIAN PERMANENT MAKEUP ARTIST-SANITATION DIRECTOR documented as of this encounter Visit Diagnoses Diagnosis SARATH on CPAP- Primary Obstructive sleep apnea (adult) (pediatric) documented in this encounter Care Teams Bridge Maintainer Relationship Specialty Start Date End Date Compa Guevara MD [address] [place] [address] PCP - General Internal Medicine 08/18/19 Compa Guevara MD [address] [place] [address] PCP - Attributed Provider 03/17/21 Provider, No Attributed, RESOURCE [address] 08/13/16 Rain Castle, RN [address] [facility] [place] [address] Vibration TechnicianCake Press Operator Medicine 05/18/15 documented as of this encounter
--- OUTSIDE RECORDS SUMMARY | 2025-06-25 14:43 | XMS_ITS | Encounter Summary ---
Author Organization [facility] [employer] [facility] Address [address] [place] [address] [address] [place] [address] Care Team Providers Care Zoology Professor Name Role Phone Compa Guevara MD Primary Care Provider [phone] Provider, No Attributed RESOURCE Unavailable Unavailable Rain Castle RN Unavailable [phone] Compa Guevara MD Unavailable [phone] Reason for Visit * FCC PT (Routine) [...] PROC Compa Guevara MD [address] [facility] [address] Phone: tel: fax: [facility] [address] [place] [address] Phone: tel: fax: Referral ID Status Reason Start Date Expiration Date Visits Requested Visits Authorized [id number] Authorized Continuity of Care 05/19/2025 09/22/2025 99 99 Encounter Details Date Type Department Care Team (Latest Contact Info) Description 06/25/2025 2:43 PM CDT - 06/25/2025 11:59 PM CDT Hospital Encounter [facility] PHYSICAL THERAPY [address] [facility] [place] [address] Compa Guevara MD [address] [place] [address] Miranda Rose, PT [address] [place] [address] Unsteadiness Discharge Disposition: Still a Patient Social [...] often do you attend chur ch or mu-ism services? Never 11/19/2023 Do you belong to any clubs o r organizations such as scientologist groups, unions, fraternal or athletic groups, or [...] Answer Date Recorded PHQ-2 Total 3 04/20/2025 [facility] - Occupational [...] place to sleep or slept in a penitentiary (including now)? No 11/19/2023 Housing Stability Vital Sign Answer Henrik e Recorded In the last 12 months, was t here a time when you were not able to pay the mortgage or rent on time? No 09/02/2024 In the past 12 months, how m any times have you moved where you were living? 0 09/02/2024 At any time in the past 12 m [facility], were you homeless or living in a penitentiary (including now)? No 09/02/2024 Hunger Vital Sign [...] any time in the past 12 m [facility], were you homeless or living in a penitentiary (including now)? No 04/20/2025 [facility] Utilities Answer Date Recorded In the [...] DAILY (PLEASE CALL TO SCHEDULE FOLLOW UP [phone]) 90 tablet 3 5 DULoxetine (CYMBALTA) 60 [...] Vitamin C 40mg, Grape Seed Extract 26.3mg, [place] Fruit Extract 100mg, L-lysine 125mg OIL OF [...] nasal sprayIndications:Pl ugged feeling in ear, right [place] 2 sprays into each nostril 1 time [...] Patient Name: Ace Domínguez : 1950 MR#: [id number] Referring Provider: Compa Guevara MD Therapy Session [...] Info) Description 07/06/2025 4:00 PM CDT Appointment [facility] PHYSICAL THERAPY [address] [place] [address] [place] [address] Compa Guevara MD [address] [place] [address] Miranda Rose, PT [address] [place] [address] 07/20/2025 10:00 AM CDT Office Visit [facility] [address] [place] [address] [place] [address] Addi Matias, DPM [address] [place] [address] [place] [address] Discharge Disposition: Home, Self Care 07/22/2025 9:45 AM CDT Appointment [facility] PHYSICAL THERAPY [address] [place] [address] [place] [address] Compa Guevara MD [address] [place] [address] Miranda Rose, PT [address] [place] [address] 07/28/2025 9:30 AM STONE BANKER Office Visit [place] [facility] [address] [place] [address] Compa Guevara MD [address] [place] [address] Discharge Disposition: Home, Self Care 07/28/2025 3:15 PM STONE BANKER Appointment [facility] PHYSICAL THERAPY [address] [place] [address] [place] [address] Compa Guevara MD [address] [place] [address] Miranda Rose, PT [address] [place] [address] 08/03/2025 9:15 AM STONE BANKER Appointment [facility] PHYSICAL THERAPY [address] [place] [address] [place] [address] Compa Guevara MD [address] [place] [address] Miranda Rose, PT [address] [place] [address] 2025 2:30 PM STONE BANKER Appointment [facility] PHYSICAL THERAPY [address] [place] [address] [place] [address] Compa Guevara MD [address] [place] [address] Miranda Rose, PT [address] [place] [address] 08/13/2025 9:00 AM STONE BANKER Appointment [facility] PHYSICAL THERAPY [address] [place] [address] [place] [address] Compa Guevara MD [address] [place] [address] Miranda Rose, PT [address] [place] [address] 10/18/2025 8:30 AM STONE BANKER Ancillary Procedure [facility] [place] [address] [place] [id number] Discharge Disposition: Home, Self Care documented as of this encounter Goals Goal Patient Goal Type Associated Problems Recent Progress Patient-Stated? Author DIET - REDUCE SUGAR INTAKE Diet Not on track( 10:54 AM CDT) No Rain Castle APRN-CNP DIET - KEEP A DAILY FOOD DIARY Diet Yes Mariangel Virk, RN Note: 07/17/22 Use a food journal or [employer] It mariela to document all food eaten [...] 5 10:00 AM CDT) No Rain Castle, SHOTBLAST OPERATOR-DIRECTOR MEDICAID documented as of this encounter Visit Diagnoses Not on filedocumented in this encounter Care Teams Zoology Professor Relationship Specialty Start Date End Date Compa Guevara MD [address] [facility] [address] PCP - General Internal Medicine 08/18/19 Compa Guevara MD [address] [facility], [place] [address] PCP - Attributed Provider 03/17/21 Provider, No Attributed, RESOURCE [address] 08/13/16 Rain Castle, RN [address] [facility], [place] [id number] Administrative Support SpecialistRubber Boots And Shoes Repairer Medicine 05/18/15 documented as of this encounter
--- OUTSIDE RECORDS SUMMARY | 2025-06-28 09:00 | XMS_ITS | Encounter Summary ---
Author Organization [facility] [employer] [facility] Address [address] [place] [address] [address] [place] [address] Care Team Providers Care Envelope Machine Operator Name Role Phone Compa Guevara MD Primary Care Provider Provider, No Attributed RESOURCE Unavailable Unavailable Rain Castle RN Unavailable [phone] Compa Guevara MD Unavailable [phone] Reason for Visit * FCC PT (Routine) [...] [address] [facility] [place] [address] Phone: tel: fax: [facility] [address] [place] [address] Phone: tel: fax: Referral ID Status Reason Start Date Expiration Date Visits Requested Visits Authorized [id number] Authorized Continuity of Care 05/19/2025 09/22/2025 99 99 Encounter Details Date Type Department Care Team (Latest Contact Info) Description 06/28/2025 9:00 AM CDT - 06/28/2025 11:59 PM CDT Hospital Encounter [facility] PHYSICAL THERAPY [address] [facility] [place] [address] Compa Guevara MD [address] [place] [address] Miranda Rose, PT [address] [place] [address] Unsteadiness Discharge Disposition: Still a Patient Social [...] any clubs o r organizations such as rastafari groups, unions, fraternal or athletic groups, or [...] Date Recorded PHQ-2 Total 3 04/20/2025 [facility] - Occupational [...] to sleep or slept in a senior care (including now)? No 11/19/2023 Housing Stability Vital Sign Answer Henrik e Recorded In the last 12 months, was t here a time when you were not able to pay the mortgage or rent on time? No 09/02/2024 In the past 12 months, how m any times have you moved where you were living? 0 09/02/2024 At any time in the past 12 m [facility], were you homeless or living in a senior care (including now)? No 09/02/2024 Hunger Vital Sign [...] any time in the past 12 m [facility], were you homeless or living in a senior care (including now)? No 04/20/2025 [facility] Utilities Answer Date Recorded In the past [...] DAILY (PLEASE CALL TO SCHEDULE FOLLOW UP [phone]) 90 tablet 3 5 DULoxetine (CYMBALTA) 60 [...] Vitamin C 40mg, Grape Seed Extract 26.3mg, [place] Fruit Extract 100mg, L-lysine 125mg OIL OF [...] nasal sprayIndications:Pl ugged feeling in ear, right [place] 2 sprays into each nostril 1 time [...] Progress Notes * Miranda Rose, PT - 06/28/2025 9:37 AM CDT Outpatient Physical Therapy Progress Note Patient Name: Ace Domínguez : 1950 MR#: [id number] Referring Provider: Compa Guevara MD Therapy Session Reason for therapy: Unsteadiness Visit Number: 9 Medicare Certification: 05/19/25 through 08/11/25 Therapy Diagnosis: decreased functional strength, decreased balance, decreased endurance Subjective: Bethany reports that she is doing well. She feels like she is doing a bit better. She doesn't feellike she needs her cane as much at home. Pain Pain Scale Used: 0-10 Pain Rating: doesn't rate today Nature of pain: Comment: took Advil Treatment: Therapeutic Activity (40 minutes): -Nustep x7 minutes Level 4 -Reassessment of patient's goals. Initial 5 times sit-stand 15.7 seconds Norms: 12.9 sec Current 5 times sit-stand 12.5 seconds Initial Timed up and Go (TUG): 11.7 sec Norms: 9 sec Current TU.4 seconds Initial 2 minute walk test: 334 ft Norms: 493 ft Current 2 minute walk test: 419 ft Initial SLS: Right: 2 seconds Left: 2 seconds Current SLS: Right: 11 seconds Left: 5 seconds Initial Functional gait assessment: FUNCTIONAL GAIT ASSESSMENT: Gait Level Surfaces: 3. [...] uses assistive device. Gait and Pivot Turn: 3. Normal-Pivot turns safely within 3 seconds and stops quickly with no loss of balance. Step Over Obstacle: 2. Mild impairment-Is able to step over one shoe box (11.43 cm [4.5 in] total height) without changing gait speed; [...] or less indicates likely fallwithin 6 months. Assessment: Patient verbalizes understanding of home exercise program? yes-continue with current program Goals: Short Term Goals: To be met within 6 weeks: 1. Patient will be able to participate in a HEP for general strengthening in order to help with herfunctional mobility MET 2. Patient will be able to improve her 5x sit to stand to 12 seconds or less in order to improve functional strength MET 3. Patient will be able to improve her 2 minute walk to 350 ft or more without AD in order to improve overall endurance MET 4. Patient will be able to improve her TUG to 10 sec or less in order to decrease fall risk MET 5. Patient will be able to ambulate on uneven surface with SPC and no loss of balance MET Video Manager Goals: To be met within 12 weeks: 1. Patient will be able to improve her FGA to 23 or more in order to decrease her fall risk NOT MET 2. Patient will be able to perform single leg stance 5-10 bilaterally in order to improve balance MET 3. Patient will be able to participate in 6 minute walk test without AD in order to improve overallendurance NOT ASSESSED 4. Patient will be able to participate in an advanced HEP in order to maintain her strength and balance gained in therapy NOT MET Comments: Ace Penny has met 5/5 short term goals and 1/4 termite control service representative goals. She has significantly improved her overall strength and endurance. She has improved her static balance, but dynamic balance has not improved much. She would continue to benefit from skilled therapy to work on her dynamic balance and endurance. Plan: Continue skilled PT services Comment: Will continue at 1-2x per week for another 4-6 weeks. Session Summary: Total timed: 40 minutes Total untimed: 0 minutes Total treatment time: 40 minutes documented in this encounter Plan of Treatment Upcoming Encounters Date Type Department Care Team (Latest Contact Info) Description 07/06/2025 4:00 PM CDT Appointment [facility] PHYSICAL THERAPY [address] [place] [address] Compa Guevara MD [address] [place] [address] Miranda Rose PT [address] [place] [address] 07/20/2025 10:00 AM CDT Office Visit [facility] [address] [place] [address] [place] [address] Addi Matias, DPM [address] [place] [address] [place] [address] Discharge Disposition: Home, Self Care 07/22/2025 9:45 AM CDT Appointment [facility] PHYSICAL THERAPY [address] [place] [address] [place] [address] Compa Guevara MD [address] [place] [address] Miranda Rose, PT [address] [place] [address] 07/28/2025 9:30 AM LUMBER PLANER [facility] [address] [place] [address] Compa Guevara MD [address] [place] [address] Discharge Disposition: Home, Self Care 07/28/2025 3:15 PM LUMBER PLANER Appointment [facility] PHYSICAL THERAPY [address] [place] [address] [place] [address] Compa Guevara MD [address] [place] [address] Miranda Rose, PT [address] [place] [address] 08/03/2025 9:15 AM LUMBER PLANER Appointment [facility] PHYSICAL THERAPY [address] [facility] [place] [address] Compa Guevara MD [address] [place] [address] Miranda Rose, PT [address] [place] [address] 2025 2:30 PM LUMBER PLANER Appointment [facility] PHYSICAL THERAPY [address] [facility] [place] [address] Compa Guevara MD [address] [place] [address] Miranda Rose, PT [address] [place] [address] 08/13/2025 9:00 AM LUMBER PLANER Appointment [facility] PHYSICAL THERAPY [address] [place] [address] Compa Guevara MD [address] [place] [address] Miranda Rose, PT [address] [place] [address] 10/18/2025 8:30 AM LUMBER PLANER Ancillary Procedure [facility] [address] [place] [address] Discharge Disposition: Home, Self Care documented as of this encounter Goals Goal Patient Goal Type Associated Problems Recent Progress Patient-Stated? Author DIET - REDUCE SUGAR INTAKE Diet Not on track( 022 10:54 AM CDT) [place], AJ-TRAIN BRAKER DIET - KEEP A DAILY FOOD DIARY Diet Yes Mariangel Virk, SENAIT Note: 07/17/22 Use a food journal or [employer] It mariela to document all food eaten [...] 022 10:54 AM CDT) No Rain Castle APRN-CNP Note: Every other day use bowflex and treadmill at home, increasing length and intensity gradually. HGB A1C < 7 Result Component 5.8( 5 8:25 AM CDT) No Mariangel Virk RN Note: 07/17/22 Weight < 90.719 kg (200 lb) Weight 115.6 kg (254 lb 12.8 oz)( 5 10:00 AM CDT) No Rain Castle APRN-CNP documented as of this encounter Visit Diagnoses Not on filedocumented in this encounter Care Teams Envelope Machine Operator Relationship Specialty Start Date End Date Compa Guevara MD [address] [facility] [address] PCP - General Internal Medicine 08/18/19 Compa Guevara MD [address] [place] [address] PCP - Attributed Provider 03/17/21 Provider, No Attributed, RESOURCE [address] 08/13/16 Rain Castle, RN [address] [place] [address] Stereo Equipment RepairerAssistant Community Manager Medicine 05/18/15 documented as of this encounter
[2025-07-04] VITALS (8 sets, daily range): BP systolic 135–138; BP diastolic 63–75; PULSE 67–78; RESP 15–19; TEMP 36.8–37; O2SAT 91–98; BMI 41.6
--- NOTE | 2025-07-04 00:09 | ED.GENADULT ---
HPI - General Adult General Chief complaint: Dizziness/Vertigo Stated complaint: dizzy Time Seen by Provider: 07/04/25 00:09 History of Present Illness HPI narrative: Pt woke up today around 0400 with vertigo. Could walk with cane but nausea and dizziness got worse as the day went on. Pt was seen in the ED earlier today for this issue and was sent home with Meclizine, Zofran, and Meclizine. Pt has been unable to keep medication down due to nausea and vomiting. 74-year-old woman presenting to emergency department with complaint of dizziness. Woke about 20 hours ago with dizziness. Apparently had rolled over in bed and had abrupt onset of spinning vertiginous symptoms. Does have a diagnosis of vertigo and this appears similar. Sounds like had extensive evaluation about 9 months ago related to this episode. was seen in this emergency department earlier today and discharged with Zofran meclizine and course of prednisone. has continued to have dizziness and can not keep anything down vomiting. Is starting to get a little bit of a headache. 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 Wears dark Shade over her left eye glasses. to result in less blurry vision. She says she it does not feel dizzy as long she does not move but when she moves her head side to side or lifts it from the pillow she has had with dizziness. Related Data Home Medications ?Medication ?Instructions ?Recorded ?Confirmed amlodipine 5 mg tablet 5 mg PO DAILY 07/03/25 07/04/25 bupropion HCl 100 mg tablet 100 mg PO TID 07/03/25 07/04/25 duloxetine 60 mg capsule,delayed 60 mg PO DAILY 07/03/25 07/04/25 release sprinkle (Drizalma Sprinkle) hydrochlorothiazide 25 mg tablet 25 mg PO DAILY 07/03/25 07/04/25 losartan 25 mg tablet (Cozaar) 25 mg PO DAILY 07/03/25 07/04/25 omeprazole 20 mg capsule,delayed 20 mg PO BID 07/03/25 07/04/25 release rosuvastatin 5 mg tablet 5 mg PO DAILY 07/03/25 07/04/25 Previous Rx's ?Medication ?Instructions ?Recorded meclizine 25 mg tablet 25 mg PO TID PRN vertigo #15 tabs 07/03/25 ondansetron HCl 4 mg tablet 4 mg PO Q8H PRN nausea and 07/03/25 vomiting #10 tabs prednisone 20 mg tablet 60 mg (3 x 20 mg) PO DAILY 3 days 07/03/25 #9 tabs diazepam 5 mg tablet (Valium) 5 mg PO BID PRN dizziness #8 tabs 07/04/25 Allergies Allergy/AdvReac Type Severity Reaction Status Date / Time simvastatin Allergy Intermediate Verified 07/04/25 00:01 paroxetine Allergy Unknown Verified 07/04/25 00:01 Sulfa (Sulfonamide Allergy Unknown Verified 07/04/25 00:01 Antibiotics) Review of Systems Status of ROS: Reports: 6 or more systems reviewed and unremarkable except as noted in History and below [facility] Social History Smoking Status: Never smoker How often do you have a drink containing alcohol: never AUDIT-C Alcohol total score: 0 Non-prescribed substance use: denies use Exam Narrative: Exam Narrative: Pleasant. NAD. Head is atraumatic. Left eye glasses with dark initiated inserted into her lenses. Looking up and down is what subjectively generate worsening dizziness. Head looks atraumatic. Heart in regular rate and rhythm. Breathing easily Extremities well perfused without edema. Moving all extremities without difficulty Const: Vital Signs, click to edit/add: Vital Signs - 24 hr 07/04/25 00:01 07/04/25 01:00 Temperature 98.6 F Pulse Rate [Left P ulse Oximeter] 78 Respiratory Rate 19 Blood Pressure [Ri ght Upper Arm] 135/75 Pulse Oximetry 95 91 Oxygen Delivery Me thod Room Air Room Air Oxygen Flow Rate 1 Documenting provider has reviewed patient's vital signs: yes Course Vital Signs Vital signs: Initial Vital Signs Temperature 98.6 F 07/04/25 00:01 Temperature Source Temporal Artery Scan 07/04/25 00:01 Pulse Rate 78 07/04/25 00:01 Respiratory Rate 19 07/04/25 00:01 Blood Pressure 135/75 07/04/25 00:01 Blood Pressure Mean 95 07/04/25 00:01 Blood Pressure Position Supine 07/04/25 00:01 Pulse Oximetry 95 07/04/25 00:01 Oxygen Delivery Method Room Air 07/04/25 00:01 Vital Signs Temperature 98.6 F 07/04/25 00:01 Pulse Rate 78 07/04/25 00:01 Respiratory Rate 19 07/04/25 00:01 Blood Pressure 135/75 07/04/25 00:01 Pulse Oximetry 95 07/04/25 00:01 Oxygen Delivery Method Room Air 07/04/25 00:01 Temperature 98.2 F 07/04/25 04:29 Pulse Rate 68 07/04/25 04:28 Respiratory Rate 17 07/04/25 04:28 Blood Pressure 138/63 07/04/25 04:28 Pulse Oximetry 98 07/04/25 04:28 Oxygen Delivery Method Room Air 07/04/25 01:00 Oxygen Flow Rate 1 07/04/25 01:00 Medications Administered Medications: Discontinued Medications Generic Name Dose Route Start Last Admin Trade Name Liss PRN Reason Stop Dose Admin Diazepam 5 mg 07/04/25 00:11 07/04/25 00:35 Diazepam 5 Mg/Ml Inj IV 07/04/25 00:12 5 mg ONCE ONE Administration Sodium Chloride 1,000 mls @ 1,000 mls/hr 07/04/25 00:11 07/04/25 02:32 0.9 % Sodium Chloride 1000 Ml IV 07/04/25 01:10 Infused .Q1H ONE Infusion Metoclopramide HCl 10 mg/ 102 mls @ 306 mls/hr 07/04/25 00:11 07/04/25 01:30 Sodium Chloride IVPB 07/04/25 00:12 Infused ONCE ONE Infusion Medical Decision Making MDM Narrative Medical decision making narrative: This does appear to be exacerbation of underlying known vertiginous symptoms and not new CVA/stroke pathology. Verified in regular cardiac rhythm. I think will treat symptoms at this point. IV initiated. Given a dose of Valium. More specifically for nausea than also metoclopramide. Monitor on color television console monitor over time in the emergency department without event Has been able to sleep in on reassessment is markedly improved. She feels well for discharge See patient discharge plan for further discussion I am happy you are feeling better. Stay well-hydrated. Take care in transitions. Yes, I think it would be a good idea to discuss with physical therapy this dizziness. They can help you with some maneuvers. I would continue to take medication as prescribed from 1st visit but also adding some medicine that you received here today. Can be sedating but can be very helpful with dizziness. Sending Valium, also known as diazepam, to your pharmacy if needed. Discharge Plan Discharge Clinical Impression: Vertigo Patient Disposition: Home w/ Parent or Adult Condition: Improved Additional Instructions: I am happy you are feeling better. Stay well-hydrated. Take care in transitions. Yes, I think it would be a good idea to discuss with physical therapy this dizziness. They can help you with some maneuvers. I would continue to take medication as prescribed from 1st visit but also adding some medicine that you received here today. Can be sedating but can be very helpful with dizziness. Sending Valium, also known as diazepam, to your pharmacy if needed. Prescriptions: New diazepam [Valium] 5 mg tablet 5 mg PO BID PRN (Reason: dizziness) Qty: 8 0RF No Action hydrochlorothiazide 25 mg tablet 25 mg PO DAILY bupropion HCl 100 mg tablet 100 mg PO TID Rx Instructions: administer 6 hours apart omeprazole 20 mg capsule,delayed release(DR/EC) 20 mg PO BID rosuvastatin 5 mg tablet 5 mg PO DAILY losartan [Cozaar] 25 mg tablet 25 mg PO DAILY amlodipine 5 mg tablet 5 mg PO DAILY Drizalma Sprinkle 60 mg capsule, delayed rel sprinkle 60 mg PO DAILY meclizine 25 mg tablet 25 mg PO TID PRN (Reason: vertigo) Qty: 15 0RF ondansetron HCl 4 mg tablet 4 mg PO Q8H PRN (Reason: nausea and vomiting) Qty: 10 0RF prednisone 20 mg tablet 60 mg PO DAILY 3 Days Qty: 9 0RF Rx Instructions: days 11-21 of therapy Follow Up/Referrals: Provider,Not a Local [Primary Care Provider, Family Practice] Stand Alone Forms: PhytoCeuticath Info Instructions
[2025-07-04] MEDS: diazePAM 5 MG/ML inj IV (00:35)
[2025-07-04] MEDS: METOCLOPRAMIDE HCL 10 MG in 0.9 % SODIUM CHLORIDE 100 ml 100 ML 306 MG IVPB (00:35)
--- OUTSIDE RECORDS SUMMARY | 2025-07-04 00:55 | XMS_ITS | Clinical Summary ---
Author Organization [facility] [employer] [facility] Address [address] [place] [address] [address] [place] [address] Care Team Providers Care Commercial Lines Account Assistant Name Role Phone Compa Guevara MD Primary Care Provider [phone] Provider, No Attributed RESOURCE Unavailable Unavailable Rain Castle RN Unavailable [phone] Compa Guevara MD Unavailable [phone] Allergies Active Allergy Reactions Criticality Noted Date [...] nasal sprayIndications:P lugged feeling in ear, right [place] 2 sprays into each nostril 1 time [...] Vitamin C 40mg, Grape Seed Extract 26.3mg, Leighton Fruit Extract 100mg, L-lysine 125mg Active MISC [...] DAILY (PLEASE CALL TO SCHEDULE FOLLOW UP [phone]) 90 tablet 3 04/28/20 25 Active DULoxetine [...] therapy. Assessment & Plan (08/31/2016 5:24 PM PRESS WORKER HELPER): She is on duloxetine 30 mg daily. [...] efforts. Assessment & Plan (08/31/2016 5:18 PM PRESS WORKER HELPER): She's been losing weight which has helped [...] therapy. Assessment & Plan (08/31/2016 4:09 PM PRESS WORKER HELPER): Reviewed in SnapShot. BP Readings from Last [...] - 06/28/2025 11:59 PM CDT Hospital Encounter [facility] PH[facility] [address] [facility] [place] [address] Compa Guevara MD Crank, Sara, PT Unsteadiness Discharge Disposition: Still a Patient 06/25/2025 2:43 PM CDT - 06/25/2025 11:59 PM CDT Hospital Encounter [facility] PH[facility] [address] [place] [address] [place] [address] Compa Guevara MD Crank, Sara, PT Unsteadiness Discharge Disposition: Still a Patient 06/21/[address] [facility] [address] [facility] [address] [place] [address] Yulisa Gibbs LPN 06/18/2025 10:30 AM CDT Office Visit [facility] [address] [address] [place] [address] Luis Duran DO SARATH on CPAP (Primary Dx) Discharge Disposition: Home, Self Care 06/15/2025 2:01 PM CDT - 06/15/2025 11:59 PM CDT Hospital Encounter [facility] PH[facility]ICAL [facility] [address] [place] [address] [place] [address] Compa Guevara MD Erickson, Conner, SURGICAL ONCOLOGIST Unsteadiness Discharge Disposition: Still a Patient 06/08/2025 8:04 AM CDT - 06/08/2025 11:59 PM CDT Hospital Encounter [facility] PHYSICAL THERAPY [address] [place] [address] [place] [address] Compa Guevara MD Crank, Sara, PT Unsteadiness Discharge Disposition: Still a Patient 06/04/2025 8:17 AM CDT - 06/04/2025 11:59 PM CDT Hospital Encounter [facility] PHYSICAL [facility] [address] [place] [address] [place] [address] Compa Guevara MD Crank, Sara, PT Unsteadiness Discharge Disposition: Still a Patient 06/02/2025 8:32 AM CDT - 06/02/2025 11:59 PM CDT Hospital Encounter [facility] PH[facility]ICAL [facility] [address] [place] [place] [address] [place] [address] Compa Guevara, Miranda Dumont, PT Unsteadiness Discharge Disposition: Still a Patient 05/27/2025 8:57 AM CDT - 05/27/2025 11:59 PM CDT Hospital Encounter [facility] PHYSICAL [facility]Y [address] [place] [address] [place] [address] Compa Guevara MD Crank, Sara, PT Unsteadiness Discharge Disposition: Still a Patient 05/21/2025 9:14 AM CDT - 05/21/2025 11:59 PM CDT Hospital Encounter [facility] PH[facility] [address] [place] [place] [address] [place] [address] Compa Guevara MD Crank, Sara, PT Unsteadiness Discharge Disposition: Still a Patient 05/19/2025 8:52 AM CDT - 05/19/2025 11:59 PM CDT Hospital Encounter [facility] PH[facility] [address] [place] [address] [place] [address] Compa Guevara MD Crank, Sara, PT Unsteadiness Discharge Disposition: Still a Patient 04/28/2025 10:00 AM CDT Office Visit [place] [address] [facility] [address] [place] [address] Sari Domínguez, ASSOCIATE DIRECTOR REGULATORY AFFAIRS-CLEANER AND PRESSER Dysthymic disorder (Primary Dx); Anxiety; Fibromyalgia Discharge Disposition: Home, Self Care 04/27/2025 1:30 PM CDT [facility] [address] [facility] [place] [phone] Comap Guevara MD Unsteadiness (Primary Dx); Fall, initial encounter; Essential hypertension; Mixed hyperlipidemia; Controlled type 2 diabetes mellitus without complication, without long-term current use of insulin (HCC); Other depression Discharge Disposition: Home, Self Care 04/15/2025 Refill [facility] [address] [facility] [place] [address] Compa Guevara MD Refill Request from Last [...] week 11/19/2023 How often do you attend [facility] or mandaen services? Never 11/19/2023 Do you belong to any clubs o r organizations such as congregational groups, unions, fraternal or athletic groups, or [...] Answer Date Recorded PHQ-2 Total 3 04/20/2025 [facility] - Occupational [...] time in the past 12 m [facility], were you homeless or living in [...] time in the past 12 m [facility], were you homeless or living in a alf (including now)? No 04/20/2025 [facility] Utilities Answer Date Recorded In [...] cm (5' 6) 08/03/2024 11:2 0 AM PRESS WORKER HELPER Body Mass Index 41.13 08/03/2024 11:20 AM PRESS WORKER HELPER Plan of Treatment Upcoming Encounters Date Type Department Care Team (Latest Contact Info) Description 07/06/2025 4:00 PM CDT Appointment [facility] PHYSICAL THERAPY [address] [place] [address] Compa Guevara MD [address] [facility] [place] [address] Miranda Rose, PT [address] [facility] [place] [address] 07/20/2025 10:00 AM CDT Office Visit [facility] [address] [place] [address] [facility] [place] [address] Addi Matias, DPM [address] [place] [address] [facility] [place] [address] Discharge Disposition: Home, Self Care 07/22/2025 9:45 AM CDT Appointment [facility] [address] [place] [address] [facility] [place] [address] Compa Guevara MD [address] [place] [address] Miranda Rose, PT [address] [place] [address] 07/28/2025 9:30 AM PRESS WORKER HELPER Office Visit [facility] [address] [place] [address] Compa Guevara MD [address] [place] [address] Discharge Disposition: Home, Self Care 07/28/2025 3:15 PM PRESS WORKER HELPER Appointment [facility] PH[facility] [address] [place] [address] Compa Guevara MD [address] [place] [address] Miranda Rose, PT [address] [place] [address] 08/03/2025 9:15 AM PRESS WORKER HELPER Appointment [facility] PH[facility] [address] [place] [address] Compa Guevara MD [address] [place] [address] Miranda Rose, PT [address] [place] [address] 2025 2:30 PM PRESS WORKER HELPER Appointment [facility] [address] [place] [address] Compa Guevara MD [address] [place] [address] Miranda Rose, PT [address] [place] [address] 08/13/2025 9:00 AM PRESS WORKER HELPER Appointment [facility] PH[facility]ICAL [facility] [address] [facility] [address] [place] [address] Compa Guevara MD [address] [place] [address] Miranda Rose, PT [address] [place] [address] 10/18/2025 8:30 AM PRESS WORKER HELPER Ancillary Procedure [facility] [address] [place] [address] Discharge Disposition: Home, Self Care Health Maintenance [...] Note: 07/17/22 Use a food journal or Private[employer]iffe It mariela to document all food eaten [...] track( 022 10:54 AM CDT) No Rain Castel APRN-CNP Note: Every other day use bowflex and treadmill at home, increasing length and intensity gradually. HGB A1C < 7 Result Component 5.8( 5 8:25 AM CDT) No Mariangel Virk RN Note: 07/17/22 Weight < 90.719 kg (200 lb) Weight 115.6 kg (254 lb 12.8 oz)( 10:00 AM CDT) No Rain Castle APRN-CNP Medical Devices Implanted Type Area Clothes Drier Assembler Device Identifier Shelf Expiration Date Model / Serial / Lot Stnt Universa Soft 5fr 26cm N [id number] - [id number] Implanted:Qty: 1 on 12/03/2017 by Nehemiah Madden MD at [facility] 08/30/2020 [id number] / / [id number] Procedures Procedure Name Priority Date/Time Associated Diagnosis Comments GLYCATED HEMOGLOBIN Routine 02/17/2025 8 :25 AM CDT Controlled type 2 diabetes mellitus without complication, without long-term current use of insulin (HCC) GLUCOSE Routine 02/17/2025 8:25 AM CDT Controlled type 2 diabetes mellitus without complication, without long-term current use of insulin (HCC) MAMMOGRAM BALJEET DIGITAL SCREENING ABHILASH Routine 10/16/2024 7:37 AM PRESS WORKER HELPER Screening mammogram, encounter for LAB ONLY-COMPLETE BLOOD COUNT WITH DIFFERENTIAL Routine 08/28/2024 5:50 PM PRESS WORKER HELPER Dizziness COMPREHENSIVE METABOLIC PANEL Routine 08/28/2024 5:50 PM PRESS WORKER HELPER Dizziness ALBUMIN WITH ALBUMIN/CREATININE RATIO, RANDOM URINE Routine 07/30/2024 9:28 AM PRESS WORKER HELPER Controlled type 2 diabetes mellitus without complication, without long-term current use of insulin (HCC) LIPID PANEL Routine 07/30/2024 8:22 AM PRESS WORKER HELPER Mixed hyperlipidemia DEXA SCAN Routine 06/20/2020 2:27 PM CDT Post-menopausal from Last 3 Months or Most Recently Relevant to Health Maintenance Results * (ABNORMAL) GLYCATED HEMOGLOBIN (02/17/2025 8:25 AM CDT) Hgb A1C 5.8(H) <5.7 % 02/17/2025 8:58 AM CDT [facility] [address] [facility] Estimated Average Glucose 120 mg/dL 02/17/2025 8:58 AM CDT [place] [facility] [address] [facility] [place] Blood BLOOD SPECIMEN / Unknown Venipuncture / Unknown 02/17/2025 8:25 AM CDT 02/17/2025 8:28 AM CDT Narrative [facility] [address] [facility] [place] - 02/17/2025 8:58 AM [...] Compa Guevara MD LAB BLOOD Final Result [facility] [address] [facility] [address] [place] [address] * (ABNORMAL) GLUCOSE (02/17/2025 8:25 AM CDT) Glucose 103(H) 70 - 99 mg/dL 02/17/2025 12:45 PM CDT [facility] Fasting Yes Yes, No, Unknown 02/17/2025 12:45 PM CDT [facility] Blood BLOOD SPECIMEN / Unknown 02/17/2025 8:25 AM CDT 02/17/2025 8:28 AM CDT Compa Guevara MD LAB BLOOD Final Result [facility] [address] [place] [place] [address] * MAMMOGRAM BALJEET DIGITAL SCREENING ABHILASH (10/16/2024 7:37 AM PRESS WORKER HELPER) Anatomical Region Laterality Modality Breast Bilateral Mammography 10/20/2024 8:40 AM PRESS WORKER HELPER Narrative 10/20/2024 8:44 AM PRESS WORKER HELPER EXAM: MAMMOGRAM BALJEET DIGITAL SCREENING ABHILASH INDICATION: [...] Dennis Pisano MD on 10/20/2024 8:44 AM PRESS WORKER HELPER FDA Accredited Performing Facility: [address], [facility] [id number] Compa Guevara MD MAMMOGRAPHY Final Result * (ABNORMAL) COMPREHENSIVE METABOLIC PANEL (08/28/2024 5:50 PM PRESS WORKER HELPER) Glucose 116(H) 70 - 99 mg/dL 08/28/2024 6:12 PM PRESS WORKER HELPER [facility] 20 6 - 22 mg/dL 08/28/2024 6:12 PM PRESS WORKER HELPER [facility] Creatinine 0.90 0.55 - 1.02 mg/dL 08/28/2024 6:12 PM PRESS WORKER HELPER [facility] BUN/Creatinine Ratio 22.2 10.0 - 25.0 08/28/2024 6:[address] [facility] Sodium 145 136 - 145 meq/L 08/28/2024 6:[address] [facility] Potassium 4.2 3.5 - 5.1 meq/L 08/28/2024 6:[address] [facility] Chloride 107 98 - 109 meq/L 08/28/2024 6:[address] [facility] CO2 25 20 - 29 meq/L 08/28/2024 6:[address] [facility] Anion Gap with K 17 6 - 20 meq/L 08/28/2024 6:[address] [facility] Calcium 10.2 8.5 - 10.5 mg/dL 08/28/2024 6:[address] [facility] Protein Total 7.7 6.0 - 8.3 g/dL 08/28/2024 6:[address] [facility] Albumin 4.3 3.2 - 4.6 g/dL 08/28/2024 6:[address] [facility] Alkaline Phosphatase 94 40 - 150 U/L 08/28/2024 6:[address] [facility] AST - SGOT 29 <6 - 45 U/L 08/28/2024 6:[address] [facility] ALT - SGPT 19 <6 - 55 U/L 08/28/2024 6:[address] [facility] Bilirubin Total 0.2 0.2 - 1.2 mg/dL 08/28/2024 6:[address] [facility] Age 74 Years 08/28/2024 6:[address] [facility] eGFRcr() 68 >=60 mL/min/1.73 m2 08/28/2024 6:[address] [facility] Fasting Yes Yes, No, Unknown 08/28/2024 6:[address] [facility] Blood BLOOD SPECIMEN / Unknown 08/28/2024 5:50 PM PRESS WORKER HELPER 08/28/2024 5:52 PM PRESS WORKER HELPER Lorena KOO LAB BLOOD Final Result [facility] [address] [place] [address] * ALBUMIN WITH ALBUMIN/CREATININE RATIO, RANDOM URINE (07/30/2024 9:28 AM PRESS WORKER HELPER) Creatinine Urine 116.72 No Reference Range Established mg/dL 07/30/2024 1:26 PM [facility] Albumin mg/L 18.26 No Reference Range Established mg/L 07/30/2024 1:26 PM [facility] Albumin/Creati nine Ratio 16 <30 mg/g 07/30/2024 1:26 PM [facility] Urine VOIDED URINE SPECIMEN / Unknown Collection / Unknown 07/30/2024 9:28 AM PRESS WORKER HELPER 07/30/2024 9:28 AM PRESS WORKER HELPER Compa Guevara MD LAB NON BLOOD Final Result Performing Organization Address [facility] Co de Phone Number [facility] [address] [place] [phone] * LIPID PANEL (07/30/2024 8:22 AM PRESS WORKER HELPER) Cholesterol 168 <200 mg/dL 07/30/2024 1:16 PM [...] Unknown Venipuncture / Unknown 07/30/2024 8:22 AM PRESS WORKER HELPER 07/30/2024 8:23 AM PRESS WORKER HELPER Compa Guevara MD LAB BLOOD Final Result Performing Organization Address [facility]/ZIP Co de Phone Number [facility] [address] [place] [address] * DEXA SCAN (06/20/2020 2:27 PM CDT) Anatomical Region Laterality Modality Spine Diaphanography Narrative 06/21/2020 11:[address] [facility] DEXA Report [address], [address] [place] [address] Name: Ace Domínguez : 1950 AGE: [age] year old To: Compa Guevara [address] [place] [address] ORDERING PHYSICIAN: Compa Guevara ORDERING PHYSICIAN FAX: [phone] ORDER ID: [id number] DEXA SCAN 06/20/2020 1427 Order Dx: Post-Menopausal Technologist: MACK CSN: [id number] ZAYRA: [id number] PATIENT HISTORY: Risk Factors: Female, or heritage, [...] Advance Directives For more information, please contact: [phone] Documents on File Type Date Recorded Patient Emergency Telecommunications Dispatcher Expl anation Advance Directives and Living Will [...] 11:57 AM 12/08/2014 4:43 PM Care Teams Commercial Lines Account Assistant Relationship Specialty Start Date End Date Compa Guevara MD [address] [place] [address] PCP - General Internal Medicine 08/18/19 Compa Guevara MD [address] [facility] [place] [address] PCP - Attributed Provider 03/17/21 Provider, No Attributed, RESOURCE [address] 08/13/16 Rain Castle, RN [address] [place] [address] Weigher OperatorLab Systems Analyst Medicine 05/18/15
--- OUTSIDE RECORDS SUMMARY | 2025-07-04 00:55 | XMS_ITS | Encounter Summary ---
Author Organization [facility] Address [address] [place] [address] [address] [place] [address] Care Team Providers Care Hyperion Essbase Developer Name Role Phone Compa Guevara MD Primary Care Provider Provider, No Attributed RESOURCE Unavailable Unavailable Rain Castle RN Unavailable Compa Guevara MD Unavailable [phone] Encounter Details Date Type Department Care Team (Late st Contact Info) Description 06/21/2025 Telephone [facility] [address] [place] [address] Yulisa Gibbs LPN [address] [place] [address] Social History Tobacco Use Types Packs/Day Years [...] How often do you attend chur or rastafarian services? Never 11/19/2023 Do you belong to [...] Answer Date Recorded PHQ-2 Total 3 04/20/2025 [facility] - Occupational [...] health care facility (including now)? No 04/20/2025 [facility] Utilities Answer Date Recorded In [...] were not included. Updated orders sent to [facility]. Luis Duran DO P Pulmonary [facility] Please send prescription for CPAP supplies on current settings to her preferred DME provider. Thankyou documented in this encounter Plan of Treatment Upcoming Encounters Date Type Department Care Team (Latest Contact Info) Description 07/06/2025 4:00 PM CDT Appointment [facility] PHYSICAL THERAPY [address] [place] [address] [place] [address] Compa Guevraa MD [address] [place] [address] Miranda Rose, PT [address] [place] [address] 07/20/2025 10:00 AM CDT Office Visit [facility] [address] [place] [address] [place] [address] Addi Matias, DPM [address] [place] [address] [place] [address] Discharge Disposition: Home, Self Care 07/22/2025 9:45 AM CDT Appointment [facility] PHYSICAL THERAPY [address] [place] [address] [place] [address] Compa Guevara MD [address] [place] [address] Miranda Rose, PT [address] [place] [address] 07/28/2025 9:30 AM BRINE PLANT OPERATOR Office Visit [facility] [address] [place] [address] Compa Guevara MD [address] [place] [address] Discharge Disposition: Home, Self Care 07/28/2025 3:15 PM BRINE PLANT OPERATOR Appointment [facility] PHYSICAL THERAPY [address] [place] [address] Compa Guevara MD [address] [place] [address] Miranda Rose, PT [address] [place] [address] 08/03/2025 9:15 AM BRINE PLANT OPERATOR Appointment [facility] PHYSICAL THERAPY [address] [place] [address] Compa Guevara MD [address] [place] [address] Miranda Rose, PT [address] [place] [address] 2025 2:30 PM BRINE PLANT OPERATOR Appointment [facility] PHYSICAL THERAPY [address] [place] [address] Compa Guevara MD [address] [place] [address] Miranda Rose, PT [address] [place] [address] 08/13/2025 9:00 AM BRINE PLANT OPERATOR Appointment [facility] PHYSICAL THERAPY [address] [place] [address] Compa Guevara MD [address] [place] [address] Rose Miranda, PT [address] [place] [address] 10/18/2025 8:30 AM BRINE PLANT OPERATOR Ancillary [facility] [address] [place] [address] Discharge Disposition: Home, Self Care documented as of this encounter Goals Goal Patient Goal Type Associated Problems Recent Progress Patient-Stated? Author DIET - REDUCE SUGAR INTAKE Diet Not on track( 10:54 AM CDT) No Rain Castle APRN-CNP DIET - KEEP A DAILY FOOD DIARY Diet Yes Mariangel Virk, RN Note: 07/17/22 Use a food journal or [employer] It mariela to document all food eaten [...] (pediatric) documented in this encounter Care Teams Hyperion Essbase Developer Relationship Specialty Start Date End Date Compa Guevara MD [address] [facility], [place] [id number] PCP - General Internal Medicine 08/18/19 Compa Guevara MD [address] [facility], [place] [id number] PCP - Attributed Provider 03/17/21 Provider, No Attributed, RESOURCE [address] 08/13/16 Rain Castle, RN [address] [facility], [place] [id number] Commercial Development ManagerSenior Linux Systems Engineer Medicine 05/18/15 documented as of this encounter
== END 2025-07-04 06:35 | disposition home or self-care (01) ==
PROVIDERS: Emergency Provider Family Medicine
DX: R42 Dizziness and giddiness (principal)
CPT/HCPCS: 96365; 96375; 99284; J2765; J3360; J7030